=== PATIENT | female | born 1955 | race Caucasian/White ===

== ENCOUNTER 2020-01-29 05:04 | Inpatient (IN) | payer MEDICARE, OTHER ==
[2020-01-29] MEDS ORDERED: SODIUM CHLORIDE 0.9% 500 ML 500 ML IV STA (05:07)
[2020-01-29] MEDS ORDERED: SODIUM CHLORIDE 0.9% 1,000 ML IV STA (05:07)
--- NOTE | 2020-01-29 05:10 | ED ---
Recheck HPI - General Stated Complaint: N-Stemi Time Seen by Provider: 01/29/20 05:06 Source: EMS, RN notes reviewed, old records reviewed, Caregiver Mode of arrival: EMS Limitations: no limitations - History of Present Illness Initial Comments: This is a 64-year-old female who is accepted in transfer from [facility] in the [facility] for evaluation here in the ER secondary to abnormal labs worsening overall clinical and mental state, significant medical history of cardiomyopathy, bl indness, failure to thrive. Patient is from an extended care facility was sent the hospital for possible evaluation regarding jaundice. Patient was found to have significant cardiomyopathy hypertension although denying chest pain severely elevated troponin, left-sided pleural effusion, shock liver as well as multiple other laboratory abnormalities. Patient here in the emergency department remains without complaint, no chest pain occasionally short of breath MD Complaint: abnormal lab (elevTroponin,Weak,LiverFail) -: unknown Initial Visit For: other (weakness, maybe jaundice (wasnt found)) Returns Today for: Called Because of Abnormal Lab/Test (elevater Troponin), persistent/worsening pain related to initial visit, other (weakness) Symptoms Since Prior Visit: no new symptoms Context: called for abnormal lab result (shock liver, chf, elevTrop) Treatments Prior to Arrival: other (unknown) - Related Data Home Medications Medication Instructions Recorded Confirmed Acetaminophen Tab [Tylenol] 650 mg PO Q6H PRN MDD 3000MG 01/29/20 01/29/20 Amiodarone [Cordarone] 200 mg PO DAILY 01/29/20 01/29/20 Ascorbic Acid [Vitamin C] 500 mg PO DAILY 01/29/20 01/29/20 Aspirin 81 mg PO DAILY 01/29/20 01/29/20 Bisoprolol [Zebeta] 5 mg PO BID@0800,1600 01/29/20 01/29/20 Calcium Carb-Vit D 500Mg-200Un 1 tab PO DAILY 01/29/20 01/29/20 [Oscal 500+D] Epoetin Jeremias [Procrit] 10,000 unit SQ WE 01/29/20 01/29/20 Ezetimibe [Zetia] 10 mg PO DAILY 01/29/20 01/29/20 Ferrous Sulfate [Feosol] 325 mg PO DAILY 01/29/20 01/29/20 Insuln Asp Prt/Insulin Aspart 13 unit SQ HS@1900 PRN 01/29/20 01/29/20 [NovoLOG MIX 70-30 VIAL] Insuln Asp Prt/Insulin Aspart 20 unit SQ DAILY@0730 PRN 01/29/20 01/29/20 [NovoLOG MIX 70-30 VIAL] Insuln Asp Prt/Insulin Aspart 30 unit SQ DAILY@1800 01/29/20 01/29/20 [NovoLOG MIX 70-30 VIAL] Multivitamins, Thera [Multivitamin 1 tab PO DAILY 01/29/20 01/29/20 (formulary)] Omeprazole [PriLOSEC] 20 mg PO DAILY 01/29/20 01/29/20 Torsemide [Demadex] 50 mg PO DAILY 01/29/20 01/29/20 Ubidecarenone [Co Q-10] 200 mg PO DAILY 01/29/20 01/29/20 Venlafaxine HCl [Effexor XR] 37.5 mg PO DAILY 01/29/20 01/29/20 Allergies Allergy/AdvReac Type Severity Reaction Status Date / Time HAVEN Inhibitors Allergy Unknown Verified 01/29/20 07:09 metformin Allergy Unknown Verified 01/29/20 07:09 simvastatin [From Zocor] Allergy Unknown Verified 01/29/20 07:09 [id number] Reductase Allergy Unknown Verified 01/29/20 07:09 Inhibitor Review of Systems ROS Statement: Those systems with pertinent positive or pertinent negative responses have been documented in the HPI. ROS Other: All systems not noted in ROS Statement are negative. General Exam - General Exam Comments Initial Comments: diffuse anasarce Limitations: altered mental status General appearance: alert, in no apparent distress Head exam: Present: atraumatic, normocephalic, normal inspection Eye exam: Present: normal appearance, other (legally blind). Absent: scleral icterus, conjunctival injection, periorbital swelling ENT exam: Present: normal exam, mucous membranes dry Neck exam: Present: normal inspection. Absent: tenderness, meningismus, lymphadenopathy Respiratory exam: Present: decreased breath sounds (no BS left side). Absent: normal lung sounds bilaterally, respiratory distress, wheezes, rales, rhonchi, stridor Cardiovascular Exam: Present: normal rhythm, tachycardia, normal heart sounds. Absent: systolic murmur, diastolic murmur, rubs, gallop, clicks GI/Abdominal exam: Present: soft, normal bowel sounds. Absent: distended, tenderness, guarding, rebound, rigid Extremities exam: Present: normal inspection, full ROM, normal capillary refill. Absent: tenderness, pedal edema, joint swelling, calf tenderness Back exam: Present: normal inspection Neurological exam: Present: alert, oriented X3, CN II-XII intact Psychiatric exam: Present: normal affect, normal mood Skin exam: Present: warm, dry, intact, normal color. Absent: rash Course Vital Signs 01/29/20 01/29/20 01/29/20 05:07 06:21 06:50 Temperature 97.6 F 98.4 F Pulse Rate 110 H 66 67 Pulse Rate [ Pulse Oximetery ] Respiratory 20 18 15 Rate Blood Pressure 128/64 118/45 136/71 Blood Pressure [Right Arm Supine] O2 Sat by Pulse 96 93 L Oximetry 01/29/20 01/29/20 01/29/20 08:28 10:00 11:51 Temperature Pulse Rate 66 66 68 Pulse Rate [ Pulse Oximetery ] Respiratory 18 18 18 Rate Blood Pressure 143/52 162/67 151/90 Blood Pressure [Right Arm Supine] O2 Sat by Pulse 93 L 94 L 92 L Oximetry 01/29/20 01/29/20 01/29/20 12:12 13:01 14:02 Temperature 98.0 F Pulse Rate 67 63 62 Pulse Rate [ Pulse Oximetery ] Respiratory 24 20 20 Rate Blood Pressure 149/68 157/100 159/67 Blood Pressure [Right Arm Supine] O2 Sat by Pulse 92 L 99 100 Oximetry 01/29/20 01/29/20 01/29/20 14:30 15:54 16:57 Temperature 97.9 F Pulse Rate 64 64 63 Pulse Rate [ Pulse Oximetery ] Respiratory 20 18 18 Rate Blood Pressure 168/74 146/71 155/68 Blood Pressure [Right Arm Supine] O2 Sat by Pulse 98 96 97 Oximetry 01/29/20 01/29/20 01/29/20 18:36 18:46 20:09 Temperature 98.1 F 97.6 F Pulse Rate Pulse Rate [ 67 65 61 Pulse Oximetery ] Respiratory 20 20 18 Rate Blood Pressure Blood Pressure 191/80 172/76 191/76 [Right Arm Supine] O2 Sat by Pulse 100 100 100 Oximetry - Reevaluation(s) Reevaluation #1: 01/29/20 06:35 medical record is reviewed spoke with transferring physician transfer paperwork is reviewed Reevaluation #2: 01/29/20 06:35 patient is without complaint here in the ED, is sleeping, weak, no CP, is SOB - Consultations Consultation #1: spoke with Dr Mccabe for cardiology will page morning upward bound director Dr Nichole humphrey re ICU spoke w John Cruz does accept admission Medical Decision Making - Medical Decision Making I 64 female to the ER for evaluation patient in regards for evaluation regarding abnormal lab tests and was accepted in transfer secondary to CHF cardiomyopathy likely recent SD with now worsening troponin, troponin is gone from 8-36 2, patient will be admitted ICU secondary to multiple significant laboratory abnormalities - Lab Data Result diagrams: 01/29/20 05:31 01/29/20 05:31 Lab Results 01/29/20 01/29/20 01/29/20 Range/Units 05:31 05:31 05:31 WBC 7.8 (3.8-10.6) k/uL RBC 3.43 L (3.80-5.40) m/uL Hgb 10.3 L (11.4-16.0) gm/dL Hct 35.2 (34.0-46.0) % MCV 102.6 H (80.0-100.0) fL MCH 30.1 (25.0-35.0) pg MCHC 29.3 L (31.0-37.0) g/dL RDW 18.9 H (11.5-15.5) % Plt Count 393 (150-450) k/uL MPV 8.2 Neutrophils % 81 % Lymphocytes % 12 % Monocytes % 5 % Eosinophils % 0 % Basophils % 0 % Neutrophils # 6.3 (1.3-7.7) k/uL Lymphocytes # 1.0 (1.0-4.8) k/uL Monocytes # 0.4 (0-1.0) k/uL Eosinophils # 0.0 (0-0.7) k/uL Basophils # 0.0 (0-0.2) k/uL Hypochromasia Marked Anisocytosis Slight Macrocytosis Moderate PT 32.7 H (9.0-12.0) sec INR 3.3 H (<1.2) APTT >200.0 H* (22.0-30.0) sec Sodium (137-145) mmol/L Potassium (3.5-5.1) mmol/L Chloride (98-107) mmol/L Carbon Dioxide (22-30) mmol/L Anion Gap mmol/L BUN (7-17) mg/dL Creatinine (0.52-1.04) mg/dL Est GFR (CKD-EPI)AfAm (>60 ml/min/1.73 sqM) Est GFR (CKD-EPI)NonAf (>60 ml/min/1.73 sqM) Glucose (74-99) mg/dL Plasma Lactic Acid Tariq (0.7-2.0) mmol/L Calcium (8.4-10.2) mg/dL Phosphorus (2.5-4.5) mg/dL Magnesium (1.6-2.3) mg/dL Ferritin (10.0-291.0) ng/mL Total Bilirubin (0.2-1.3) mg/dL AST (14-36) U/L ALT (4-34) U/L Alkaline Phosphatase (38-126) U/L Ammonia (<30) umol/L Lactate Dehydrogenase (313-618) U/L Creatine Kinase (30-135) U/L Troponin I (0.000-0.034) ng/mL C-Reactive Protein (<10.0) mg/L NT-Pro-B Natriuret Pep pg/mL Total Protein (6.3-8.2) g/dL Albumin (3.5-5.0) g/dL Lipase (23-300) U/L TSH (0.465-4.680) mIU/L Salicylates mg/dL Urine Opiates Screen Not Detected (NotDetected) Ur Oxycodone Screen Not Detected (NotDetected) Urine Methadone Screen Not Detected (NotDetected) Ur Propoxyphene Screen Not Detected (NotDetected) Acetaminophen ug/mL Ur Barbiturates Screen Not Detected (NotDetected) U Tricyclic Antidepress Not Detected (NotDetected) Ur Phencyclidine Scrn Not Detected (NotDetected) Ur Amphetamines Screen Not Detected (NotDetected) U Methamphetamines Scrn Not Detected (NotDetected) U Benzodiazepines Scrn Not Detected (NotDetected) Urine Cocaine Screen Not Detected (NotDetected) U Marijuana (THC) Screen Not Detected (NotDetected) Serum Alcohol mg/dL 01/29/20 01/29/20 01/29/20 Range/Units 05:31 05:31 05:31 WBC (3.8-10.6) k/uL RBC (3.80-5.40) m/uL Hgb (11.4-16.0) gm/dL Hct (34.0-46.0) % MCV (80.0-100.0) fL MCH (25.0-35.0) pg MCHC (31.0-37.0) g/dL RDW (11.5-15.5) % Plt Count (150-450) k/uL MPV Neutrophils % % Lymphocytes % % Monocytes % % Eosinophils % % Basophils % % Neutrophils # (1.3-7.7) k/uL Lymphocytes # (1.0-4.8) k/uL Monocytes # (0-1.0) k/uL Eosinophils # (0-0.7) k/uL Basophils # (0-0.2) k/uL Hypochromasia Anisocytosis Macrocytosis PT (9.0-12.0) sec INR (<1.2) APTT (22.0-30.0) sec Sodium 138 (137-145) mmol/L Potassium 3.7 (3.5-5.1) mmol/L Chloride 102 (98-107) mmol/L Carbon Dioxide 28 (22-30) mmol/L Anion Gap 8 mmol/L BUN 93 H (7-17) mg/dL Creatinine 2.27 H (0.52-1.04) mg/dL Est GFR (CKD-EPI)AfAm 25 (>60 ml/min/1.73 sqM) Est GFR (CKD-EPI)NonAf 22 (>60 ml/min/1.73 sqM) Glucose 239 H (74-99) mg/dL Plasma Lactic Acid Tariq 1.7 (0.7-2.0) mmol/L Calcium 9.0 (8.4-10.2) mg/dL Phosphorus 7.1 H (2.5-4.5) mg/dL Magnesium 2.1 (1.6-2.3) mg/dL Ferritin 1713.9 H (10.0-291.0) ng/mL Total Bilirubin 0.7 (0.2-1.3) mg/dL AST 1010 H (14-36) U/L ALT 879 H (4-34) U/L Alkaline Phosphatase 301 H (38-126) U/L Ammonia <9 (<30) umol/L Lactate Dehydrogenase 2381 H (313-618) U/L Creatine Kinase 174 H (30-135) U/L Troponin I 32.000 H* (0.000-0.034) ng/mL C-Reactive Protein 13.3 H (<10.0) mg/L NT-Pro-B Natriuret Pep pg/mL Total Protein 6.0 L (6.3-8.2) g/dL Albumin 2.9 L (3.5-5.0) g/dL Lipase 236 (23-300) U/L TSH 3.470 (0.465-4.680) mIU/L Salicylates <1.0 mg/dL Urine Opiates Screen (NotDetected) Ur Oxycodone Screen (NotDetected) Urine Methadone Screen (NotDetected) Ur Propoxyphene Screen (NotDetected) Acetaminophen <10.0 ug/mL Ur Barbiturates Screen (NotDetected) U Tricyclic Antidepress (NotDetected) Ur Phencyclidine Scrn (NotDetected) Ur Amphetamines Screen (NotDetected) U Methamphetamines Scrn (NotDetected) U Benzodiazepines Scrn (NotDetected) Urine Cocaine Screen (NotDetected) U Marijuana (THC) Screen (NotDetected) Serum Alcohol <10 mg/dL 01/29/20 01/29/20 Range/Units 05:31 05:31 WBC (3.8-10.6) k/uL RBC (3.80-5.40) m/uL Hgb (11.4-16.0) gm/dL Hct (34.0-46.0) % MCV (80.0-100.0) fL MCH (25.0-35.0) pg MCHC (31.0-37.0) g/dL RDW (11.5-15.5) % Plt Count (150-450) k/uL MPV Neutrophils % % Lymphocytes % % Monocytes % % Eosinophils % % Basophils % % Neutrophils # (1.3-7.7) k/uL Lymphocytes # (1.0-4.8) k/uL Monocytes # (0-1.0) k/uL Eosinophils # (0-0.7) k/uL Basophils # (0-0.2) k/uL Hypochromasia Anisocytosis Macrocytosis PT (9.0-12.0) sec INR (<1.2) APTT (22.0-30.0) sec Sodium (137-145) mmol/L Potassium (3.5-5.1) mmol/L Chloride (98-107) mmol/L Carbon Dioxide (22-30) mmol/L Anion Gap mmol/L BUN (7-17) mg/dL Creatinine (0.52-1.04) mg/dL Est GFR (CKD-EPI)AfAm (>60 ml/min/1.73 sqM) Est GFR (CKD-EPI)NonAf (>60 ml/min/1.73 sqM) Glucose (74-99) mg/dL Plasma Lactic Acid Tariq (0.7-2.0) mmol/L Calcium (8.4-10.2) mg/dL Phosphorus (2.5-4.5) mg/dL Magnesium (1.6-2.3) mg/dL Ferritin (10.0-291.0) ng/mL Total Bilirubin (0.2-1.3) mg/dL AST (14-36) U/L ALT (4-34) U/L Alkaline Phosphatase (38-126) U/L Ammonia (<30) umol/L Lactate Dehydrogenase (313-618) U/L Creatine Kinase (30-135) U/L Troponin I (0.000-0.034) ng/mL C-Reactive Protein (<10.0) mg/L NT-Pro-B Natriuret Pep 35321 pg/mL Total Protein (6.3-8.2) g/dL Albumin (3.5-5.0) g/dL Lipase (23-300) U/L TSH (0.465-4.680) mIU/L Salicylates mg/dL Urine Opiates Screen (NotDetected) Ur Oxycodone Screen (NotDetected) Urine Methadone Screen (NotDetected) Ur Propoxyphene Screen (NotDetected) Acetaminophen ug/mL Ur Barbiturates Screen (NotDetected) U Tricyclic Antidepress (NotDetected) Ur Phencyclidine Scrn (NotDetected) Ur Amphetamines Screen (NotDetected) U Methamphetamines Scrn (NotDetected) U Benzodiazepines Scrn (NotDetected) Urine Cocaine Screen (NotDetected) U Marijuana (THC) Screen (NotDetected) Serum Alcohol <10 mg/dL - EKG Data -: EKG Interpreted by Me (EKG is sinus rhythm 70 ME 200 QRS 112 QTC 434) - Radiology Data Radiology results: report reviewed (CXR shows significant L pleural effusion ), image reviewed Critical Care Time Critical Care Time: Yes Total Critical Care Time: 31 Disposition Clinical Impression: CHF (congestive heart failure), Pleural effusion, left, NSTEMI (non-ST elevated myocardial infarction), Weakness, CKD (chronic kidney disease), Shock liver, Elevated troponin Disposition: ADMITTED IP TO THIS [facility] Condition: Critical Is patient prescribed a controlled substance at d/c from ED?: No
[2020-01-29] MEDS ORDERED: methylPREDNISolone SOD SUCCI 125 MG/2 ML VIAL IV STA (06:05)
[2020-01-29] MEDS ORDERED: MORPHINE SULFATE 4 MG/ML SYRINGE IV PRN (06:05)
[2020-01-29] MEDS ORDERED: IPRATROPIUM-ALBUTEROL 3 ML NEB INHALATION STA (06:05)
[2020-01-29] MEDS ORDERED: NITROGLYCERIN SL TABS 0.4 MG TAB SUBLINGUAL PRN (06:05)
[2020-01-29 06:13] LABS: Lactic Acid, Venous 1.7 mmol/L (0.7-2.0)
[2020-01-29 06:19] LABS: Anisocytosis Slight; Basophils % (A) 0 %; Eosinophils % (A) 0 %; HCT 35.2 % (34.0-46.0); HGB 10.3 gm/dL (11.4-16.0); Hypochromasia Marked; Lymphocytes % (A) 12 %; MCH 30.1 pg (25.0-35.0); MCHC 29.3 g/dL (31.0-37.0); MCV 102.6 fL (80.0-100.0); Macrocytosis Moderate; Mean Platelet Volume 8.2; Monocytes # (A) 0.4 k/uL (0-1.0); Monocytes % (A) 5 %; Neutrophils # (A) 6.3 k/uL (1.3-7.7); Neutrophils % (A) 81 %; Platelet Count 393 k/uL (150-450); RBC 3.43 m/uL (3.80-5.40); RDW 18.9 % (11.5-15.5); WBC 7.8 k/uL (3.8-10.6)
[2020-01-29 06:37] LABS: INR 3.3 (<1.2); Prothrombin Time 32.7 sec (9.0-12.0)
[2020-01-29 06:48] LABS: Acetaminophen <10.0 ug/mL; African American GFR (CKD) 25 (>60 ml/min/1.73 sqM); Albumin 2.9 g/dL (3.5-5.0); Alcohol <10 mg/dL; Alkaline Phosphatase 301 U/L (38-126); Anion Gap 8 mmol/L; Blood Urea Nitrogen 93 mg/dL (7-17); C Reactive Protein 13.3 mg/L (<10.0); Carbon Dioxide 28 mmol/L (22-30); Chloride 102 mmol/L (98-107); Creatine Kinase 174 U/L (30-135); Glucose 239 mg/dL (74-99); Lipase 236 U/L (23-300); Magnesium 2.1 mg/dL (1.6-2.3); Non-African American GFR(CKD) 22 (>60 ml/min/1.73 sqM); Phosphorus 7.1 mg/dL (2.5-4.5); Potassium 3.7 mmol/L (3.5-5.1); Salicylate <1.0 mg/dL; Sodium 138 mmol/L (137-145); Total Bilirubin 0.7 mg/dL (0.2-1.3)
[2020-01-29] MEDS ORDERED: NALOXONE 0.4 MG/ML 1 ML VIAL IV PRN (06:53)
[2020-01-29 06:54] LABS: ALT 879 U/L (4-34); AST 1010 U/L (14-36); LDH 2381 U/L (313-618)
[2020-01-29] MEDS ORDERED: HEPARIN SODIUM,PORCINE 5,000 UNIT/ML 1 ML VIAL IV PRN (06:54)
[2020-01-29 06:55] LABS: Amphetamine Screen,Urine Not Detected (NotDetected); Barbiturate Screen,Urine Not Detected (NotDetected); Benzodiazepines Screen,Urine Not Detected (NotDetected); Cocaine Screen,Urine Not Detected (NotDetected); Methadone Screen, Urine Not Detected (NotDetected); Opiate Screen,Urine Not Detected (NotDetected); Oxycodone Screen, Urine Not Detected (NotDetected); Phencyclidine Screen,Urine Not Detected (NotDetected); Tricyclic Antidepressant,Urine Not Detected (NotDetected); Urn Cannabinoid Scrn Not Detected (NotDetected)
[2020-01-29 06:56] LABS: Partial Thromboplastin Time >200.0 sec (22.0-30.0)
[2020-01-29] MEDS ORDERED: IPRATROPIUM-ALBUTEROL 3 ML NEB INHALATION SCH (08:00)
[2020-01-29 09:04] LABS: VBG PH 7.42 (7.31-7.41)
[2020-01-29] MEDS ORDERED: FUROSEMIDE 10 MG/ML 10 ML VIAL IV SCH (10:15)
--- NOTE | 2020-01-29 11:00 | ECHOF ---
Referral Reason:elevTrop MEASUREMENTS -------- HEIGHT: 162.6 cm WEIGHT: 103.4 kg BP: 136/71 RVIDd: 2.6 cm (< 3.3) IVSd: 1.1 cm (0.6 - 1.1) LVIDd: 3.7 cm (3.9 - 5.3) LVPWd: 1.2 cm (0.6 - 1.1) IVSs: 1.5 cm LVIDs: 2.7 cm LVPWs: 1.3 cm Ao Diam: 3.2 cm (2.0 - 3.7) AV Cusp: 1.0 cm (1.5 - 2.6) LA Diam: 3.7 cm (2.7 - 3.8) MV EXCURSION: 14.447 mm (> 18.000) MV EF SLOPE: 41 mm/s (70 - 150) EPSS: 0.7 cm MV E Pato: 0.65 m/s MV DecT: 238 ms MV A Pato: 0.54 m/s MV E/A Ratio: 1.20 AV maxP.17 mmHg AV meanP.89 mmHg RAP: 5.00 mmHg RVSP: 12.67 mmHg FINDINGS -------- This was a technically difficult study with suboptimal views. Pt. not compliant. The left ventricular size is normal. Left ventricular wall thickness is normal. There is severe g lobal hypokinesis of LV . Overall left ventricular systolic function is severely impaired with, an EF between 20 - 25 %. The RV was not well visualized but appears promident The left atrium was not well visualized. The right atrial size is normal. xx ml of Lumason was utilized for enhancement of images. AOV is possible Bicuspid. There is severe calcification with decreased leaflet excursion of the aor tic valve. Vmax is 2.06 m/s however dimensionless index of 0.28 consistent with moderate to severe a oritc stenosis. Degree of aortic stenosis likely underestimated due to low EF. Would recommend BAYRON, dobutamine stress echo or CT calcium scoring to further assess the degree of aortic stenosis if clin ically indicated. The mitral valve is normal. The mitral valve leaflets are mildly thickened. Mild mitral regurgita tion is present. The tricuspid valve appears structurally normal. Mild tricuspid regurgitation present. Right vent ricular systolic pressure is normal at < 35 mmHg. There is no pulmonic regurgitation present. The aortic root size is normal. IVC Not well visulized. There is a small, generalized pericardial effusion present. Large Pleural Effusion. CONCLUSIONS -------- 1. The left ventricular size is normal. 2. Left ventricular wall thickness is normal. 3. There is severe global hypokinesis of LV . 4. Overall left ventricular systolic function is severely impaired with, an EF between 20 - 25 %. 5. The RV was not well visualized but appears prominent. 6. RV Promident 7. There is severe calcification with decreased leaflet excursion of the aortic valve. Vmax is 2.06 m/s however dimensionless index of 0.28 consistent with moderate to severe aoritc stenosis. Degree o f aortic stenosis likely underestimated due to low EF. Would recommend BAYRON, dobutamine stress echo o r CT calcium scoring to further assess the degree of aortic stenosis if clinically indicated. 8. The mitral valve leaflets are mildly thickened. 9. Mild mitral regurgitation is present. 10. Mild tricuspid regurgitation present. 11. There is a small, generalized pericardial effusion present. 12. Large Pleural Effusion. HORSE DOCTOR: Claudia Schmidt RDCS
--- NOTE | 2020-01-29 11:29 | US ---
EXAMINATION TYPE: US abdomen complete DATE OF EXAM: 01/29/2020 COMPARISON: NONE CLINICAL HISTORY: transaminitis. elevated liver enzymes, cholecystectomy EXAM MEASUREMENTS: Liver Length: 13.1 cm Gallbladder Wall: Surgically absent CBD: 0.5 cm Right Kidney: 10.9 x 5.0 x 4.2 cm Extreme technical limitations due to patient's body habitus, morbidly obese and large amount of ove rlying bowel content Pancreas: Obscured by bowel gas Liver: only visualized intercostally, no obvious mass Gallbladder: Surgically absent Evidence for sonographic Allen's sign: no CBD: appears wnl Spleen/left kidney: unable to visualize, patient lying on left side and unable to move from that pos ition and with large body habitus, unable to visualize spleen or left kidney Right Kidney: no evidence of hydronephrosis Upper IVC: wnl Abd Aorta: Obscured by overlying bowel gas The liver is homogenous. The intrahepatic portion of the IVC and proximal abdominal aorta are within normal limits. There is no evidence of cholelithiasis. Common bile duct is unremarkable. The sple en is seen. Right kidney is symmetric and free of hydronephrosis. No renal lesions are seen, and cor tical medullary differentiation is maintained. IMPRESSION: There are limitations the exam. Postop changes.
--- NOTE | 2020-01-29 11:41 | P.HPIM ---
History of Present Illness H&P Date: 01/29/20 Chief Complaint: SOB The patient is a 64-year-old female with a history of chronic kidney disease, diabetes type 2 was hospitalized in [facility] on December 17 and after a three-week hospitalization patient was transferred to extended care facility. The patient was managed conservatively husbands states on initial presentation she had a rapid heart rate. He states that at time of discharge patient was also diagnosed with liver failure. The patient was in rehab and her spouse stated that he was notified that she was looking yellow so she was taken to outside facility. In the hospital patient was diagnosed with a non-ST elevation NM, elevated troponin, transaminitis, renal failure she was transferred for further care. The patient was seen in the emergency room, she denied chest pain , her main complaint was SOB. The patient was hospitalized for further work-upp and management. Review of Systems complete review of systems was done and negative other than as stated above Past Medical History Past Medical History: Atrial Fibrillation, GERD/Reflux, Hypertension, Renal Disease Additional Past Medical History / Comment(s): CHF History of Any Multi-Drug Resistant Organisms: None Reported Past Surgical History: No Surgical Hx Reported Past Psychological History: No Psychological Hx Reported Smoking Status: Never smoker Past Alcohol Use History: None Reported Past Drug Use History: None Reported Medications and Allergies Home Medications Medication Instructions Recorded Confirmed Type Acetaminophen Tab [Tylenol] 650 mg PO Q6H PRN MDD 3000MG 01/29/20 01/29/20 History Amiodarone [Cordarone] 200 mg PO DAILY 01/29/20 01/29/20 History Ascorbic Acid [Vitamin C] 500 mg PO DAILY 01/29/20 01/29/20 History Aspirin 81 mg PO DAILY 01/29/20 01/29/20 History Bisoprolol [Zebeta] 5 mg PO BID@0800,1600 01/29/20 01/29/20 History Calcium Carb-Vit D 500Mg-200Un 1 tab PO DAILY 01/29/20 01/29/20 History [Oscal 500+D] Epoetin Jeremias [Procrit] 10,000 unit SQ WE 01/29/20 01/29/20 History Ezetimibe [Zetia] 10 mg PO DAILY 01/29/20 01/29/20 History Ferrous Sulfate [Feosol] 325 mg PO DAILY 01/29/20 01/29/20 History Insuln Asp Prt/Insulin Aspart 13 unit SQ HS@1900 PRN 01/29/20 01/29/20 History [NovoLOG MIX 70-30 VIAL] Insuln Asp Prt/Insulin Aspart 20 unit SQ DAILY@0730 PRN 01/29/20 01/29/20 History [NovoLOG MIX 70-30 VIAL] Insuln Asp Prt/Insulin Aspart 30 unit SQ DAILY@1800 01/29/20 01/29/20 History [NovoLOG MIX 70-30 VIAL] Multivitamins, Thera [Multivitamin 1 tab PO DAILY 01/29/20 01/29/20 History (formulary)] Omeprazole [PriLOSEC] 20 mg PO DAILY 01/29/20 01/29/20 History Torsemide [Demadex] 50 mg PO DAILY 01/29/20 01/29/20 History Ubidecarenone [Co Q-10] 200 mg PO DAILY 01/29/20 01/29/20 History Venlafaxine HCl [Effexor XR] 37.5 mg PO DAILY 01/29/20 01/29/20 History Allergies Allergy/AdvReac Type Severity Reaction Status Date / Time HAVEN Inhibitors Allergy Unknown Verified 01/29/20 07:09 metformin Allergy Unknown Verified 01/29/20 07:09 simvastatin [From Zocor] Allergy Unknown Verified 01/29/20 07:09 Bftdnml-Jed-Vti Reductase Allergy Unknown Verified 01/29/20 07:09 Inhibitor Physical Exam Vitals: Vital Signs Temp Pulse Resp BP Pulse Ox 01/29/20 08:28 66 18 143/52 93 L 01/29/20 06:50 98.4 F 67 15 136/71 93 L 01/29/20 06:21 66 18 118/45 96 01/29/20 05:07 97.6 F 110 H 20 128/64 Intake and Output 01/28/20 01/29/20 01/29/20 22:59 06:59 14:59 Other: Weight 103.419 kg - Constitutional General appearance: no acute distress - EENT Eyes: PERRLA - Respiratory Respiratory: bilateral: diminished - Cardiovascular Rhythm: regular Abnormal Heart Sounds: systolic murmur ankle Peripheral Edema: bilateral: 2+ - Gastrointestinal General gastrointestinal: normal bowel sounds, soft - Integumentary Integumentary: normal - Neurologic Neurologic: CNII-XII intact - Musculoskeletal Musculoskeletal: strength equal bilaterally - Psychiatric Alert and oriented x 2 Psychiatric: appropriate affect Results CBC & Chem 7: 01/29/20 05:31 01/29/20 05:31 Labs: Abnormal Lab Results - Last 24 Hours (Table) 01/29/20 01/29/20 01/29/20 Range/Units 05:31 05:31 05:31 RBC 3.43 L (3.80-5.40) m/uL Hgb 10.3 L (11.4-16.0) gm/dL MCV 102.6 H (80.0-100.0) fL MCHC 29.3 L (31.0-37.0) g/dL RDW 18.9 H (11.5-15.5) % PT 32.7 H (9.0-12.0) sec INR 3.3 H (<1.2) APTT >200.0 H* (22.0-30.0) sec VBG pH (7.31-7.41) VBG pCO2 (37-51) mmHg VBG HCO3 (24-28) mmol/L BUN 93 H (7-17) mg/dL Creatinine 2.27 H (0.52-1.04) mg/dL Glucose 239 H (74-99) mg/dL Phosphorus 7.1 H (2.5-4.5) mg/dL AST 1010 H (14-36) U/L ALT 879 H (4-34) U/L Alkaline Phosphatase 301 H (38-126) U/L Lactate Dehydrogenase 2381 H (313-618) U/L Creatine Kinase 174 H (30-135) U/L Troponin I (0.000-0.034) ng/mL C-Reactive Protein 13.3 H (<10.0) mg/L Total Protein 6.0 L (6.3-8.2) g/dL Albumin 2.9 L (3.5-5.0) g/dL 01/29/20 01/29/20 01/29/20 Range/Units 05:31 08:50 08:50 RBC (3.80-5.40) m/uL Hgb (11.4-16.0) gm/dL MCV (80.0-100.0) fL MCHC (31.0-37.0) g/dL RDW (11.5-15.5) % PT (9.0-12.0) sec INR (<1.2) APTT (22.0-30.0) sec VBG pH 7.42 H (7.31-7.41) VBG pCO2 33 L (37-51) mmHg VBG HCO3 21 L (24-28) mmol/L BUN (7-17) mg/dL Creatinine (0.52-1.04) mg/dL Glucose (74-99) mg/dL Phosphorus (2.5-4.5) mg/dL AST (14-36) U/L ALT (4-34) U/L Alkaline Phosphatase (38-126) U/L Lactate Dehydrogenase (313-618) U/L Creatine Kinase (30-135) U/L Troponin I 32.000 H* 24.200 H* (0.000-0.034) ng/mL C-Reactive Protein (<10.0) mg/L Total Protein (6.3-8.2) g/dL Albumin (3.5-5.0) g/dL Assessment and Plan (1) NSTEMI (non-ST elevated myocardial infarction) Narrative/Plan: Discussed with Dr. Dickerson of cardiology,, plan for conservative management, IV Heparin with close monitoring Current Visit: Yes Status: Acute Code(s): I21.4 - NON-ST ELEVATION (NSTEMI) MYOCARDIAL INFARCTION SNOMED Code(s): 21754245 (2) CHF (congestive heart failure) Narrative/Plan: Acute on chronic systolic heart failure, strict I's and O's, daily weights, recent thoracentesis Current Visit: Yes Status: Acute Code(s): I50.9 - HEART FAILURE, UNSPECIFIED SNOMED Code(s): 57585429 (3) Pleural effusion, left Narrative/Plan: The patient spouse stated patient had a recent thoracentesis on Saturday we'll continue to monitor Current Visit: Yes Status: Acute Code(s): J90 - PLEURAL EFFUSION, NOT ELSEWHERE CLASSIFIED SNOMED Code(s): 67490349 (4) Diabetes Narrative/Plan: Continue to monitor, sliding scale coverage Current Visit: Yes Status: Acute Code(s): E11.9 - TYPE 2 DIABETES MELLITUS WITHOUT COMPLICATIONS SNOMED Code(s): 92737518 (5) CKD (chronic kidney disease) Narrative/Plan: Chronic kidney disease will monitor on really dose meds as needed Current Visit: Yes Status: Acute Code(s): N18.9 - CHRONIC KIDNEY DISEASE, UNSPECIFIED SNOMED Code(s): 774918928 Plan: Discussed CODE STATUS with patient's spouse, he understands the overall patient's prognosis is poor given her multi-organ failure, she does not have a POA
[2020-01-29] MEDS: METOPROLOL TARTRATE 25 MG TAB PO SCH ×2 (11:46→20:25)
[2020-01-29 11:55] LABS: Ferritin 1713.9 ng/mL (10.0-291.0)
[2020-01-29] MEDS ORDERED: methylPREDNISolone SOD SUCCI 125 MG/2 ML VIAL IV SCH (12:00)
[2020-01-29] MEDS: HEPARIN SOD,PORK IN 0.45% NACL 25,000 UNIT in 0.45% NACL 1 250ML.BAG IV SCH (14:26)
[2020-01-29] MEDS: NITROGLYCERIN OINT 1 INCH/GM PACKET TOPICAL SCH ×3 (14:56→23:06)
--- NOTE | 2020-01-29 16:06 | CONS ---
CONSULTATION This is a 64-year-old lady with type 2 diabetes and chronic kidney disease who has been living in a [facility] facility for the last couple of months. She has had multiple hospitalizations since November of this year. Apparently she presented with weakness and also had a myocardial infarction in late November and was hospitalized in [facility] and subsequently after a 3-week hospital stay, she was sent to an extended-care facility. I spoke to the patient's and obtained most of the details. The patient was diagnosed with liver failure, was in rehab for some recovery, and then developed some jaundice. She was taken to a hospital from her extended-care facility, was found to have elevated troponin and liver enzymes and was transferred here. At the time of my evaluation, patient is somewhat lethargic, does not give me much history, but insists that she does not have any chest pain or shortness of breath; she just feels weak and tired. Her shortness of breath has also improved since she came here. PAST MEDICAL HISTORY: 1. The patient has a history of atrial fibrillation documented in the chart, not verified by the patient's or by the patient. 2. She has history of type 2 diabetes. 3. Chronic kidney disease. 4. Hypertension. 5. Obesity. 6. Recent liver abnormalities; details are unclear. Please refer to the detailed History and Physical. MEDICATIONS: At home include amiodarone 200 mg daily, vitamin supplements, bisoprolol, aspirin 81 mg daily, Procrit injections, NovoLog insulin, omeprazole, Demodex, and she also takes Effexor. ALLERGIES: She is ALLERGIC TO METFORMIN, SIMVASTATIN AND HAVEN INHIBITORS. PHYSICAL EXAMINATION: On examination, blood pressure is 140/70. Pulse rate is 68 per minute, regular. HEENT: Unremarkable. Fundus was not examined by me. NECK: Supple. There is JVD of 1 cm. No carotid bruit. Heart exam reveals S1, S2 with ejection systolic murmur audible at the base of the heart. Second heart sound is preserved. Lungs reveal bilateral diminished air entry. Abdomen is distended, nontender. Lower extremities reveal bilateral mild edema, diminished pulses. CENTRAL NERVOUS SYSTEM: Grossly no focal deficits, but I did not do a detailed exam. EKG revealed sinus mechanism, poor R-wave progression over precordial leads, nonspecific ST-T changes, IVCD type picture. LABORATORY DATA: Laboratory data revealed that initial troponin was elevated at 32 and has come down to 24. Thyroid functions are normal. Creatinine is 2.27 and white count is normal. BNP is elevated at 85,000. Patient is COVID-negative. IMPRESSION: 1. Subacute [id number] myocardial infarction with congestive heart failure clinically. 2. Obesity. 3. Liver function abnormalities; apparently had some liver issues but details are unclear. Patient was on amiodarone. 4. Type 2 diabetes with chronic kidney disease. 5. History of myocardial infarction in late November, treated conservatively. RECOMMENDATIONS: This patient has multiple comorbid conditions and I would not recommend any aggressive intervention for her. I explained this to the patient. I also spoke to her at length. I am recommending that we heparinize her, but we have to be very careful with the heparin because her PTT may go high in view of liver function abnormalities. Echo revealed global decrease in contractility, estimated ejection fraction of about 25% or less. There is also evidence of some pulmonary hypertension clinically and also possibly some mild aortic stenosis based on clinical examination, but I think this would be mild. I will also obtain an ultrasound of the abdomen if possible in view of her liver function abnormalities. Prognosis remains very poor. I am not recommending any aggressive intervention, and I explained this to the patient. I suspect her myocardial infarction was at least 24 hours ago, based on the clinical picture. Prognosis remains poor. MMMAYDAL / IJN: [id number] /
[2020-01-29] MEDS: FUROSEMIDE 100 MG in SODIUM CHLORIDE 0.9% 90 ML IV SCH ×2 (16:55→23:28)
[2020-01-29 17:45] LABS: Glucose,Whole Blood 236 mg/dL (75-99)
[2020-01-29] MEDS ORDERED: INSULN ASP PRT/INSULIN ASPART 100 UNIT/ML 10 ML VIAL SQ SCH (18:00)
[2020-01-29] MEDS ORDERED: INSULN ASP PRT/INSULIN ASPART 100 UNIT/ML 10 ML VIAL SQ PRN (19:00)
--- NOTE | 2020-01-29 19:45 | P.CNPUL ---
History of Present Illness Consult date: 01/29/20 Reason for consult: pleural effusion History of present illness: This is a 64-year-old female patient and I've asked to see this patient because of a pleural effusion that was on the left side that was identified on the chest x-ray. This was a large left-sided pleural effusion. I came and saw the patient in the emergency department. He was supposed to go to the intensive care unit. I did a discussion with her was at the bedside. This patient has a very complicated medical history. The patient is legally blind and she has underlying diabetes mellitus. She has history of severe cardiomyopathy, CHF, valvular heart disease , previous coronary artery disease with myocardial infarctions and chronic atrial fibrillation. She has also chronic liver disease probably related to her CHF. The patient Was admitted to [facility] on multiple occasions regarding her medical problems. Most of her physicians are either in [facility] or [facility] in [facility]. She was sent to a halfway facility and she was referred to us for worsening shortness of breath. At a time of admission, the patient was found to be p rofoundly weak and debilitated. She does have diffuse anasarca with extensive edema in lower extremities bilaterally. Her troponin was positive. She denied having any chest pain. Nevertheless, her troponin max was found to be 32 and his progress and the downtrending is down to 17 for now. Meanwhile, the patient's proBNP level was 19,800. She had an acute kidney injury with a creatinine of 2.27 with a mean of 93. I think she does have an underlying chronic kidney disease. Her baseline creatinine is not known to me at this point in time. The patient had a bedside echocardiogram during this current hospital stay and the echo showed an ejection fraction of 20-25% and the patient had severe global hypokinesis of the LV. RV was not a critically visualized. The patient has a a possible bicuspid valve. There was severe calcification within the valves. There was also evidence of moderate to severe aortic stenosis. The degree of the aortic stenosis could not be estimated as the pat ient had a poor ejection fraction. Rest of the valves were adequate for now. There was a large left-sided pleural effusion that was also confirmed by a chest x-ray that was done at time of admission. Her cardiac rhythm was normal sinus. The patient had Q waves throughout the anterolateral leads indicating a previous KS. Ultrasound of the abdomen was essentially nonspecific. Upon further ques tioning, the patient states that she has received a recent thoracentesis of the left lung that was done in [facility] and the procedure itself did not give her much relief. Unfortunately, none of this information is available to me at a time of my evaluation. The patient herself is a poor historian. Some of the information is provided by the who is not detailed in his descriptions in terms of the patient's medical problems. For now, the patient is having some shortness of breath even at rest. She has orthopnea. She is profoundly fatigued and weak and lethargic and debilitated. LFTs were also abnormal with a AST of 1010 and ALT of 879. The patient's CRP was 13, LDH was 2081, ammonia level was less than 9. A routine coronavirus/Covid 19 nasal swab came back negative. Her serum albumin is at 2.9. Noted the patient's baseline performance and functional status is extremely poor. The patient is currently nonambulatory. She is 24 hour care and halfway facility. Review of Systems Constitutional: Reports daytime sleepiness, Reports fatigue, Reports lethargy, Reports poor appetite, Reports weakness, Reports weight gain Eyes: bilateral decreased vision, bilateral loss of peripheral vision, bilateral loss of vision Ears: deny: decreased hearing, ear discharge, earache, tinnitus Ears, nose, mouth and throat: Denies headache, Denies sore throat Breasts: absent: as per HPI, change in shape, gynecomastia, masses, nipple d ischarge, pain, skin changes, swelling Cardiovascular: Reports decreased exercise tolerance, Reports dyspnea on exertion, Reports edema, Reports leg edema, Reports paroxysmal nocturnal dyspnea, Reports shortness of breath Respiratory: Reports dyspnea Gastrointestinal: Reports as per HPI Genitourinary: Reports as per HPI Menstruation: Reports as per HPI Musculoskeletal: Reports as per HPI Musculoskeletal: bilateral: ankle swelling, absent: ankle pain, ankle stiffness Integumentary: Reports as per HPI Neurological: Reports as per HPI, Reports balance difficulties, Reports gait dysfunction, Reports weakness Psychiatric: Reports as per HPI Endocrine: Reports as per HPI Hematologic/Lymphatic: Reports as per HPI Allergic/Immunologic: Reports as per HPI Past Medical History Past Medical History: Atrial Fibrillation, GERD/Reflux, Hypertension, Renal Disease Additional Past Medical History / Comment(s): Coronary artery disease, previous KS, his history of atrial fibrillation, severe aortic stenosis, bicuspid aortic valve, congestion heart failure with impaired ejection fraction of 20-25%, chronic liver disease, chronic kidney disease, chronic anasarca and lower extremity edema, chronic left-sided pleural effusion History of Any Multi-Drug Resistant Organisms: None Reported Past Surgical History: No Surgical Hx Reported Past Psychological History: No Psychological Hx Reported Smoking Status: Never smoker Past Alcohol Use History: None Reported Past Drug Use History: None Reported Medications and Allergies Home Medications Medication Instructions Recorded Confirmed Type Acetaminophen Tab [Tylenol] 650 mg PO Q6H PRN MDD 3000MG 01/29/20 01/29/20 History Amiodarone [Cordarone] 200 mg PO DAILY 01/29/20 01/29/20 History Ascorbic Acid [Vitamin C] 500 mg PO DAILY 01/29/20 01/29/20 History Aspirin 81 mg PO DAILY 01/29/20 01/29/20 History Bisoprolol [Zebeta] 5 mg PO BID@0800,1600 01/29/20 01/29/20 History Calcium Carb-Vit D 500Mg-200Un 1 tab PO DAILY 01/29/20 01/29/20 History [Oscal 500+D] Epoetin Jeremias [Procrit] 10,000 unit SQ WE 01/29/20 01/29/20 History Ezetimibe [Zetia] 10 mg PO DAILY 01/29/20 01/29/20 History Ferrous Sulfate [Feosol] 325 mg PO DAILY 01/29/20 01/29/20 History Insuln Asp Prt/Insulin Aspart 13 unit SQ HS@1900 PRN 01/29/20 01/29/20 History [NovoLOG MIX 70-30 VIAL] Insuln Asp Prt/Insulin Aspart 20 unit SQ DAILY@0730 PRN 01/29/20 01/29/20 His tory [NovoLOG MIX 70-30 VIAL] Insuln Asp Prt/Insulin Aspart 30 unit SQ DAILY@1800 01/29/20 01/29/20 History [NovoLOG MIX 70-30 VIAL] Multivitamins, Thera [Multivitamin 1 tab PO DAILY 01/29/20 01/29/20 History (formulary)] Omeprazole [PriLOSEC] 20 mg PO DAILY 01/29/20 01/29/20 History Torsemide [Demadex] 50 mg PO DAILY 01/29/20 01/29/20 History Ubidecarenone [Co Q-10] 200 mg PO DAILY 01/29/20 01/29/20 History Venlafaxine HCl [Effexor XR] 37.5 mg PO DAILY 01/29/20 01/29/20 History Allergies Allergy/AdvReac Type Severity Reaction Status Date / Time HAVEN Inhibitors Allergy Unknown Verified 01/29/20 07:09 metformin Allergy Unknown Verified 01/29/20 07:09 simvastatin [From Zocor] Allergy Unknown Verified 01/29/20 07:09 [id number]-Hko-Yfj Reductase Allergy Unknown Verified 01/29/20 07:09 Inhibitor Physical Exam Vitals: Vital Signs Temp Pulse Pulse Resp BP BP Pulse Ox 01/29/20 18:46 65 20 172/76 100 01/29/20 18:36 98.1 F 67 20 191/80 100 01/29/20 16:57 63 18 155/68 97 01/29/20 15:54 64 18 146/71 96 01/29/20 14:30 97.9 F 64 20 168/74 98 01/29/20 14:02 62 20 159/67 100 01/29/20 13:01 63 20 157/100 99 01/29/20 12:12 98.0 F 67 24 149/68 92 L 01/29/20 11:51 68 18 151/90 92 L 01/29/20 10:00 66 18 162/67 94 L 01/29/20 08:28 66 18 143/52 93 L 01/29/20 06:50 98.4 F 67 15 136/71 93 L 01/29/20 06:21 66 18 118/45 96 01/29/20 05:07 97.6 F 110 H 20 128/64 Intake and Output 01/29/20 01/29/20 01/29/20 06:59 14:59 22:59 Other: Voiding Method Indwelling Catheter Weight 103.419 kg The patient is legally blind. She is able to communicate patient is very much lethargic and somnolent. She is arousable. She can state few sentences. She is nonambulatory. She is extremely weak. Head exam was generally normal. There was no scleral icterus or corneal arcus. Mucous membranes were moist. Neck was supple and with jugular venous distension, no thyromegaly, or carotid bruits. Carotids were easily palpable bilaterally. There was no adenopathy. lung sounds are absent on the left compared to right. There is consistent with a pleural effusion on the left. There is also dullness to percussion. Heart sounds are irregular and there is a systolic ejection murmur grade 3/6 heard throughout the precordium. Abdomen is obese soft nontender. No ascites. No direct tenderness 1 tensile guarding. There is anterior abdominal wall edema Extremities revealed extensive edema bilaterally with pitting +2. No cyanosis. No clubbing. Neurologically, the patient is somnolent and sleepy at arousable. There is global weakness in all 4 extremities. His motor weakness as the patient is un able to even raise her head off the bed. Reflexes symmetrical bilaterally. Tubes are equal and reactive to light. No facial asymmetry. She is arousable. She can communicate. She is alert and oriented 2-3. Results - Laboratory Findings CBC and BMP: 01/29/20 05:31 01/29/20 05:31 PT/INR, D-dimer PT 32.7 sec (9.0-12.0) H 01/29/20 05:31 INR 3.3 (<1.2) H 01/29/20 05:31 Abnormal lab findings: Abnormal Labs 01/29/20 01/29/20 01/29/20 05:31 05:31 05:31 RBC 3.43 L Hgb 10.3 L MCV 102.6 H MCHC 29.3 L RDW 18.9 H PT 32.7 H INR 3.3 H APTT >200.0 H* VBG pH VBG pCO2 VBG HCO3 BUN 93 H Creatinine 2.27 H Glucose 239 H POC Glucose (mg/dL) Phosphorus 7.1 H Ferritin 1713.9 H AST 1010 H ALT 879 H Alkaline Phosphatase 301 H Lactate Dehydrogenase 2381 H Creatine Kinase 174 H Troponin I C-Reactive Protein 13.3 H Total Protein 6.0 L Albumin 2.9 L 01/29/20 01/29/20 01/29/20 05:31 08:50 08:50 RBC Hgb MCV MCHC RDW PT INR APTT VBG pH 7.42 H VBG pCO2 33 L VBG HCO3 21 L BUN Creatinine Glucose POC Glucose (mg/dL) Phosphorus Ferritin AST ALT Alkaline Phosphatase Lactate Dehydrogenase Creatine Kinase Troponin I 32.000 H* 24.200 H* C-Reactive Protein Total Protein Albumin 01/29/20 01/29/20 01/29/20 11:00 12:05 17:42 RBC Hgb MCV MCHC RDW PT INR APTT VBG pH VBG pCO2 VBG HCO3 BUN Creatinine Glucose POC Glucose (mg/dL) 236 H Phosphorus Ferritin AST ALT Alkaline Phosphatase Lactate Dehydrogenase Creatine Kinase Troponin I 17.700 H* 17.000 H* C-Reactive Protein Total Protein Albumin - Diagnostic Findings Chest x-ray: image reviewed Assessment and Plan Plan: 1 large left-sided pleural effusion, consistent with underlying CHF. The patient states that she has had previous thoracentesis and there has been reaccumulation of left-sided pleural effusion 2 chronic dyspnea secondary to CHF and a large left-sided pleural effusion 3 acute non-ST segment elevation myocardial infarction with elevated troponins which are downtrending 4 CHF with systolic heart failure due to an ejection fraction of 20-25% 5 severe aortic stenosis with a possibility of a bicuspid aortic valve. The exact and the severity of the valve stenosis cannot be established at this point in time based on low ejection fraction and poor windows an echocardiogram 6 history of atrial fibrillation, current rhythm is sinus 7 coronary artery disease with Q waves involving the anterior and the lateral leads consistent with previous KS 8 chronic kidney disease with possibility of an acute kidney injury on top of chronic kidney disease 9 chronic liver disease, probably related to CHF and congestive hepatopathy. LFTs are quite elevated. Correlation profile needs to be repeated. Ammonia level was nonelevated. 10 diabetes mellitus 11 legal blindness secondary to diabetes mellitus 12 coagulopathy, likely secondary to chronic liver disease plan Unfortunately, the patient's condition is extremely debilitated. Would like to get records from the other hospital in terms of further details of her previous hospital admissions and hospital treatment. For now, the patient and her were not consistent thoracentesis. Apparently the patient had a recent thoracentesis this was done and make her bad ax and as such that has been rapidly examination of the left-sided pleural effusion. I'm recommending diuresis. I'm putting the patient related. A timely grams an hour. Cardiology has made recommendations for anticoagulation. This should be done cautiously knowing that the patient may be coagulopathic, chronic liver disease. I will leave it up to cardiology. The patient is extremely debilitated. I think her baseline performance and functional status has been extremely poor and she may not be a candidate for any further cardiac interventions. We'll hold off on thoracentesis at this point in time special with an underlying coagulopathy. Continue medical management for now. Optimize her CHF. Continue diuresis. No need to come to the intensive care unit. I subsequent status of DO NOT RESUSCITATE and DO NOT INTUBATE with the and the patient and this discussion took place in the emergency department. Repeat labs in the morning. Repeat chest x-ray in the morning. Keep oxygen flow by nasal cannula at 4 L. We'll continue to follow. Very poor prognosis
[2020-01-29 20:24] LABS: Glucose,Whole Blood 292 mg/dL (75-99)
[2020-01-29] MEDS ORDERED: hydrALAZINE HCL 50 MG TAB PO STA (21:12)
[2020-01-30] MEDS: NITROGLYCERIN OINT 1 INCH/GM PACKET TOPICAL SCH ×3 (06:27→17:25)
[2020-01-30] MEDS: HEPARIN SOD,PORK IN 0.45% NACL 25,000 UNIT in 0.45% NACL 1 250ML.BAG IV SCH ×2 (06:28→17:23)
[2020-01-30 06:33] LABS: Glucose,Whole Blood 278 mg/dL (75-99)
[2020-01-30] MEDS ORDERED: INSULN ASP PRT/INSULIN ASPART 100 UNIT/ML 10 ML VIAL SQ PRN (07:30)
[2020-01-30] MEDS ORDERED: VANCOMYCIN IV PER PHARMACY 1 EACH MISC MISCELLANE PRN (08:41)
[2020-01-30] MEDS: CALCIUM CARB-VIT D 500MG-200UN 1 EACH TAB PO SCH (08:49)
[2020-01-30] MEDS: FERROUS SULFATE 325 MG TAB PO SCH (08:49)
[2020-01-30] MEDS: ASCORBIC ACID 500 MG TAB PO SCH (08:49)
[2020-01-30] MEDS: ASPIRIN 81 MG PO SCH (08:49)
[2020-01-30] MEDS: PANTOPRAZOLE 40 MG TABLET PO SCH (08:50)
[2020-01-30] MEDS: VENLAFAXINE HCL ER 37.5 MG CAP PO SCH (08:50)
[2020-01-30] MEDS: METOPROLOL TARTRATE 25 MG TAB PO SCH ×2 (08:50→21:20)
[2020-01-30] MEDS ORDERED: ASPIRIN 81 MG PO SCH (09:00)
[2020-01-30] MEDS ORDERED: VANCOMYCIN 1,750 MG in SODIUM CHLORIDE 0.9% 500 ML 500 ML IVPB ONE (09:00)
[2020-01-30] MEDS ORDERED: ASPIRIN 325 MG TAB PO SCH (09:00)
[2020-01-30 10:17] LABS: Anisocytosis Slight; Basophils % (A) 0 %; Eosinophils % (A) 0 %; HCT 32.2 % (34.0-46.0); HGB 9.4 gm/dL (11.4-16.0); Hypochromasia Marked; Lymphocytes # (A) 0.5 k/uL (1.0-4.8); Lymphocytes % (A) 16 %; MCH 30.3 pg (25.0-35.0); MCHC 29.2 g/dL (31.0-37.0); MCV 103.6 fL (80.0-100.0); Macrocytosis Marked; Monocytes # (A) 0.2 k/uL (0-1.0); Monocytes % (A) 6 %; Neutrophils # (A) 2.6 k/uL (1.3-7.7); Neutrophils % (A) 76 %; Platelet Count 401 k/uL (150-450); RBC 3.11 m/uL (3.80-5.40); RDW 19.1 % (11.5-15.5); WBC 3.4 k/uL (3.8-10.6)
--- NOTE | 2020-01-30 10:19 | P.PN ---
Subjective Progress Note Date: 01/30/20 This is a 64-year-old female patient and I've asked to see this patient because of a pleural effusion that was on the left side that was identified on the chest x-ray. This was a large left-sided pleural effusion. I came and saw the patient in the emergency department. He was supposed to go to the intensive care unit. I did a discussion with her was at the bedside. This patient has a very complicated medical history. The patient is legally blind and she has underlying diabetes mellitus. She has history of severe cardiomyopathy, CHF, valvular heart disease , previous coronary artery disease with myocardial infarctions and chronic atrial fibrillation. She has also chronic liver disease probably related to her CHF. The patient Was admitted to [facility] on multiple occasions regarding her medical problems. Most of her physicians are either in [facility] or [facility] in [facility]. She was sent to a half-way facility and she was referred to us for worsening shortness of breath. At a time of admission, the patient was found to be profoundly weak and debilitated. She does have diffuse anasarca with extensive edema in lower extremities bilaterally. Her troponin was positive. She denied having any chest pain. Nevertheless, her troponin max was found to be 32 and his progress and the downtrending is down to 17 for now. Meanwhile, the patient's proBNP level was 19,800. She had an acute kidney injury with a creatinine of 2.27 with a mean of 93. I think she does have an underlying chronic kidney disease. Her baseline creatinine is not known to me at this point in time. The patient had a bedside echocardiogram during this current hospital stay and the echo showed an ejection fraction of 20-25% and the patient had severe global hypokinesis of the LV. RV was not a critically visualized. The patient has a a possible bicuspid valve. There was severe calcification within the valves. There was also evidence of moderate to severe aortic taryn nosis. The degree of the aortic stenosis could not be estimated as the patient had a poor ejection fraction. Rest of the valves were adequate for now. There was a large left-sided pleural effusion that was also confirmed by a chest x-ray that was done at time of admission. Her cardiac rhythm was normal sinus. The patient had Q waves throughout the anterolateral leads indicating a previous IN. Ultrasound of the abdomen was essentially nonspecific. Upon further questioning, the patient states that she has received a recent thoracentesis of the left lung that was done in [facility] and the procedure itself did not give her much relief. Unfortunately, none of this information is available to me at a time of my evaluation. The patient herself is a poor historian. Some of the information is provided by the who is not detailed in his descriptions in terms of the patient's medical problems. For now, the patient is having some shortness of breath even at rest. She has orthopnea. She is profoundly fatigued and weak and lethargic and debilitated. LFTs were also abnormal with a AST of 1010 and ALT of 879. The patient's CRP was 13, LDH was 2081, ammonia level was less than 9. A routine coronavirus/Covid 19 nasal swab came back negative. Her serum albumin is at 2.9. Noted the patient's baseline performance and functional status is extremely poor. The patient is currently nonambulatory. She is 24 hour care and half-way facility. 01/30/2020, the patient's condition essentially unchanged compared to yesterday. Extremely lethargic and somnolent. She is currently on a Lasix drip at 10 mg an hour. No significant improvement in the volume status. She is also on IV heparin per cardiology. No worsening in her shortness of breath. The patient is currently on oxygen by nasal cannula at 4 L. No use of accessory muscle breathing. No signs of any significant respiratory distress. Follow-up chest x-ray is to follow today. Objective - Vital Signs Vital signs: Vital Signs Temp 99.0 F 01/30/20 08:45 Pulse 77 01/30/20 08:45 Resp 18 01/30/20 08:45 BP 108/53 01/30/20 08:45 Pulse Ox 96 01/30/20 08:45 Intake & Output 01/29/20 01/30/20 01/30/20 18:59 06:59 18:59 Intake Total 203.863 Output Total 400 300 Balance -196.137 -300 Weight 119.5 kg Intake: Intake, IV Titration 203.863 Amount Furosemide 100 mg In 65.5 Sodium Chloride 0.9% 90 ml @ 10 MG/HR 10 mls/hr IV .Q10H [facility] Rx#: [id number] Heparin Sod,Pork in 0.45% 138.363 NaCl 25,000 unit In 0.45 % NaCl 1 250ml.bag @ 9.7 UNITS/KG/HR 10.032 mls/hr IV .Q24H [facility] Rx#: [id number] Oral 0 Output: Urine 400 300 Other: Voiding Method Indwelling Catheter Indwelling Catheter Indwelling Catheter # Bowel Movements 0 - Exam The patient is legally blind. She is able to communicate patient is very much lethargic and somnolent. She is arousable. She can state few sentences. She is nonambulatory. She is extremely weak. Head exam was generally normal. There was no scleral icterus or corneal arcus. Mucous membranes were moist. Neck was supple and with jugular venous distension, no thyromegaly, or carotid bruits. Carotids were easily palpable bilaterally. There was no adenopathy. lung sounds are absent on the left compared to right. There is consistent with a pleural effusion on the left. There is also dullness to percussion. Heart sounds are irregular and there is a systolic ejection murmur grade 3/6 heard throughout the precordium. Abdomen is obese soft nontender. No ascites. No direct tenderness 1 tensile guarding. There is anterior abdominal wall edema Extremities revealed extensive edema bilaterally with pitting +2. No cyanosis. No clubbing. Neurologically, the patient is somnolent and sleepy at arousable. There is global weakness in all 4 extremities. His motor weakness as the patient is u nable to even raise her head off the bed. Reflexes symmetrical bilaterally. Tubes are equal and reactive to light. No facial asymmetry. She is arousable. She can communicate. She is alert and oriented 2-3. - Labs CBC & Chem 7: 01/29/20 05:31 01/29/20 05:31 Labs: Abnormal Lab Results - Last 24 Hours (Table) 01/29/20 01/29/20 01/29/20 Range/Units 05:31 11:00 12:05 APTT (22.0-30.0) sec POC Glucose (mg/dL) (75-99) mg/dL Ferritin 1713.9 H (10.0-291.0) ng/mL Troponin I 17.700 H* 17.000 H* (0.000-0.034) ng/mL 01/29/20 01/29/20 01/29/20 Range/Units 17:42 19:02 20:21 APTT 83.0 H (22.0-30.0) sec POC Glucose (mg/dL) 236 H 292 H (75-99) mg/dL Ferritin (10.0-291.0) ng/mL Troponin I (0.000-0.034) ng/mL 01/30/20 01/30/20 Range/Units 01:56 06:09 APTT 57.5 H (22.0-30.0) sec POC Glucose (mg/dL) 278 H (75-99) mg/dL Ferritin (10.0-291.0) ng/mL Troponin I (0.000-0.034) ng/mL Microbiology - Last 24 Hours (Table) 01/29/20 05:31 Blood Culture Gram Stain - Preliminary Blood 01/29/20 05:31 Blood Culture - Final Blood Assessment and Plan Plan: 1 large left-sided pleural effusion, consistent with underlying CHF. The patient states that she has had previous thoracentesis and there has been reaccumulation of left-sided pleural effusion 2 chronic dyspnea secondary to CHF and a large left-sided pleural effusion 3 acute non-ST segment elevation myocardial infarction with elevated troponins which are downtrending 4 CHF with systolic heart failure due to an ejection fraction of 20-25% 5 severe aortic stenosis with a possibility of a bicuspid aortic valve. The exact and the severity of the valve stenosis cannot be established at this point in time based on low ejection fraction and poor windows an echocardiogram 6 history of atrial fibrillation, current rhythm is sinus 7 coronary artery disease with Q waves involving the anterior and the lateral leads consistent with previous [place] 8 chronic kidney disease with possibility of an acute kidney injury on top of chronic kidney disease 9 chronic liver disease, probably related to CHF and congestive hepatopathy. LFTs are quite elevated. Correlation profile needs to be repeated. Ammonia level was nonelevated. 10 diabetes mellitus 11 legal blindness secondary to diabetes mellitus 12 coagulopathy, likely secondary to chronic liver disease plan The patient was seen in follow-up Clinically, the patient has no major change since yesterday. Continue Lasix drip Repeat chest x-ray today Unfortunately, the patient's condition is extremely debilitated. Would like to get records from the other hospital in terms of further details of her previous hospital admissions and hospital treatment. For now, the patient and her were not consistent thoracentesis. Apparently the patient had a recent thoracentesis this was done and make her bad ax and as such that has been rapidly examination of the left-sided pleural effusion. I'm recommending diuresis. I'm putting the patient related. A timely grams an hour. Cardiology has made recommendations for anticoagulation. This should be done cautiously knowing that the patient may be coagulopathic, chronic liver disease. I will leave it up to cardiology. The patient is extremely debilitated. I think her baseline performance and functional status has been extremely poor and she may not be a candidate for any further cardiac interventions. We'll hold off on thoracentesis at this point in time special with an underlying coagulopathy. Continue medical management for now. Optimize her CHF. Continue diuresis. No need to come to the intensive care unit. I subsequent status of DO NOT RESUSCITATE and DO NOT INTUBATE with the and the patient and this discussion took place in the emergency department. We'll repeat a chest x-ray today. We'll continue to follow.
--- NOTE | 2020-01-30 11:07 | XR ---
EXAMINATION TYPE: XR chest 1V portable DATE OF EXAM: 01/30/2020 COMPARISON: 01/28/2020 INDICATION: Pleural effusion TECHNIQUE: Single frontal view of the chest is obtained. FINDINGS: The heart size is indistinct. The pulmonary vasculature is normal. There is complete opacification of the left lung. Large pleural effusion could be considered. The p atient is rotated to the left. IMPRESSION: 1. Opacification of the left lung. Findings can be compatible with a large pleural effusion.
[2020-01-30] MEDS: FUROSEMIDE 100 MG in SODIUM CHLORIDE 0.9% 90 ML IV SCH ×2 (11:18→18:36)
[2020-01-30 11:35] LABS: Albumin 2.6 g/dL (3.5-5.0); Calcium 8.8 mg/dL (8.4-10.2); Potassium 3.8 mmol/L (3.5-5.1); Total Bilirubin 0.6 mg/dL (0.2-1.3); Total Protein 5.1 g/dL (6.3-8.2)
[2020-01-30 11:40] LABS: Glucose,Whole Blood 297 mg/dL (75-99)
[2020-01-30] MEDS: INSULIN ASPART (NovoLOG) 100 UNIT/ML VIAL SQ SCH ×3 (12:07→21:20)
--- NOTE | 2020-01-30 12:56 | P.CONS ---
History of Present Illness - Reason for Consult Consult date: 01/29/20 Elevated liver enzymes Requesting physician: Bianka Cruz - Chief Complaint Shortness of breath - History of Present Illness 64-year-old female with multiple medical comorbidities including chronic kidney disease, diabetes mellitus, congestive heart failure, valvular heart disease, atrial fibrillation, coronary artery disease who was transferred from outside hospital for evaluation of a non-ST elevation VT. The patient is seen in the emergency department with her bedside. He is reporting multiple recent hospitalizations due to fluid overload requiring diuretics. He denies any history of liver disease, chronic alcohol use, unknown family history as the pat ient was adopted. No history of viral hepatitis in the past. Patient was found to have markedly elevated liver enzymes with total bilirubin 0.7, alkaline phosphatase 301, AST 1010, ALT 879 with troponins 32, WBC 7.8, hemoglobin 10.3 and platelet count of 393,000. No signs or symptoms of GI bleeding reported. Ultrasound of the abdomen significant for a homogeneous liver with a prior cholecystectomy and a normal CBD. Review of Systems REVIEW OF SYSTEMS: CONSTITUTIONAL: Denies any fevers, chills, weight change but she does report fatigue. CARDIOVASCULAR: Denies any chest pain, palpitations high or low blood pressures RESPIRATORY: Denies any hemoptysis or cough with the patient does report shortness of breath. GENITOURINARY: No dysuria or hematuria. MUSCULOSKELETAL: No weakness reported. SKIN: Denies any new rashes or lesions, jaundice or pallor. PSYCHIATRIC: Denies any depression or anxiety. NEUROLOGY: Denies headache, denies any new focal deficits. EARS/NOSE/THROAT: No recent hearing change, congestion, nasal discharge or sore throat. EYES: No pain in eyes, discharge or change in vision. GASTROINTESTINAL: As per HPI. Past Medical History Past Medical History: Atrial Fibrillation, GERD/Reflux, Hypertension, Renal Disease Additional Past Medical History / Comment(s): CHF History of Any Multi-Drug Resistant Organisms: None Reported Past Surgical History: No Surgical Hx Reported Past Psychological History: No Psychological Hx Reported Smoking Status: Never smoker Past Alcohol Use History: None Reported Past Drug Use History: None Reported Additional History: Family history: Reviewed with the patient and noncontributory to current medical presentation Medications and Allergies Home Medications Medication Instructions Recorded Confirmed Type Acetaminophen Tab [Tylenol] 650 mg PO Q6H PRN MDD 3000MG 01/29/20 01/29/20 History Amiodarone [Cordarone] 200 mg PO DAILY 01/29/20 01/29/20 History Ascorbic Acid [Vitamin C] 500 mg PO DAILY 01/29/20 01/29/20 History Aspirin 81 mg PO DAILY 01/29/20 01/29/20 History Bisoprolol [Zebeta] 5 mg PO BID@0800,1600 01/29/20 01/29/20 History Calcium Carb-Vit D 500Mg-200Un 1 tab PO DAILY 01/29/20 01/29/20 History [Oscal 500+D] Epoetin Jeremias [Procrit] 10,000 unit SQ WE 01/29/20 01/29/20 History Ezetimibe [Zetia] 10 mg PO DAILY 01/29/20 01/29/20 History Ferrous Sulfate [Feosol] 325 mg PO DAILY 01/29/20 01/29/20 History Insuln Asp Prt/Insulin Aspart 13 unit SQ HS@1900 PRN 01/29/20 01/29/20 History [NovoLOG MIX 70-30 VIAL] Insuln Asp Prt/Insulin Aspart 20 unit SQ DAILY@0730 PRN 01/29/20 01/29/20 History [NovoLOG MIX 70-30 VIAL] Insuln Asp Prt/Insulin Aspart 30 unit SQ DAILY@1800 01/29/20 01/29/20 History [NovoLOG MIX 70-30 VIAL] Multivitamins, Thera [Multivitamin 1 tab PO DAILY 01/29/20 01/29/20 History (formulary)] Omeprazole [PriLOSEC] 20 mg PO DAILY 01/29/20 01/29/20 History Torsemide [Demadex] 50 mg PO DAILY 01/29/20 01/29/20 History Ubidecarenone [Co Q-10] 200 mg PO DAILY 01/29/20 01/29/20 History Venlafaxine HCl [Effexor XR] 37.5 mg PO DAILY 01/29/20 01/29/20 History Allergies Allergy/AdvReac Type Severity Reaction Status Date / Time HAVEN Inhibitors Allergy Unknown Verified 01/29/20 07:09 metformin Allergy Unknown Verified 01/29/20 07:09 simvastatin [From Zocor] Allergy Unknown Verified 01/29/20 07:09 Gnokutr-Ycx-Utk Reductase Allergy Unknown Verified 01/29/20 07:09 Inhibitor Physical Exam Vitals: Vital Signs Temp Pulse Resp BP Pulse Ox 01/29/20 14:30 97.9 F 64 20 168/74 98 01/29/20 14:02 62 20 159/67 100 01/29/20 13:01 63 20 157/100 99 01/29/20 12:12 98.0 F 67 24 149/68 92 L 01/29/20 11:51 68 18 151/90 92 L 01/29/20 10:00 66 18 162/67 94 L 01/29/20 08:28 66 18 143/52 93 L 01/29/20 06:50 98.4 F 67 15 136/71 93 L 01/29/20 06:21 66 18 118/45 96 01/29/20 05:07 97.6 F 110 H 20 128/64 Intake and Output 01/29/20 01/29/20 01/29/20 06:59 14:59 22:59 Other: Weight 103.419 kg On physical examination, patient appears comfortable in no apparent distress. HEAD: Normocephalic, atraumatic. EYES: No scleral icterus. No conjunctival injection. MOUTH: No lesions, tongue midline. NECK: Trachea midline, no gross abnormalities. CHEST: Decreased air entry in all lung segura. HEART: S1-S2 appreciated. ABDOMEN: Soft, obese and nontender to palpation. Bowel sounds are positive. No organomegaly. No guarding or rigidity. EXTREMITIES: Bilateral pedal edema. SKIN: No rashes, no jaundice. NEUROLOGIC: Alert and oriented to person and place. No focal deficits. Results CBC & Chem 7: 01/30/20 10:05 01/30/20 10:05 Labs: Abnormal Lab Results - Last 24 Hours (Table) 01/29/20 01/29/20 01/29/20 Range/Units 05:31 05:31 05:31 RBC 3.43 L (3.80-5.40) m/uL Hgb 10.3 L (11.4-16.0) gm/dL MCV 102.6 H (80.0-100.0) fL MCHC 29.3 L (31.0-37.0) g/dL RDW 18.9 H (11.5-15.5) % PT 32.7 H (9.0-12.0) sec INR 3.3 H (<1.2) APTT >200.0 H* (22.0-30.0) sec VBG pH (7.31-7.41) VBG pCO2 (37-51) mmHg VBG HCO3 (24-28) mmol/L BUN 93 H (7-17) mg/dL Creatinine 2.27 H (0.52-1.04) mg/dL Glucose 239 H (74-99) mg/dL Phosphorus 7.1 H (2.5-4.5) mg/dL Ferritin 1713.9 H (10.0-291.0) ng/mL AST 1010 H (14-36) U/L ALT 879 H (4-34) U/L Alkaline Phosphatase 301 H (38-126) U/L Lactate Dehydrogenase 2381 H (313-618) U/L Creatine Kinase 174 H (30-135) U/L Troponin I (0.000-0.034) ng/mL C-Reactive Protein 13.3 H (<10.0) mg/L Total Protein 6.0 L (6.3-8.2) g/dL Albumin 2.9 L (3.5-5.0) g/dL 01/29/20 01/29/20 01/29/20 Range/Units 05:31 08:50 08:50 RBC (3.80-5.40) m/uL Hgb (11.4-16.0) gm/dL MCV (80.0-100.0) fL MCHC (31.0-37.0) g/dL RDW (11.5-15.5) % PT (9.0-12.0) sec INR (<1.2) APTT (22.0-30.0) sec VBG pH 7.42 H (7.31-7.41) VBG pCO2 33 L (37-51) mmHg VBG HCO3 21 L (24-28) mmol/L BUN (7-17) mg/dL Creatinine (0.52-1.04) mg/dL Glucose (74-99) mg/dL Phosphorus (2.5-4.5) mg/dL Ferritin (10.0-291.0) ng/mL AST (14-36) U/L ALT (4-34) U/L Alkaline Phosphatase (38-126) U/L Lactate Dehydrogenase (313-618) U/L Creatine Kinase (30-135) U/L Troponin I 32.000 H* 24.200 H* (0.000-0.034) ng/mL C-Reactive Protein (<10.0) mg/L Total Protein (6.3-8.2) g/dL Albumin (3.5-5.0) g/dL 01/29/20 01/29/20 Range/Units 11:00 12:05 RBC (3.80-5.40) m/uL Hgb (11.4-16.0) gm/dL MCV (80.0-100.0) fL MCHC (31.0-37.0) g/dL RDW (11.5-15.5) % PT (9.0-12.0) sec INR (<1.2) APTT (22.0-30.0) sec VBG pH (7.31-7.41) VBG pCO2 (37-51) mmHg VBG HCO3 (24-28) mmol/L BUN (7-17) mg/dL Creatinine (0.52-1.04) mg/dL Glucose (74-99) mg/dL Phosphorus (2.5-4.5) mg/dL Ferritin (10.0-291.0) ng/mL AST (14-36) U/L ALT (4-34) U/L Alkaline Phosphatase (38-126) U/L Lactate Dehydrogenase (313-618) U/L Creatine Kinase (30-135) U/L Troponin I 17.700 H* 17.000 H* (0.000-0.034) ng/mL C-Reactive Protein (<10.0) mg/L Total Protein (6.3-8.2) g/dL Albumin (3.5-5.0) g/dL US - abdomen: report reviewed (Ultrasound of the abdomen with findings of prior cholecystectomy, homogeneous liver and normal CBD) Assessment and Plan (1) Elevated liver enzymes Narrative/Plan: 64-year-old female with multiple medical comorbidities currently being seen for a non-ST elevation VT and pleural effusion. GI was consulted for elevation in liver enzymes. History taken from the patient and her bedside and denied any history of chronic liver disease, cirrhosis, heavy alcohol use, prior viral hepatitis with unknown family history is a patient was adopted. Unknown etiology of elevated liver enzymes, suspicion is that they are likely elevated due to hypoperfusion, cannot rule out underlying fatty liver disease which is exacerbating the situation or medication effect. Current Visit: Yes Status: Acute Code(s): R74.8 - ABNORMAL LEVELS OF OTHER SERUM ENZYMES SNOMED Code(s): 875838044 (2) NSTEMI (non-ST elevated myocardial infarction) Current Visit: Yes Status: Acute Code(s): I21.4 - NON-ST ELEVATION (NSTEMI) MYOCARDIAL INFARCTION SNOMED Code(s): 27309775 Plan: Supportive care Okay for diet as tolerated Continue other medical management Corporate Travel Agent service and cardiology consulted to see the patient Continue to monitor LFTs, if they do not improve full liver serology will be ordered, however suspicion is that they will trend down with optimization of other medications and cardiac function Ultrasound of the abdomen reviewed Thank you for allowing us to participate in the care of the patient we will continue to follow
--- NOTE | 2020-01-30 13:18 | P.PN ---
Subjective This is a pleasant 64-year-old female past medical history significant for diabetes mellitus, chronic kidney disease, recent myocardial infarction, hypertension and systolic heart failure. She is seen and examined sitting up in bed in no acute distress. She is currently maintained on heparin infusion and Lasix drip. Echocardiogram reveals severely impaired LV systolic function with global hypokinesia of the LV with ejection fraction 20-25%, moderate to severe aortic stenosis, mild mitral regurgitation, mild tricuspid regurgitation and a small generalized pericardial effusion. Laboratory data reviewed, WBC 3.4, hemoglobin 9.4, platelets 141, sodium 3.8, creatinine 2.42, AST 191, ALT 558, alkaline phosphatase 234, LDL 51 and HDL 27. Blood pressure 140/63 heart rate 76 afebrile maintaining oxygen saturation on nasal cannula. GENERAL: Well-appearing, well-nourished and in no acute distress. NECK: Supple without JVD or thyromegaly. LUNGS: Breath sounds clear to auscultation bilaterally. Respiration equal and unlabored. No wheezes, rales or rhonchi. Diminished bilaterally. HEART: Regular rate and rhythm with systolic ejection murmur at the base, no rubs or gallops. S1 and S2 heard. EXTREMITIES: Normal range of motion, no edema. No clubbing or cyanosis. Peripheral pulses intact. ASSESSMENT Subacute non-ST elevated myocardial infarction Acute on chronic systolic heart failure Diabetes mellitus Transaminitis Hypertension Chronic kidney disease Myocardial infarction in November treated conservatively per the PLAN Continue current medical regimen. Overall prognosis remains guarded. Nurse Practitioner note has been reviewed, I agree with a documented findings and plan of care. Patient was seen and examined. Objective - Vital Signs Vital signs: Vital Signs Temp 99.0 F 01/30/20 12:00 Pulse 76 01/30/20 12:00 Resp 18 01/30/20 12:00 BP 140/63 01/30/20 12:00 Pulse Ox 98 01/30/20 12:00 Intake & Output 01/29/20 01/30/20 01/30/20 18:59 06:59 18:59 Intake Total 203.863 100 Output Total 400 300 Balance -196.137 -200 Weight 119.5 kg Intake: Intake, IV Titration 203.863 100 Amount Furosemide 100 mg In 65.5 100 Sodium Chloride 0.9% 90 ml @ 10 MG/HR 10 mls/hr IV .Q10H [facility] Rx#: [id number] Heparin Sod,Pork in 0.45% 138.363 NaCl 25,000 unit In 0.45 % NaCl 1 250ml.bag @ 9.7 UNITS/KG/HR 10.032 mls/hr IV .Q24H [facility] Rx#: [id number] Oral 0 Output: Urine 400 300 Other: Voiding Method Indwelling Catheter Indwelling Catheter Indwelling Catheter # Bowel Movements 0 - Labs CBC & Chem 7: 01/30/20 10:05 01/30/20 10:05 Labs: Abnormal Lab Results - Last 24 Hours (Table) 01/29/20 01/29/20 01/29/20 Range/Units 11:00 12:05 17:42 WBC (3.8-10.6) k/uL RBC (3.80-5.40) m/uL Hgb (11.4-16.0) gm/dL Hct (34.0-46.0) % MCV (80.0-100.0) fL MCHC (31.0-37.0) g/dL RDW (11.5-15.5) % Macrocytosis APTT (22.0-30.0) sec BUN (7-17) mg/dL Creatinine (0.52-1.04) mg/dL Glucose (74-99) mg/dL POC Glucose (mg/dL) 236 H (75-99) mg/dL AST (14-36) U/L ALT (4-34) U/L Alkaline Phosphatase (38-126) U/L Troponin I 17.700 H* 17.000 H* (0.000-0.034) ng/mL Total Protein (6.3-8.2) g/dL Albumin (3.5-5.0) g/dL HDL Cholesterol (40-60) mg/dL 01/29/20 01/29/20 01/30/20 Range/Units 19:02 20:21 01:56 WBC (3.8-10.6) k/uL RBC (3.80-5.40) m/uL Hgb (11.4-16.0) gm/dL Hct (34.0-46.0) % MCV (80.0-100.0) fL MCHC (31.0-37.0) g/dL RDW (11.5-15.5) % Macrocytosis APTT 83.0 H 57.5 H (22.0-30.0) sec BUN (7-17) mg/dL Creatinine (0.52-1.04) mg/dL Glucose (74-99) mg/dL POC Glucose (mg/dL) 292 H (75-99) mg/dL AST (14-36) U/L ALT (4-34) U/L Alkaline Phosphatase (38-126) U/L Troponin I (0.000-0.034) ng/mL Total Protein (6.3-8.2) g/dL Albumin (3.5-5.0) g/dL HDL Cholesterol (40-60) mg/dL 01/30/20 01/30/20 01/30/20 Range/Units 06:09 10:05 10:05 WBC 3.4 L (3.8-10.6) k/uL RBC 3.11 L (3.80-5.40) m/uL Hgb 9.4 L (11.4-16.0) gm/dL Hct 32.2 L (34.0-46.0) % MCV 103.6 H (80.0-100.0) fL MCHC 29.2 L (31.0-37.0) g/dL RDW 19.1 H (11.5-15.5) % Macrocytosis Marked A APTT (22.0-30.0) sec BUN 103 H* (7-17) mg/dL Creatinine 2.42 H (0.52-1.04) mg/dL Glucose 288 H (74-99) mg/dL POC Glucose (mg/dL) 278 H (75-99) mg/dL AST 191 H (14-36) U/L ALT 558 H (4-34) U/L Alkaline Phosphatase 234 H (38-126) U/L Troponin I (0.000-0.034) ng/mL Total Protein 5.1 L (6.3-8.2) g/dL Albumin 2.6 L (3.5-5.0) g/dL HDL Cholesterol 27 L (40-60) mg/dL 01/30/20 Range/Units 11:38 WBC (3.8-10.6) k/uL RBC (3.80-5.40) m/uL Hgb (11.4-16.0) gm/dL Hct (34.0-46.0) % MCV (80.0-100.0) fL MCHC (31.0-37.0) g/dL RDW (11.5-15.5) % Macrocytosis APTT (22.0-30.0) sec BUN (7-17) mg/dL Creatinine (0.52-1.04) mg/dL Glucose (74-99) mg/dL POC Glucose (mg/dL) 297 H (75-99) mg/dL AST (14-36) U/L ALT (4-34) U/L Alkaline Phosphatase (38-126) U/L Troponin I (0.000-0.034) ng/mL Total Protein (6.3-8.2) g/dL Albumin (3.5-5.0) g/dL HDL Cholesterol (40-60) mg/dL Microbiology - Last 24 Hours (Table) 01/29/20 05:31 Blood Culture Gram Stain - Preliminary Blood Blood Culture - Preliminary Coagulase Negative Staph 01/29/20 05:31 Blood Culture - Final Blood
[2020-01-30 16:43] LABS: Glucose,Whole Blood 226 mg/dL (75-99)
--- NOTE | 2020-01-30 19:10 | P.PN ---
Subjective Progress Note Date: 01/30/20 Principal diagnosis: Elevated liver enzymes, NSTEMI Patient is seen lying in bed no abdominal pain, nausea or vomiting. Liver enzymes much improved today. No signs or symptoms of GI bleeding. Objective - Vital Signs Vital signs: Vital Signs Temp 99.0 F 01/30/20 12:00 Pulse 76 01/30/20 12:00 Resp 18 01/30/20 12:00 BP 140/63 01/30/20 12:00 Pulse Ox 98 01/30/20 12:00 Intake & Output 01/29/20 01/30/20 01/30/20 18:59 06:59 18:59 Intake Total 203.863 100 Output Total 400 850 Balance -196.137 -750 Weight 119.5 kg Intake: Intake, IV Titration 203.863 100 Amount Furosemide 100 mg In 65.5 100 Sodium Chloride 0.9% 90 ml @ 10 MG/HR 10 mls/hr IV .Q10H [facility] Rx#: [id number] Heparin Sod,Pork in 0.45% 138.363 NaCl 25,000 unit In 0.45 % NaCl 1 250ml.bag @ 9.7 UNITS/KG/HR 10.032 mls/hr IV .Q24H [facility] Rx#: [id number] Oral 0 Output: Urine 400 850 Other: Voiding Method Indwelling Catheter Indwelling Catheter Indwelling Catheter # Bowel Movements 0 - Exam On physical examination, patient appears comfortable in no apparent distress. HEAD: Normocephalic, atraumatic. EYES: No scleral icterus. No conjunctival injection. MOUTH: No lesions, tongue midline. NECK: Trachea midline, no gross abnormalities. ABDOMEN: Soft, obese and nontender to palpation. Bowel sounds are positive. No organomegaly. No guarding or rigidity. EXTREMITIES: No pedal edema. SKIN: No rashes, no jaundice. NEUROLOGIC: Alert and oriented to person. No focal deficits. - Labs CBC & Chem 7: 01/30/20 10:05 01/30/20 10:05 Labs: Abnormal Lab Results - Last 24 Hours (Table) 01/29/20 01/29/20 01/29/20 Range/Units 17:42 19:02 20:21 WBC (3.8-10.6) k/uL RBC (3.80-5.40) m/uL Hgb (11.4-16.0) gm/dL Hct (34.0-46.0) % MCV (80.0-100.0) fL MCHC (31.0-37.0) g/dL RDW (11.5-15.5) % Lymphocytes # (1.0-4.8) k/uL Macrocytosis APTT 83.0 H (22.0-30.0) sec BUN (7-17) mg/dL Creatinine (0.52-1.04) mg/dL Glucose (74-99) mg/dL POC Glucose (mg/dL) 236 H 292 H (75-99) mg/dL AST (14-36) U/L ALT (4-34) U/L Alkaline Phosphatase (38-126) U/L Total Protein (6.3-8.2) g/dL Albumin (3.5-5.0) g/dL HDL Cholesterol (40-60) mg/dL 01/30/20 01/30/20 01/30/20 Range/Units 01:56 06:09 10:05 WBC (3.8-10.6) k/uL RBC (3.80-5.40) m/uL Hgb (11.4-16.0) gm/dL Hct (34.0-46.0) % MCV (80.0-100.0) fL MCHC (31.0-37.0) g/dL RDW (11.5-15.5) % Lymphocytes # (1.0-4.8) k/uL Macrocytosis APTT 57.5 H (22.0-30.0) sec BUN 103 H* (7-17) mg/dL Creatinine 2.42 H (0.52-1.04) mg/dL Glucose 288 H (74-99) mg/dL POC Glucose (mg/dL) 278 H (75-99) mg/dL AST 191 H (14-36) U/L ALT 558 H (4-34) U/L Alkaline Phosphatase 234 H (38-126) U/L Total Protein 5.1 L (6.3-8.2) g/dL Albumin 2.6 L (3.5-5.0) g/dL HDL Cholesterol 27 L (40-60) mg/dL 01/30/20 01/30/20 Range/Units 10:05 11:38 WBC 3.4 L (3.8-10.6) k/uL RBC 3.11 L (3.80-5.40) m/uL Hgb 9.4 L (11.4-16.0) gm/dL Hct 32.2 L (34.0-46.0) % MCV 103.6 H (80.0-100.0) fL MCHC 29.2 L (31.0-37.0) g/dL RDW 19.1 H (11.5-15.5) % Lymphocytes # 0.5 L (1.0-4.8) k/uL Macrocytosis Marked A APTT (22.0-30.0) sec BUN (7-17) mg/dL Creatinine (0.52-1.04) mg/dL Glucose (74-99) mg/dL POC Glucose (mg/dL) 297 H (75-99) mg/dL AST (14-36) U/L ALT (4-34) U/L Alkaline Phosphatase (38-126) U/L Total Protein (6.3-8.2) g/dL Albumin (3.5-5.0) g/dL HDL Cholesterol (40-60) mg/dL Microbiology - Last 24 Hours (Table) 01/29/20 05:31 Blood Culture Gram Stain - Preliminary Blood Blood Culture - Preliminary Coagulase Negative Staph 01/29/20 05:31 Blood Culture - Final Blood Assessment and Plan (1) Elevated liver enzymes Narrative/Plan: 64-year-old female with multiple medical comorbidities currently being seen for a non-ST elevation ID and pleural effusion. GI was consulted for elevation in liver enzymes. History taken from the patient and her bedside and denied any history of chronic liver disease, cirrhosis, heavy alcohol use, prior viral hepatitis with unknown family history is a patient was adopted. Unknown etiology of elevated liver enzymes, suspicion is that they are likely elevated due to hypoperfusion, cannot rule out underlying fatty liver disease which is exacerbating the situation or medication effect. Liver enzymes much improved today. Current Visit: Yes Status: Acute Code(s): R74.8 - ABNORMAL LEVELS OF OTHER SERUM ENZYMES SNOMED Code(s): 388070242 (2) NSTEMI (non-ST elevated myocardial infarction) Current Visit: Yes Status: Acute Code(s): I21.4 - NON-ST ELEVATION (NSTEMI) MYOCARDIAL INFARCTION SNOMED Code(s): 30592597 Plan: Supportive care Okay for diet as tolerated Continue other medical management Stripper Machine Operator service and cardiology consulted to see the patient Continue to monitor LFTs, which have improved since today, will hold off on liver serology at this time Ultrasound of the abdomen reviewed Thank you for allowing us to participate in the care of the patient, the GI service will stand by, please call us back with any questions or concerns
--- NOTE | 2020-01-30 19:45 | P.PN ---
Subjective Progress Note Date: 01/30/20 (delayed charting seen at 1020) Principal diagnosis: yellowing of skin Patient is a 64-year-old female with a history of chronic kidney disease, diabetes mellitus type 2, liver disease, and congestive heart failure who presented from an outside facility after being transferred from her extended care facility. There she was noted to have a rapid heart rate, elevated troponin, transaminitis, and renal failure. Of note the patient was recently hospitalized in [facility] for approximately 3 weeks. On arrival here she was diagnosed with non-STEMI and case was discussed with Dr. Dickerson with plans for conservative management and IV heparin. She was also noted to have acute on chr onic systolic congestive heart failure and was started on a Lasix drip. She was found have a large left pleural effusion and pulmonary was consulted. Patient and spouse declined repeat thoracentesis that she recently had one without much improvement. She underwent an echocardiogram which showed an ejection fraction of 20-25% with severe calcification and decreased excursion of the aortic valve systolic moderate to severe aortic stenosis. She underwent an abdominal ultrasound which was unable to visualize the sling of the left kidney, right kidney is no evidence of hydronephrosis, liver with no obvious masses. She was also noted to have acute hepatitis felt likely to be secondary to liver stasis from congestive heart failure. Patient seen and examined at bedside. She reports feeling tired and short of breath. She denies any overt chest pain. Denies any nausea, vomiting, or diarr hea. General: Ill appearing, mild distress, appears older than stated age, obese Derm: warm, dry Head: atraumatic, normocephalic, symmetric Eyes: EOMI, no lid lag, anicteric sclera Mouth: no lip lesion, mucus membranes moist Cardiovascular: S1S2 reg, no murmur, positive posterior tibial pulse bilateral, Lungs: Absent breath sounds on the left, no accessory muscle use, 3 word conversational dyspnea Abdominal: soft, nontender to palpation, no guarding, no appreciable organomegaly Ext: no gross muscle atrophy, 3+ lower extremity edema, no contractures Neuro: CN II-XI grossly intact, no focal neuro deficits Psych: Alert, oriented, appropriate affect Acute systolic congestive heart failure with ejection fraction 20-25% and severe aortic stenosis. Large left pleural effusion -Cardiology and pulmonary recommendations appreciated -Continue with Lasix drip, hold oral torseide -Strict I's and O's, daily weight - conitnue BB, allergic to ACEI Gram-positive bacteremia -Continue with vancomycin -Could possibly be related to a contaminant versus true infection with her recent prolonged hospitalization -Await repeat blood cultures FORREST vs CKD with unknown baseline -Attempt to obtain outside records -Continue with Lasix drip -Strict I's and O's -Follow urine output -Consult nephrology Anemia -Unknown baseline, but on procrit which infers that anemia is chronic -CBC -No overt signs or symptoms of bleeding DM 2 - hold 70/30 as not eating - SSI - Follow BS - Poor prognosis will not check A1C Non-ST segment elevated myocardial infarction - ASA, heparin gtt will onitor closely with baseline INR 3.3 - no plans for intervention at this time. Atrial fibrillation - Amiodarone - on ASA only at baseline Transaminitis suspect secondary to hypoperfusion from congestive heart failure, coagulopathy - GI recs appreciated - hold statin - improving - follow liver enzymes - follow INR Hypertension, controlled - continue metoprolol, follow BP Obesity with BMI 45.2 - Diuresis for true weight - outpatient structured weight loss attempt to obtain records from [place]. DVT prophylaxis: heparin gtt Discussed with: patient, nursing Anticipated discharge: undetermined Anticipated discharge place: undetermined A total of 45 minutes was spent on the care of this complex patient more than 50% of the time was spent in counseling and care coordination. Objective - Vital Signs Vital signs: Vital Signs Temp 98.5 F 01/30/20 16:00 Pulse 69 01/30/20 16:00 Resp 18 01/30/20 16:00 BP 135/60 01/30/20 16:00 Pulse Ox 98 01/30/20 16:00 Intake & Output 01/30/20 01/30/20 01/31/20 06:59 18:59 06:59 Intake Total 203.863 259.929 Output Total 400 850 Balance -196.137 -590.071 Weight 119.5 kg Intake: Intake, IV Titration 203.863 259.929 Amount Furosemide 100 mg In 65.5 173 Sodium Chloride 0.9% 90 ml @ 10 MG/HR 10 mls/hr IV .Q10H [facility] Rx#: [id number] Heparin Sod,Pork in 0.45% 138.363 86.929 NaCl 25,000 unit In 0.45 % NaCl 1 250ml.bag @ 9.7 UNITS/KG/HR 10.032 mls/hr IV .Q24H [facility] Rx#: [id number] Oral 0 Output: Urine 400 850 Other: Voiding Method Indwelling Catheter Indwelling Catheter # Bowel Movements 0 - Labs CBC & Chem 7: 01/30/20 10:05 01/30/20 10:05 Labs: Abnormal Lab Results - Last 24 Hours (Table) 01/29/20 01/29/20 01/30/20 Range/Units 19:02 20:21 01:56 WBC (3.8-10.6) k/uL RBC (3.80-5.40) m/uL Hgb (11.4-16.0) gm/dL Hct (34.0-46.0) % MCV (80.0-100.0) fL MCHC (31.0-37.0) g/dL RDW (11.5-15.5) % Lymphocytes # (1.0-4.8) k/uL Macrocytosis APTT 83.0 H 57.5 H (22.0-30.0) sec BUN (7-17) mg/dL Creatinine (0.52-1.04) mg/dL Glucose (74-99) mg/dL POC Glucose (mg/dL) 292 H (75-99) mg/dL AST (14-36) U/L ALT (4-34) U/L Alkaline Phosphatase (38-126) U/L Total Protein (6.3-8.2) g/dL Albumin (3.5-5.0) g/dL HDL Cholesterol (40-60) mg/dL 01/30/20 01/30/20 01/30/20 Range/Units 06:09 10:05 10:05 WBC 3.4 L (3.8-10.6) k/uL RBC 3.11 L (3.80-5.40) m/uL Hgb 9.4 L (11.4-16.0) gm/dL Hct 32.2 L (34.0-46.0) % MCV 103.6 H (80.0-100.0) fL MCHC 29.2 L (31.0-37.0) g/dL RDW 19.1 H (11.5-15.5) % Lymphocytes # 0.5 L (1.0-4.8) k/uL Macrocytosis Marked A APTT (22.0-30.0) sec BUN 103 H* (7-17) mg/dL Creatinine 2.42 H (0.52-1.04) mg/dL Glucose 288 H (74-99) mg/dL POC Glucose (mg/dL) 278 H (75-99) mg/dL AST 191 H (14-36) U/L ALT 558 H (4-34) U/L Alkaline Phosphatase 234 H (38-126) U/L Total Protein 5.1 L (6.3-8.2) g/dL Albumin 2.6 L (3.5-5.0) g/dL HDL Cholesterol 27 L (40-60) mg/dL 01/30/20 01/30/20 Range/Units 11:38 16:42 WBC (3.8-10.6) k/uL RBC (3.80-5.40) m/uL Hgb (11.4-16.0) gm/dL Hct (34.0-46.0) % MCV (80.0-100.0) fL MCHC (31.0-37.0) g/dL RDW (11.5-15.5) % Lymphocytes # (1.0-4.8) k/uL Macrocytosis APTT (22.0-30.0) sec BUN (7-17) mg/dL Creatinine (0.52-1.04) mg/dL Glucose (74-99) mg/dL POC Glucose (mg/dL) 297 H 226 H (75-99) mg/dL AST (14-36) U/L ALT (4-34) U/L Alkaline Phosphatase (38-126) U/L Total Protein (6.3-8.2) g/dL Albumin (3.5-5.0) g/dL HDL Cholesterol (40-60) mg/dL Microbiology - Last 24 Hours (Table) 01/29/20 05:31 Blood Culture Gram Stain - Preliminary Blood Blood Culture - Preliminary Coagulase Negative Staph 01/29/20 05:31 Blood Culture - Final Blood
[2020-01-30 20:42] LABS: Hepatitis A Antibody IgM Non-Reactive (Non-Reactive); Hepatitis B Core IgM Non-Reactive (Non-Reactive); Hepatitis B Surface Antigen Non-Reactive (Non-Reactive); Hepatitis C IgG Antibody Non-Reactive (Non-Reactive)
[2020-01-30 21:16] LABS: Glucose,Whole Blood 193 mg/dL (75-99)
[2020-01-31] MEDS: NITROGLYCERIN OINT 1 INCH/GM PACKET TOPICAL SCH ×5 (00:08→23:06)
[2020-01-31] MEDS: FUROSEMIDE 100 MG in SODIUM CHLORIDE 0.9% 90 ML IV SCH ×2 (03:24→13:47)
[2020-01-31] MEDS: INSULIN ASPART (NovoLOG) 100 UNIT/ML VIAL SQ SCH ×4 (06:39→21:14)
[2020-01-31] MEDS: HEPARIN SOD,PORK IN 0.45% NACL 25,000 UNIT in 0.45% NACL 1 250ML.BAG IV SCH (06:46)
[2020-01-31 06:53] LABS: Glucose,Whole Blood 216 mg/dL (75-99)
[2020-01-31 08:24] LABS: Anisocytosis Slight; Basophils % (A) 0 %; Eosinophils % (A) 0 %; HCT 32.6 % (34.0-46.0); HGB 9.7 gm/dL (11.4-16.0); Hypochromasia Marked; Lymphocytes # (A) 0.6 k/uL (1.0-4.8); Lymphocytes % (A) 9 %; MCH 30.4 pg (25.0-35.0); MCHC 29.7 g/dL (31.0-37.0); MCV 102.3 fL (80.0-100.0); Macrocytosis Moderate; Mean Platelet Volume 7.7; Monocytes # (A) 0.4 k/uL (0-1.0); Monocytes % (A) 7 %; Neutrophils # (A) 5.4 k/uL (1.3-7.7); Neutrophils % (A) 83 %; Platelet Count 406 k/uL (150-450); RBC 3.19 m/uL (3.80-5.40); RDW 18.5 % (11.5-15.5); WBC 6.6 k/uL (3.8-10.6)
[2020-01-31 08:31] LABS: Albumin 2.5 g/dL (3.5-5.0); Calcium 8.8 mg/dL (8.4-10.2); Magnesium 2.1 mg/dL (1.6-2.3); Phosphorus 6.9 mg/dL (2.5-4.5); Potassium 3.7 mmol/L (3.5-5.1); Total Bilirubin 0.5 mg/dL (0.2-1.3); Total Protein 5.1 g/dL (6.3-8.2)
[2020-01-31] MEDS ORDERED: VANCOMYCIN 1,750 MG in SODIUM CHLORIDE 0.9% 500 ML 500 ML IVPB ONE (09:00)
[2020-01-31] MEDS: ASPIRIN 81 MG PO SCH (10:10)
[2020-01-31] MEDS: VENLAFAXINE HCL ER 37.5 MG CAP PO SCH (10:10)
[2020-01-31] MEDS: METOPROLOL TARTRATE 25 MG TAB PO SCH ×2 (10:10→21:14)
[2020-01-31] MEDS: PANTOPRAZOLE 40 MG TABLET PO SCH (10:10)
[2020-01-31] MEDS: CALCIUM CARB-VIT D 500MG-200UN 1 EACH TAB PO SCH (10:10)
[2020-01-31] MEDS: ASCORBIC ACID 500 MG TAB PO SCH (10:11)
[2020-01-31] MEDS: FERROUS SULFATE 325 MG TAB PO SCH (10:11)
--- NOTE | 2020-01-31 10:12 | P.PN ---
Subjective Progress Note Date: 01/31/20 This is a 64-year-old female patient and I've asked to see this patient because of a pleural effusion that was on the left side that was identified on the chest x-ray. This was a large left-sided pleural effusion. I came and saw the patient in the emergency department. He was supposed to go to the intensive care unit. I did a discussion with her was at the bedside. This patient has a very complicated medical history. The patient is legally blind and she has underlying diabetes mellitus. She has history of severe cardiomyopathy, CHF, valvular heart disease , previous coronary artery disease with myocardial infarctions and chronic atrial fibrillation. She has also chronic liver disease probably related to her CHF. The patient Was admitted to [facility] on multiple occasions regarding her medical problems. Most of her physicians are either in [facility] or [facility] in [facility]. She was sent to a half-way facility and she was referred to us for worsening shortness of breath. At a time of admission, the patient was found to be profoundly weak and debilitated. She does have diffuse anasarca with extensive edema in lower extremities bilaterally. Her troponin was positive. She denied having any chest pain. Nevertheless, her troponin max was found to be 32 and his progress and the downtrending is down to 17 for now. Meanwhile, the patient's proBNP level was 19,800. She had an acute kidney injury with a creatinine of 2.27 with a mean of 93. I think she does have an underlying chronic kidney disease. Her baseline creatinine is not known to me at this point in time. The patient had a bedside echocardiogram during this current hospital stay and the echo showed an ejection fraction of 20-25% and the patient had severe global hypokinesis of the LV. RV was not a critically visualized. The patient has a a possible bicuspid valve. There was severe calcification within the valves. There was also evidence of moderate to severe aortic taryn nosis. The degree of the aortic stenosis could not be estimated as the patient had a poor ejection fraction. Rest of the valves were adequate for now. There was a large left-sided pleural effusion that was also confirmed by a chest x-ray that was done at time of admission. Her cardiac rhythm was normal sinus. The patient had Q waves throughout the anterolateral leads indicating a previous RI. Ultrasound of the abdomen was essentially nonspecific. Upon further questioning, the patient states that she has received a recent thoracentesis of the left lung that was done in [facility] and the procedure itself did not give her much relief. Unfortunately, none of this information is available to me at a time of my evaluation. The patient herself is a poor historian. Some of the information is provided by the who is not detailed in his descriptions in terms of the patient's medical problems. For now, the patient is having some shortness of breath even at rest. She has orthopnea. She is profoundly fatigued and weak and lethargic and debilitated. LFTs were also abnormal with a AST of 1010 and ALT of 879. The patient's CRP was 13, LDH was 2081, ammonia level was less than 9. A routine coronavirus/Covid 19 nasal swab came back negative. Her serum albumin is at 2.9. Noted the patient's baseline performance and functional status is extremely poor. The patient is currently nonambulatory. She is 24 hour care and half-way facility. 01/30/2020, the patient's condition essentially unchanged compared to yesterday. Extremely lethargic and somnolent. She is currently on a Lasix drip at 10 mg an hour. No significant improvement in the volume status. She is also on IV heparin per cardiology. No worsening in her shortness of breath. The patient is currently on oxygen by nasal cannula at 4 L. No use of accessory muscle breathing. No signs of any significant respiratory distress. Follow-up chest x-ray is to follow today. 01/31/2020, the patient remains on Lasix drip at 10 mg an hour. He patient is in critical condition. Lethargic and somnolent. She is unresponsive. She has a Faust catheter in place. Urine output is also of over 100 mL an hour. Her net fluid balance has been negative and the patient is producing adequate amount of urine output. Exact measurements are not reliable. Meanwhile, the blood work shows remains stable with a creatinine of 2.42 and the BUN of 111. Rest of the electrodes are within normal limits. She is getting slightly alkalotic with a serum bicarb of 27. Her liver function tests continue to improve. She is on 4 L of oxygen by nasal cannula. Chest x-ray still showing complete opacification of the left lung with a left-sided pleural effusion. She is on IV heparin. Coagulation profile from today shows a PTT of 73.5. Objective - Vital Signs Vital signs: Vital Signs Temp 98.6 F 01/31/20 03:51 Pulse 68 01/31/20 03:51 Resp 18 01/31/20 03:51 BP 141/62 01/31/20 03:51 Pulse Ox 100 01/31/20 03:51 Intake & Output 01/30/20 01/31/20 01/31/20 18:59 06:59 18:59 Intake Total 259.929 194.571 Output Total 850 450 700 Balance -590.071 -255.429 -700 Weight 114.5 kg Intake: Intake, IV Titration 259.929 194.571 Amount Furosemide 100 mg In 173 88 Sodium Chloride 0.9% 90 ml @ 10 MG/HR 10 mls/hr IV .Q10H [facility] Rx#: [id number] Heparin Sod,Pork in 0.45% 86.929 106.571 NaCl 25,000 unit In 0.45 % NaCl 1 250ml.bag @ 9.7 UNITS/KG/HR 10.032 mls/hr IV .Q24H [facility] Rx#: [id number] Output: Urine 850 450 700 Other: Voiding Method Indwelling Catheter Indwelling Catheter # Bowel Movements 0 - Exam The patient is legally blind. She is able to communicate patient is very much lethargic and somnolent. She is arousable. She can state few sentences. She is nonambulatory. She is extremely weak. Head exam was generally normal. There was no scleral icterus or corneal arcus. Mucous membranes were moist. Neck was supple and with jugular venous distension, no thyromegaly, or carotid bruits. Carotids were easily palpable bilaterally. There was no adenopathy. lung sounds are absent on the left compared to right. There is consistent with a pleural effusion on the left. There is also dullness to percussion. Heart sounds are irregular and there is a systolic ejection murmur grade 3/6 heard throughout the precordium. Abdomen is obese soft nontender. No ascites. No direct tenderness 1 tensile guarding. There is anterior abdominal wall edema Extremities revealed extensive edema bilaterally with pitting +2. No cyanosis. No clubbing. Neurologically, the patient is somnolent and sleepy at arousable. There is global weakness in all 4 extremities. His motor weakness as the patient is unable to even raise her head off the bed. Reflexes symmetrical bilaterally. Tubes are equal and reactive to light. No facial asymmetry. She is arousable. She can communicate. She is alert and oriented 2-3. - Labs CBC & Chem 7: 01/31/20 07:44 01/31/20 07:44 Labs: Abnormal Lab Results - Last 24 Hours (Table) 01/30/20 01/30/20 01/30/20 Range/Units 10:05 10:05 11:38 WBC 3.4 L (3.8-10.6) k/uL RBC 3.11 L (3.80-5.40) m/uL Hgb 9.4 L (11.4-16.0) gm/dL Hct 32.2 L (34.0-46.0) % MCV 103.6 H (80.0-100.0) fL MCHC 29.2 L (31.0-37.0) g/dL RDW 19.1 H (11.5-15.5) % Lymphocytes # 0.5 L (1.0-4.8) k/uL Macrocytosis Marked A APTT (22.0-30.0) sec BUN 103 H* (7-17) mg/dL Creatinine 2.42 H (0.52-1.04) mg/dL Glucose 288 H (74-99) mg/dL POC Glucose (mg/dL) 297 H (75-99) mg/dL Phosphorus (2.5-4.5) mg/dL AST 191 H (14-36) U/L ALT 558 H (4-34) U/L Alkaline Phosphatase 234 H (38-126) U/L Total Protein 5.1 L (6.3-8.2) g/dL Albumin 2.6 L (3.5-5.0) g/dL HDL Cholesterol 27 L (40-60) mg/dL 01/30/20 01/30/20 01/30/20 Range/Units 16:42 20:53 23:49 WBC (3.8-10.6) k/uL RBC (3.80-5.40) m/uL Hgb (11.4-16.0) gm/dL Hct (34.0-46.0) % MCV (80.0-100.0) fL MCHC (31.0-37.0) g/dL RDW (11.5-15.5) % Lymphocytes # (1.0-4.8) k/uL Macrocytosis APTT 43.8 H (22.0-30.0) sec BUN (7-17) mg/dL Creatinine (0.52-1.04) mg/dL Glucose (74-99) mg/dL POC Glucose (mg/dL) 226 H 193 H (75-99) mg/dL Phosphorus (2.5-4.5) mg/dL AST (14-36) U/L ALT (4-34) U/L Alkaline Phosphatase (38-126) U/L Total Protein (6.3-8.2) g/dL Albumin (3.5-5.0) g/dL HDL Cholesterol (40-60) mg/dL 01/31/20 01/31/20 01/31/20 Range/Units 06:29 07:44 07:44 WBC (3.8-10.6) k/uL RBC 3.19 L (3.80-5.40) m/uL Hgb 9.7 L (11.4-16.0) gm/dL Hct 32.6 L (34.0-46.0) % MCV 102.3 H (80.0-100.0) fL MCHC 29.7 L (31.0-37.0) g/dL RDW 18.5 H (11.5-15.5) % Lymphocytes # 0.6 L (1.0-4.8) k/uL Macrocytosis APTT (22.0-30.0) sec BUN 111 H* (7-17) mg/dL Creatinine 2.42 H (0.52-1.04) mg/dL Glucose 204 H (74-99) mg/dL POC Glucose (mg/dL) 216 H (75-99) mg/dL Phosphorus 6.9 H (2.5-4.5) mg/dL AST 154 H (14-36) U/L ALT 491 H (4-34) U/L Alkaline Phosphatase 199 H (38-126) U/L Total Protein 5.1 L (6.3-8.2) g/dL Albumin 2.5 L (3.5-5.0) g/dL HDL Cholesterol (40-60) mg/dL 01/31/20 Range/Units 07:44 WBC (3.8-10.6) k/uL RBC (3.80-5.40) m/uL Hgb (11.4-16.0) gm/dL Hct (34.0-46.0) % MCV (80.0-100.0) fL MCHC (31.0-37.0) g/dL RDW (11.5-15.5) % Lymphocytes # (1.0-4.8) k/uL Macrocytosis APTT 73.5 H (22.0-30.0) sec BUN (7-17) mg/dL Creatinine (0.52-1.04) mg/dL Glucose (74-99) mg/dL POC Glucose (mg/dL) (75-99) mg/dL Phosphorus (2.5-4.5) mg/dL AST (14-36) U/L ALT (4-34) U/L Alkaline Phosphatase (38-126) U/L Total Protein (6.3-8.2) g/dL Albumin (3.5-5.0) g/dL HDL Cholesterol (40-60) mg/dL Microbiology - Last 24 Hours (Table) 01/29/20 05:31 Blood Culture Gram Stain - Preliminary Blood Blood Culture - Preliminary Coagulase Negative Staph Assessment and Plan Plan: 1 large left-sided pleural effusion, consistent with underlying CHF. The patient states that she has had previous thoracentesis and there has been reaccumulation of left-sided pleural effusion. He opted not to do a thoracentesis. We opted to go with diuresis. The patient is producing good amount of urine output while being on Lasix 10 mg an hour. Monitor the fluid balance. 2 chronic dyspnea secondary to CHF and a large left-sided pleural effusion, she is stable for now. Repeat chest x-rays to follow tomorrow. 3 acute non-ST segment elevation myocardial infarction with elevated troponins which are downtrending, currently on IV heparin 4 CHF with systolic heart failure due to an ejection fraction of 20-25% 5 severe aortic stenosis with a possibility of a bicuspid aortic valve. The exact and the severity of the valve stenosis cannot be established at this point in time based on low ejection fraction and poor windows an echocardiogram 6 history of atrial fibrillation, current rhythm is sinus 7 coronary artery disease with Q waves involving the anterior and the lateral leads consistent with previous RI 8 chronic kidney disease with possibility of an acute kidney injury on top of chronic kidney disease, renal function is stable 9 chronic liver disease, probably related to CHF and congestive hepatopathy. LF Ts are quite elevated. Correlation profile needs to be repeated. Ammonia level was nonelevated. The patient's LFTs are also improving. 10 diabetes mellitus 11 legal blindness secondary to diabetes mellitus 12 coagulopathy, likely secondary to chronic liver disease , currently on IV heparin and the patient would need a repeat coagulation profile. 13 coagulase-negative staph in the blood, likely contaminant plan The patient was seen in follow-up Clinically, the patient slightly improved compared to yesterday Continue Lasix drip 10 mg an hour and monitor the renal function and fluid b alance Repeat chest x-ray tomorrow PT/PTT and INR and consider stopping the IV heparin.. Discuss this with cardiology Unfortunately, the patient's condition is extremely debilitated. Would like to get records from the other hospital in terms of further details of her previous hospital admissions and hospital treatment. For now, the patient and her were not consistent thoracentesis. Apparently the patient had a recent thoracentesis this was done and make her bad ax and as such that has been rapidly examination of the left-sided pleural effusion. I'm recommending diuresis. I'm putting the patient related. A timely grams an hour. Cardiology has made recommendations for anticoagulation. This should be done cautiously knowing that the patient may be coagulopathic, chronic liver disease. I will leave it up to cardiology. The patient is extremely debilitated. I think her b aseline performance and functional status has been extremely poor and she may not be a candidate for any further cardiac interventions. We'll hold off on thoracentesis at this point in time special with an underlying coagulopathy. Continue medical management for now. Optimize her CHF. Continue diuresis. No need to come to the intensive care unit. I subsequent status of DO NOT RESUSCITATE and DO NOT INTUBATE with the and the patient and this discussion took place in the emergency department.
[2020-01-31 11:09] LABS: INR 3.2 (<1.2); Prothrombin Time 31.2 sec (9.0-12.0)
[2020-01-31 11:59] LABS: Glucose,Whole Blood 212 mg/dL (75-99)
--- NOTE | 2020-01-31 12:19 | P.PN ---
Subjective This is a pleasant 64-year-old female past medical history significant for diabetes mellitus, chronic kidney disease, recent myocardial infarction, hypertension and systolic heart failure. She is seen and examined sitting up in bed in no acute distress. She is conversing more today. She denies chest pain, shortness of breath, dizziness or palpitations. Blood pressure 141/62 heart rate 68 afebrile and maintaining oxygen saturation on nasal cannula. Laboratory data reviewed, WBC 6.6, hemoglobin 9.7, platelets 406, INR 3.2, sodium 141, potassium 3.7, creatinine 2.42, AST 154, ALT 491, alkaline phosphate 199 and magnesium 2.1. 24-hour urine output 1300 ml. GENERAL: Well-appearing, well-nourished and in no acute distress. NECK: Supple without JVD or thyromegaly. LUNGS: Breath sounds clear to auscultation bilaterally. Respiration equal and unlabored. No wheezes, rales or rhonchi. Diminished bilaterally. HEART: Regular rate and rhythm with systolic ejection murmur at the base, no rubs or gallops. S1 and S2 heard. EXTREMITIES: Normal range of motion, no edema. No clubbing or cyanosis. Peripheral pulses intact. ASSESSMENT Subacute non-ST elevated myocardial infarction Acute on chronic systolic heart failure Diabetes mellitus Transaminitis Gram positive bacteremia Hypertension Chronic kidney disease Myocardial infarction in November treated conservatively per the PLAN Discontinue heparin infusion. Liver enzymes are improving. Continue beta blockers. Unclear on a-fib history, the denies this as prior history and the patient herself is unclear. Telemetry reveals persistent sinus mechanism. Nurse Practitioner note has been reviewed, I agree with a documented findings and plan of care. Patient was seen and examined. Objective - Vital Signs Vital signs: Vital Signs Temp 98.6 F 01/31/20 03:51 Pulse 68 01/31/20 03:51 Resp 18 01/31/20 03:51 BP 141/62 01/31/20 03:51 Pulse Ox 100 01/31/20 03:51 Intake & Output 01/30/20 01/31/20 01/31/20 18:59 06:59 18:59 Intake Total 259.929 194.571 240 Output Total 850 450 700 Balance -590.071 -255.429 -460 Weight 114.5 kg Intake: Intake, IV Titration 259.929 194.571 Amount Furosemide 100 mg In 173 88 Sodium Chloride 0.9% 90 ml @ 10 MG/HR 10 mls/hr IV .Q10H [facility] Rx#: [id number] Heparin Sod,Pork in 0.45% 86.929 106.571 NaCl 25,000 unit In 0.45 % NaCl 1 250ml.bag @ 9.7 UNITS/KG/HR 10.032 mls/hr IV .Q24H [facility] Rx#: [id number] Oral 240 Output: Urine 850 450 700 Other: Voiding Method Indwelling Catheter Indwelling Catheter # Bowel Movements 0 - Labs CBC & Chem 7: 01/31/20 07:44 01/31/20 07:44 Labs: Abnormal Lab Results - Last 24 Hours (Table) 01/30/20 01/30/20 01/30/20 Range/Units 10:05 16:42 20:53 RBC (3.80-5.40) m/uL Hgb (11.4-16.0) gm/dL Hct (34.0-46.0) % MCV (80.0-100.0) fL MCHC (31.0-37.0) g/dL RDW (11.5-15.5) % Lymphocytes # 0.5 L (1.0-4.8) k/uL PT (9.0-12.0) sec INR (<1.2) APTT (22.0-30.0) sec BUN (7-17) mg/dL Creatinine (0.52-1.04) mg/dL Glucose (74-99) mg/dL POC Glucose (mg/dL) 226 H 193 H (75-99) mg/dL Phosphorus (2.5-4.5) mg/dL AST (14-36) U/L ALT (4-34) U/L Alkaline Phosphatase (38-126) U/L Total Protein (6.3-8.2) g/dL Albumin (3.5-5.0) g/dL 01/30/20 01/31/20 01/31/20 Range/Units 23:49 06:29 07:44 RBC 3.19 L (3.80-5.40) m/uL Hgb 9.7 L (11.4-16.0) gm/dL Hct 32.6 L (34.0-46.0) % MCV 102.3 H (80.0-100.0) fL MCHC 29.7 L (31.0-37.0) g/dL RDW 18.5 H (11.5-15.5) % Lymphocytes # 0.6 L (1.0-4.8) k/uL PT (9.0-12.0) sec INR (<1.2) APTT 43.8 H (22.0-30.0) sec BUN (7-17) mg/dL Creatinine (0.52-1.04) mg/dL Glucose (74-99) mg/dL POC Glucose (mg/dL) 216 H (75-99) mg/dL Phosphorus (2.5-4.5) mg/dL AST (14-36) U/L ALT (4-34) U/L Alkaline Phosphatase (38-126) U/L Total Protein (6.3-8.2) g/dL Albumin (3.5-5.0) g/dL 01/31/20 01/31/20 01/31/20 Range/Units 07:44 07:44 07:44 RBC (3.80-5.40) m/uL Hgb (11.4-16.0) gm/dL Hct (34.0-46.0) % MCV (80.0-100.0) fL MCHC (31.0-37.0) g/dL RDW (11.5-15.5) % Lymphocytes # (1.0-4.8) k/uL PT 31.2 H (9.0-12.0) sec INR 3.2 H (<1.2) APTT 73.5 H (22.0-30.0) sec BUN 111 H* (7-17) mg/dL Creatinine 2.42 H (0.52-1.04) mg/dL Glucose 204 H (74-99) mg/dL POC Glucose (mg/dL) (75-99) mg/dL Phosphorus 6.9 H (2.5-4.5) mg/dL AST 154 H (14-36) U/L ALT 491 H (4-34) U/L Alkaline Phosphatase 199 H (38-126) U/L Total Protein 5.1 L (6.3-8.2) g/dL Albumin 2.5 L (3.5-5.0) g/dL 01/31/20 Range/Units 11:57 RBC (3.80-5.40) m/uL Hgb (11.4-16.0) gm/dL Hct (34.0-46.0) % MCV (80.0-100.0) fL MCHC (31.0-37.0) g/dL RDW (11.5-15.5) % Lymphocytes # (1.0-4.8) k/uL PT (9.0-12.0) sec INR (<1.2) APTT (22.0-30.0) sec BUN (7-17) mg/dL Creatinine (0.52-1.04) mg/dL Glucose (74-99) mg/dL POC Glucose (mg/dL) 212 H (75-99) mg/dL Phosphorus (2.5-4.5) mg/dL AST (14-36) U/L ALT (4-34) U/L Alkaline Phosphatase (38-126) U/L Total Protein (6.3-8.2) g/dL Albumin (3.5-5.0) g/dL Microbiology - Last 24 Hours (Table) 01/30/20 10:05 Blood Culture - Preliminary Blood No Growth after 24 hours 01/30/20 10:05 Blood Culture - Preliminary Blood No Growth after 24 hours 01/29/20 05:31 Blood Culture Gram Stain - Preliminary Blood Blood Culture - Preliminary Coagulase Negative Staph
--- NOTE | 2020-01-31 13:11 | P.NPCON ---
History of Present Illness - Reason for Consult Consult date: 01/31/20 acute renal failure - Chief Complaint Shortness of breath - History of Present Illness 64-year-old female history of chronic kidney disease unknown baseline creatinine in our hospital system, recently discharged from [facility]. Nephrology was consulted for acute kidney injury. Currently on Lasix drip. Urine output was marginal yesterday, since morning she made 700 ML's of urine. BUN/c reatinine creeping since admission. She was 119 kg yesterday and today is 114 kg. Unclear about the weight on admission. No recent contrast studies. EF of 20%. No hypotensive episodes. Review of Systems Constitutional: Reports as per HPI Past Medical History Past Medical History: Atrial Fibrillation, GERD/Reflux, Hypertension, Renal Disease Additional Past Medical History / Comment(s): CHF History of Any Multi-Drug Resistant Organisms: None Reported Past Surgical History: No Surgical Hx Reported Past Psychological History: No Psychological Hx Reported Smoking Status: Never smoker Past Alcohol Use History: None Reported Past Drug Use History: None Reported Medications and Allergies Home Medications Medication Instructions Recorded Confirmed Type Acetaminophen Tab [Tylenol] 650 mg PO Q6H PRN MDD 3000MG 01/29/20 01/29/20 History Amiodarone [Cordarone] 200 mg PO DAILY 01/29/20 01/29/20 History Ascorbic Acid [Vitamin C] 500 mg PO DAILY 01/29/20 01/29/20 History Aspirin 81 mg PO DAILY 01/29/20 01/29/20 History Bisoprolol [Zebeta] 5 mg PO BID@0800,1600 01/29/20 01/29/20 History Calcium Carb-Vit D 500Mg-200Un 1 tab PO DAILY 01/29/20 01/29/20 History [Oscal 500+D] Epoetin Jeremias [Procrit] 10,000 unit SQ WE 01/29/20 01/29/20 History Ezetimibe [Zetia] 10 mg PO DAILY 01/29/20 01/29/20 History Ferrous Sulfate [Feosol] 325 mg PO DAILY 01/29/20 01/29/20 History Insuln Asp Prt/Insulin Aspart 13 unit SQ HS@1900 PRN 01/29/20 01/29/20 History [NovoLOG MIX 70-30 VIAL] Insuln Asp Prt/Insulin Aspart 20 unit SQ DAILY@0730 PRN 01/29/20 01/29/20 History [NovoLOG MIX 70-30 VIAL] Insuln Asp Prt/Insulin Aspart 30 unit SQ DAILY@1800 01/29/20 01/29/20 History [NovoLOG MIX 70-30 VIAL] Multivitamins, Thera [Multivitamin 1 tab PO DAILY 01/29/20 01/29/20 History (formulary)] Omeprazole [PriLOSEC] 20 mg PO DAILY 01/29/20 01/29/20 History Torsemide [Demadex] 50 mg PO DAILY 01/29/20 01/29/20 History Ubidecarenone [Co Q-10] 200 mg PO DAILY 01/29/20 01/29/20 History Venlafaxine HCl [Effexor XR] 37.5 mg PO DAILY 01/29/20 01/29/20 History Allergies Allergy/AdvReac Type Severity Reaction Status Date / Time HAVEN Inhibitors Allergy Unknown Verified 01/29/20 07:09 metformin Allergy Unknown Verified 01/29/20 07:09 simvastatin [From Zocor] Allergy Unknown Verified 01/29/20 07:09 Vimtbao-Phb-Ocg Reductase Allergy Unknown Verified 01/29/20 07:09 Inhibitor Physical Exam Vitals: Vital Signs Temp Pulse Resp BP Pulse Ox 01/31/20 07:50 69 16 162/65 99 01/31/20 03:51 98.6 F 68 18 141/62 100 01/31/20 02:00 65 16 01/31/20 00:00 65 16 135/64 100 01/30/20 20:00 97.1 F L 68 18 146/63 98 01/30/20 16:00 98.5 F 69 18 135/60 98 Intake and Output 01/30/20 01/31/20 01/31/20 22:59 06:59 14:59 Intake Total 159.929 194.571 240 Output Total 250 200 700 Balance -90.071 -5.429 -460 Intake: Intake, IV Titration 159.929 194.571 Amount Furosemide 100 mg In 73 88 Sodium Chloride 0.9% 90 ml @ 10 MG/HR 10 mls/hr IV .Q10H [facility] Rx#: [id number] Heparin Sod,Pork in 0.45% 86.929 106.571 NaCl 25,000 unit In 0.45 % NaCl 1 250ml.bag @ 9.7 UNITS/KG/HR 10.032 mls/hr IV .Q24H [facility] Rx#: [id number] Oral 240 Output: Urine 250 200 700 Other: Voiding Method Indwelling Catheter Indwelling Catheter Indwelling Catheter # Bowel Movements 0 Weight 114.5 kg No acute distress S1-S2 heard Decreased breath sounds Anasarca Faust catheter Results - Lab Results Most recent lab results Calcium 8.8 mg/dL (8.4-10.2) 01/31/20 07:44 Phosphorus 6.9 mg/dL (2.5-4.5) H 01/31/20 07:44 Magnesium 2.1 mg/dL (1.6-2.3) 01/31/20 07:44 01/31/20 07:44 01/31/20 07:44 Assessment and Plan Assessment: #1 acute kidney injury secondary to cardiorenal syndrome. Baseline creatinine unknown. #2 anasarca. #3 CHF with systolic dysfunction EF of 20%. #4 transaminitis secondary to congestive hepatopathy #5 metabolic alkalosis secondary to diuresis #6 left pleural effusion Plan: #1 currently on Lasix drip at 10 mg an hour. Continue at the same rate add Zaroxolyn 2.5 mg twice a day. #2 strict ins and outs. #3 check FeNa/FeUrea and urine analysis. Also check renal ultrasound for size. #4 goal net negative off 2-2.5 L per day 2 avoid FORREST #5 avoid nephrotoxic agents and hypotensive episodes.
[2020-01-31] MEDS: metOLazone 2.5 MG TAB PO SCH ×2 (13:31→21:14)
[2020-01-31 13:56] LABS: Creatinine,Urine Random 36.7 mg/dL
[2020-01-31 14:02] LABS: Hemoglobin A1C 5.8 % (4.0-6.0)
[2020-01-31 14:12] LABS: Amorphous Sediment,Urine Occasional /hpf; Appearance,Urine Cloudy (Clear); Bacteria,Urine Rare /hpf; Bilirubin,Urine Negative (Negative); Blood,Urine Small (Negative); Color,Urine Light Yellow; Glucose,Urine (UA) Negative (Negative); Hyaline Casts,Urine 13 /lpf (0-2); Ketones,Urine Negative (Negative); Leukocyte Esterase,Urine Moderate (Negative); Mucus,Urine Rare /hpf; Nitrite,Urine Negative (Negative); Protein,Urine Negative (Negative); RBC,Urine 5 /hpf (0-5); Squamous Epithelial Cell,Urine 1 /hpf (0-4); Urobilinogen,Urine <2.0 mg/dL (<2.0); WBC,Urine 5 /hpf (0-5)
--- NOTE | 2020-01-31 14:43 | US ---
EXAMINATION TYPE: US renals and bladder DATE OF EXAM: 01/31/2020 COMPARISON: NONE CLINICAL HISTORY: forrest. FORREST exam limited patient unable to roll left kidney not visualized. EXAM MEASUREMENTS: Right Kidney: 10.6 x 5.5 x 3.9 cm Left Kidney: Not visualized patient unable to roll. Right Kidney: No hydronephrosis or masses seen Left Kidney: Not visualized patient unable to roll. Bladder: Faust catheter in place. Bilateral Jets seen: No IMPRESSION: No evidence of right hydronephrosis. Left kidney not visualized, due to limited patient mobility.
[2020-01-31 16:28] LABS: Glucose,Whole Blood 208 mg/dL (75-99)
--- NOTE | 2020-01-31 19:36 | P.PN ---
Subjective Progress Note Date: 01/31/20 (delayed charting seen at 0950) Principal diagnosis: yellowing of skin Patient is a 64-year-old female with a history of chronic kidney disease, diabetes mellitus type 2, liver disease, and congestive heart failure who presented from an outside facility after being transferred from her extended care facility. There she was noted to have a rapid heart rate, elevated troponin, transaminitis, and renal failure. Of note the patient was recently hospitalized in [facility] for approximately 3 weeks. On arrival here she was diagnosed with non-STEMI and case was discussed with Dr. Dickerson with plans for conservative management and IV heparin. She was also noted to have acute on chr onic systolic congestive heart failure and was started on a Lasix drip. She was found have a large left pleural effusion and pulmonary was consulted. Patient and spouse declined repeat thoracentesis that she recently had one without much improvement. She underwent an echocardiogram which showed an ejection fraction of 20-25% with severe calcification and decreased excursion of the aortic valve systolic moderate to severe aortic stenosis. She underwent an abdominal ultrasound which was unable to visualize the sling of the left kidney, right kidney is no evidence of hydronephrosis, liver with no obvious masses. She was also noted to have acute hepatitis felt likely to be secondary to liver stasis from congestive heart failure. She was diuresising well on lasix gtt. Nephrology was consulted and started zaroxolyn. Records obtained from [facility]. She was admitted on 12/17 and discharged on 01/05. It appears that she had a CHF exacerbation, PNA, and sepsis with renal failure. She had A fib with RVR which required cardioversion X 2. She was discharged with Amio and coumadin. Her baseline Cr 2. She had an echo done there which showed EF of 40-45% and mild- mod at that time. Prior to November she was ambulating with assistance for vision but her strength and endurance were normal. Per the this has been like a horrible nightmare to watch over the last 6 weeks. Per was 197 pounds at the end of november, on admission was 261 pounds. Patient seen and examined at bedside. She is feeling slightly better today, breathing is a little better no nausea, no vomiting. General: Ill appearing, mild distress, appears older than stated age, obese Derm: warm, dry Head: atraumatic, normocephalic, symmetric Eyes: EOMI, no lid lag, anicteric sclera Mouth: no lip lesion, mucus membranes moist Cardiovascular: S1S2 reg, no murmur, positive posterior tibial pulse bilateral, Lungs: Absent breath sounds on the left, + accessory muscle use, no conversational dyspnea Abdominal: soft, nontender to palpation, no guarding, no appreciable organomegaly Ext: no gross muscle atrophy, 3+ lower extremity edema, no contractures Neuro: CN II-XI grossly intact, no focal neuro deficits Psych: Alert, oriented, appropriate affect Acute systolic congestive heart failure with ejection fraction 20-25% and severe aortic stenosis. Large left pleural effusion -Cardiology and pulmonary recommendations appreciated -Continue with Lasix drip, zaroxlyn started -Strict I's and O's, daily weight - conitnue BB, allergic to ACEI Gram-positive bacteremia, likely contaminant - await for blood cultures to be negative for 48 hours and then stop ABX -off vanco on rocephin -Could possibly be related to a contaminant versus true infection with her recent prolonged hospitalization -Await repeat blood cultures FORREST on CKD with baseline cr 2 -Continue with Lasix drip -Strict I's and O's -Follow urine output -nephro recs appreciated, Zaroxlyn added Anemia -Unknown baseline, but on procrit which infers that anemia is chronic -CBC -No overt signs or symptoms of bleeding DM 2 - hold 70/30 as not eating - SSI - Follow BS - Poor prognosis will not check A1C Non-ST segment elevated myocardial infarction - ASA, heparin gtt discontinued - no plans for intervention at this time. P. Atrial fibrillation - on Amiodarone at discharge from [place] - Hx of A fib with RVR last month requiring cardioversion X 2 - on ASA only at baseline - had been discharged on coumadin from [place] Transaminitis suspect secondary to hypoperfusion from congestive heart failure, coagulopathy - GI recs appreciated - hold statin - improving - follow liver enzymes - follow INR Hypertension, controlled - continue metoprolol, follow BP Obesity with BMI 45.2 - Diuresis for true weight - outpatient structured weight loss updated at length over the phone. DVT prophylaxis: heparin gtt Discussed with: patient, nursing, Anticipated discharge: 5-[address]: [facility] A total of 45 minutes was spent on the care of this complex patient more than 50 % of the time was spent in counseling and care coordination. Objective - Vital Signs Vital signs: Vital Signs Temp 98.0 F 01/31/20 11:55 Pulse 62 01/31/20 15:55 Resp 18 01/31/20 15:55 BP 161/67 01/31/20 15:55 Pulse Ox 98 01/31/20 15:55 Intake & Output 01/31/20 01/31/20 02/01/20 06:59 18:59 06:59 Intake Total 194.571 478 Output Total 450 1440 Balance -255.429 -962 Weight 114.5 kg Intake: Intake, IV Titration 194.571 100 Amount Furosemide 100 mg In 88 100 Sodium Chloride 0.9% 90 ml @ 10 MG/HR 10 mls/hr IV .Q10H [facility] Rx#: [id number] Heparin Sod,Pork in 0.45% 106.571 NaCl 25,000 unit In 0.45 % NaCl 1 250ml.bag @ 9.7 UNITS/KG/HR 10.032 mls/hr IV .Q24H [facility] Rx#: [id number] Oral 378 Output: Urine 450 1440 Other: Voiding Method Indwelling Catheter Indwelling Catheter # Bowel Movements 0 1 - Labs CBC & Chem 7: 01/31/20 07:44 01/31/20 07:44 Labs: Abnormal Lab Results - Last 24 Hours (Table) 01/30/20 01/30/20 01/31/20 Range/Units 20:53 23:49 06:29 RBC (3.80-5.40) m/uL Hgb (11.4-16.0) gm/dL Hct (34.0-46.0) % MCV (80.0-100.0) fL MCHC (31.0-37.0) g/dL RDW (11.5-15.5) % Lymphocytes # (1.0-4.8) k/uL PT (9.0-12.0) sec INR (<1.2) APTT 43.8 H (22.0-30.0) sec BUN (7-17) mg/dL Creatinine (0.52-1.04) mg/dL Glucose (74-99) mg/dL POC Glucose (mg/dL) 193 H 216 H (75-99) mg/dL Phosphorus (2.5-4.5) mg/dL AST (14-36) U/L ALT (4-34) U/L Alkaline Phosphatase (38-126) U/L Total Protein (6.3-8.2) g/dL Albumin (3.5-5.0) g/dL Urine Appearance (Clear) Urine Blood (Negative) Ur Leukocyte Esterase (Negative) Amorphous Sediment (None) /hpf Urine Bacteria (None) /hpf Hyaline Casts (0-2) /lpf Urine Mucus (None) /hpf U Random Total Protein (<12) mg/dL 01/31/20 01/31/20 01/31/20 Range/Units 07:44 07:44 07:44 RBC 3.19 L (3.80-5.40) m/uL Hgb 9.7 L (11.4-16.0) gm/dL Hct 32.6 L (34.0-46.0) % MCV 102.3 H (80.0-100.0) fL MCHC 29.7 L (31.0-37.0) g/dL RDW 18.5 H (11.5-15.5) % Lymphocytes # 0.6 L (1.0-4.8) k/uL PT (9.0-12.0) sec INR (<1.2) APTT 73.5 H (22.0-30.0) sec BUN 111 H* (7-17) mg/dL Creatinine 2.42 H (0.52-1.04) mg/dL Glucose 204 H (74-99) mg/dL POC Glucose (mg/dL) (75-99) mg/dL Phosphorus 6.9 H (2.5-4.5) mg/dL AST 154 H (14-36) U/L ALT 491 H (4-34) U/L Alkaline Phosphatase 199 H (38-126) U/L Total Protein 5.1 L (6.3-8.2) g/dL Albumin 2.5 L (3.5-5.0) g/dL Urine Appearance (Clear) Urine Blood (Negative) Ur Leukocyte Esterase (Negative) Amorphous Sediment (None) /hpf Urine Bacteria (None) /hpf Hyaline Casts (0-2) /lpf Urine Mucus (None) /hpf U Random Total Protein (<12) mg/dL 01/31/20 01/31/20 01/31/20 Range/Units 07:44 11:57 13:48 RBC (3.80-5.40) m/uL Hgb (11.4-16.0) gm/dL Hct (34.0-46.0) % MCV (80.0-100.0) fL MCHC (31.0-37.0) g/dL RDW (11.5-15.5) % Lymphocytes # (1.0-4.8) k/uL PT 31.2 H (9.0-12.0) sec INR 3.2 H (<1.2) APTT (22.0-30.0) sec BUN (7-17) mg/dL Creatinine (0.52-1.04) mg/dL Glucose (74-99) mg/dL POC Glucose (mg/dL) 212 H (75-99) mg/dL Phosphorus (2.5-4.5) mg/dL AST (14-36) U/L ALT (4-34) U/L Alkaline Phosphatase (38-126) U/L Total Protein (6.3-8.2) g/dL Albumin (3.5-5.0) g/dL Urine Appearance Cloudy H (Clear) Urine Blood Small H (Negative) Ur Leukocyte Esterase Moderate H (Negative) Amorphous Sediment Occasional H (None) /hpf Urine Bacteria Rare H (None) /hpf Hyaline Casts 13 H (0-2) /lpf Urine Mucus Rare H (None) /hpf U Random Total Protein (<12) mg/dL 01/31/20 01/31/20 Range/Units 13:48 16:25 RBC (3.80-5.40) m/uL Hgb (11.4-16.0) gm/dL Hct (34.0-46.0) % MCV (80.0-100.0) fL MCHC (31.0-37.0) g/dL RDW (11.5-15.5) % Lymphocytes # (1.0-4.8) k/uL PT (9.0-12.0) sec INR (<1.2) APTT (22.0-30.0) sec BUN (7-17) mg/dL Creatinine (0.52-1.04) mg/dL Glucose (74-99) mg/dL POC Glucose (mg/dL) 208 H (75-99) mg/dL Phosphorus (2.5-4.5) mg/dL AST (14-36) U/L ALT (4-34) U/L Alkaline Phosphatase (38-126) U/L Total Protein (6.3-8.2) g/dL Albumin (3.5-5.0) g/dL Urine Appearance (Clear) Urine Blood (Negative) Ur Leukocyte Esterase (Negative) Amorphous Sediment (None) /hpf Urine Bacteria (None) /hpf Hyaline Casts (0-2) /lpf Urine Mucus (None) /hpf U Random Total Protein 18 H (<12) mg/dL Microbiology - Last 24 Hours (Table) 01/30/20 10:05 Blood Culture - Preliminary Blood No Growth after 24 hours 01/30/20 10:05 Blood Culture - Preliminary Blood No Growth after 24 hours
[2020-01-31 21:01] LABS: Glucose,Whole Blood 132 mg/dL (75-99)
[2020-01-31 23:00] LABS: Urine Creatinine 36.3 mg/dL
[2020-02-01] MEDS: FUROSEMIDE 100 MG in SODIUM CHLORIDE 0.9% 90 ML IV SCH ×3 (03:59→21:05)
[2020-02-01 06:07] LABS: Glucose,Whole Blood 169 mg/dL (75-99)
[2020-02-01] MEDS: NITROGLYCERIN OINT 1 INCH/GM PACKET TOPICAL SCH ×4 (06:48→23:06)
[2020-02-01] MEDS: INSULIN ASPART (NovoLOG) 100 UNIT/ML VIAL SQ SCH ×4 (06:48→21:05)
[2020-02-01 07:17] LABS: Anisocytosis Slight; Basophils % (A) 0 %; Eosinophils # (A) 0.1 k/uL (0-0.7); Eosinophils % (A) 2 %; HCT 33.1 % (34.0-46.0); HGB 9.7 gm/dL (11.4-16.0); Hypochromasia Marked; Lymphocytes % (A) 11 %; MCH 29.8 pg (25.0-35.0); MCHC 29.3 g/dL (31.0-37.0); MCV 101.6 fL (80.0-100.0); Macrocytosis Moderate; Monocytes # (A) 0.5 k/uL (0-1.0); Monocytes % (A) 5 %; Neutrophils % (A) 81 %; Platelet Count 426 k/uL (150-450); RBC 3.26 m/uL (3.80-5.40); RDW 18.7 % (11.5-15.5); WBC 8.7 k/uL (3.8-10.6)
[2020-02-01 08:04] LABS: Albumin 2.5 g/dL (3.5-5.0); Magnesium 2.1 mg/dL (1.6-2.3); Potassium 4.3 mmol/L (3.5-5.1); Total Bilirubin 0.5 mg/dL (0.2-1.3)
[2020-02-01 08:09] LABS: Vancomycin,Random 24.5 ug/mL
--- NOTE | 2020-02-01 09:05 | XR ---
EXAMINATION TYPE: XR chest 1V DATE OF EXAM: 02/01/2020 COMPARISON: 01/30/2020 HISTORY: Shortness of breath TECHNIQUE: Single frontal view of the chest is obtained. FINDINGS: Persistent complete opacification left hemithorax. Limited inspiration. Heart is enlarged. No sizable pneumothorax. Subsegmental changes medial aspect right lung base. IMPRESSION: Stable x-ray with complete opacification of the left hemithorax.
[2020-02-01] MEDS: VENLAFAXINE HCL ER 37.5 MG CAP PO SCH (09:42)
[2020-02-01] MEDS: metOLazone 2.5 MG TAB PO SCH ×2 (09:42→21:05)
[2020-02-01] MEDS: PANTOPRAZOLE 40 MG TABLET PO SCH (09:42)
[2020-02-01] MEDS: METOPROLOL TARTRATE 25 MG TAB PO SCH ×2 (09:42→21:05)
[2020-02-01] MEDS: CALCIUM CARB-VIT D 500MG-200UN 1 EACH TAB PO SCH (09:43)
[2020-02-01] MEDS: ASCORBIC ACID 500 MG TAB PO SCH (09:43)
[2020-02-01] MEDS: FERROUS SULFATE 325 MG TAB PO SCH (09:43)
[2020-02-01] MEDS: ASPIRIN 81 MG PO SCH (09:45)
[2020-02-01 11:35] LABS: Glucose,Whole Blood 194 mg/dL (75-99)
--- NOTE | 2020-02-01 11:35 | P.PN ---
Subjective Patient is seen in follow-up for acute kidney injury. Renal function fairly stable. Urine output about 1400 mL overnight. Currently on Lasix drip and metolazone. Feels tired. Vital signs are stable. General: The patient appeared well nourished and normally developed. HEENT: Head exam is unremarkable. Neck is without jugular venous distension. LUNGS: Breath sounds decreased. HEART: Rate and Rhythm are regular. ABDOMEN: Soft, nontender. EXTREMITITES: 2+ edema. Objective - Vital Signs Vital signs: Vital Signs Temp 98.1 F 02/01/20 08:00 Pulse 78 02/01/20 08:00 Resp 20 02/01/20 08:00 BP 172/75 02/01/20 08:00 Pulse Ox 98 02/01/20 08:00 Intake & Output 01/31/20 02/01/20 02/01/20 18:59 06:59 18:59 Intake Total 478 100 250 Output Total 1440 1040 750 Balance -962 -940 -500 Weight 117.5 kg Intake: Intake, IV Titration 100 100 Amount Furosemide 100 mg In 100 100 Sodium Chloride 0.9% 90 ml @ 10 MG/HR 10 mls/hr IV .Q10H [facility] Rx#: [id number] Oral 378 250 Output: Urine 1440 1040 750 Other: Voiding Method Indwelling Catheter Indwelling Catheter Indwelling Catheter # Bowel Movements 1 - Labs CBC & Chem 7: 02/01/20 06:51 02/01/20 06:51 Labs: Abnormal Lab Results - Last 24 Hours (Table) 01/31/20 01/31/20 01/31/20 Range/Units 11:57 13:48 13:48 RBC (3.80-5.40) m/uL Hgb (11.4-16.0) gm/dL Hct (34.0-46.0) % MCV (80.0-100.0) fL MCHC (31.0-37.0) g/dL RDW (11.5-15.5) % Chloride (98-107) mmol/L BUN (7-17) mg/dL Creatinine (0.52-1.04) mg/dL Glucose (74-99) mg/dL POC Glucose (mg/dL) 212 H (75-99) mg/dL AST (14-36) U/L ALT (4-34) U/L Alkaline Phosphatase (38-126) U/L Total Protein (6.3-8.2) g/dL Albumin (3.5-5.0) g/dL Urine Appearance Cloudy H (Clear) Urine Blood Small H (Negative) Ur Leukocyte Esterase Moderate H (Negative) Amorphous Sediment Occasional H (None) /hpf Urine Bacteria Rare H (None) /hpf Hyaline Casts 13 H (0-2) /lpf Urine Mucus Rare H (None) /hpf Ur Random Microalbumin (0.0-1.9) mg/dL U Random Total Protein 18 H (<12) mg/dL Microalb/Creat Ratio (0-30) mg/g Creat 01/31/20 01/31/20 01/31/20 Range/Units 13:48 16:25 20:59 RBC (3.80-5.40) m/uL Hgb (11.4-16.0) gm/dL Hct (34.0-46.0) % MCV (80.0-100.0) fL MCHC (31.0-37.0) g/dL RDW (11.5-15.5) % Chloride (98-107) mmol/L BUN (7-17) mg/dL Creatinine (0.52-1.04) mg/dL Glucose (74-99) mg/dL POC Glucose (mg/dL) 208 H 132 H (75-99) mg/dL AST (14-36) U/L ALT (4-34) U/L Alkaline Phosphatase (38-126) U/L Total Protein (6.3-8.2) g/dL Albumin (3.5-5.0) g/dL Urine Appearance (Clear) Urine Blood (Negative) Ur Leukocyte Esterase (Negative) Amorphous Sediment (None) /hpf Urine Bacteria (None) /hpf Hyaline Casts (0-2) /lpf Urine Mucus (None) /hpf Ur Random Microalbumin 4.4 H (0.0-1.9) mg/dL U Random Total Protein (<12) mg/dL Microalb/Creat Ratio 121 H (0-30) mg/g Creat 02/01/20 02/01/20 02/01/20 Range/Units 06:01 06:51 06:51 RBC 3.26 L (3.80-5.40) m/uL Hgb 9.7 L (11.4-16.0) gm/dL Hct 33.1 L (34.0-46.0) % MCV 101.6 H (80.0-100.0) fL MCHC 29.3 L (31.0-37.0) g/dL RDW 18.7 H (11.5-15.5) % Chloride 108 H (98-107) mmol/L BUN 118 H* (7-17) mg/dL Creatinine 2.50 H (0.52-1.04) mg/dL Glucose 157 H (74-99) mg/dL POC Glucose (mg/dL) 169 H (75-99) mg/dL AST 108 H (14-36) U/L ALT 399 H (4-34) U/L Alkaline Phosphatase 179 H (38-126) U/L Total Protein 5.0 L (6.3-8.2) g/dL Albumin 2.5 L (3.5-5.0) g/dL Urine Appearance (Clear) Urine Blood (Negative) Ur Leukocyte Esterase (Negative) Amorphous Sediment (None) /hpf Urine Bacteria (None) /hpf Hyaline Casts (0-2) /lpf Urine Mucus (None) /hpf Ur Random Microalbumin (0.0-1.9) mg/dL U Random Total Protein (<12) mg/dL Microalb/Creat Ratio (0-30) mg/g Creat Microbiology - Last 24 Hours (Table) 01/29/20 05:31 Blood Culture Gram Stain - Final Blood Blood Culture - Final Staphylococcus epidermidis 01/30/20 10:05 Blood Culture - Preliminary Blood No Growth after 24 hours 01/30/20 10:05 Blood Culture - Preliminary Blood No Growth after 24 hours Assessment and Plan Plan: Assessment: 1. Acute kidney injury secondary to ATN secondary to cardiorenal syndrome. Creatinine 2.5 today. No proteinuria on UA. No hydronephrosis noted on kidney ultrasound. Left kidney not visualized. 2. Acute on chronic systolic CHF with ejection fraction of 20-25%. 3. Volume overload. 4. Diabetes mellitus. Plan: Increase Lasix drip to 15 mL an hour. Maintain metolazone. 1500 mL fluid restriction. Continue to monitor renal function and urine output.
--- NOTE | 2020-02-01 12:00 | P.PN ---
Subjective Progress Note Date: 02/01/20 HISTORY OF PRESENT ILLNESS: Patient examined this morning at the bedside. Patient denies chest pain or pressure. Denies shortness of breath. AST 108. ALT 399. She remains on a lasix drip. Creatinine 2.50. PHYSICAL EXAM: VITAL SIGNS: Reviewed. GENERAL: Well-developed in no acute distress. NECK: Supple. No JVD or thyromegaly LUNGS: Respirations even and unlabored. Lungs essentially clear to auscultation bilaterally. HEART: Regular rate and rhythm. S1 and S2 heard. EXTREMITIES: Normal range of motion. No clubbing or cyanosis. Peripheral pulses intact. 3+ bilateral lower extremity edema ASSESSMENT: Subacute non-ST elevated myocardial infarction Acute on chronic systolic heart failure Diabetes mellitus Transaminitis Hypertension Chronic kidney disease Myocardial infarction in November treated conservatively per the Paroxysmal atrial fibrillation with RVR, requiring cardioversion x 2, per records at [facility] from PLAN: Continue current cardiac medications Continue lasix drip per pulmonary Further recommendations pending patient course Nurse practitioner note has been reviewed by physician. Signing provider agrees with the documented findings, assessment, and plan of care. Objective - Vital Signs Vital signs: Vital Signs Temp 97.9 F 02/01/20 11:42 Pulse 80 02/01/20 11:42 Resp 20 02/01/20 11:42 BP 164/70 02/01/20 11:42 Pulse Ox 99 02/01/20 11:42 Intake & Output 01/31/20 02/01/20 02/01/20 18:59 06:59 18:59 Intake Total 478 100 250 Output Total 1440 1040 750 Balance -962 -940 -500 Weight 117.5 kg Intake: Intake, IV Titration 100 100 Amount Furosemide 100 mg In 100 100 Sodium Chloride 0.9% 90 ml @ 10 MG/HR 10 mls/hr IV .Q10H [facility] Rx#: [id number] Oral 378 250 Output: Urine 1440 1040 750 Other: Voiding Method Indwelling Catheter Indwelling Catheter Indwelling Catheter # Bowel Movements 1 - Labs CBC & Chem 7: 02/01/20 06:51 02/01/20 06:51 Labs: Abnormal Lab Results - Last 24 Hours (Table) 01/31/20 01/31/20 01/31/20 Range/Units 11:57 13:48 13:48 RBC (3.80-5.40) m/uL Hgb (11.4-16.0) gm/dL Hct (34.0-46.0) % MCV (80.0-100.0) fL MCHC (31.0-37.0) g/dL RDW (11.5-15.5) % Chloride (98-107) mmol/L BUN (7-17) mg/dL Creatinine (0.52-1.04) mg/dL Glucose (74-99) mg/dL POC Glucose (mg/dL) 212 H (75-99) mg/dL AST (14-36) U/L ALT (4-34) U/L Alkaline Phosphatase (38-126) U/L Total Protein (6.3-8.2) g/dL Albumin (3.5-5.0) g/dL Urine Appearance Cloudy H (Clear) Urine Blood Small H (Negative) Ur Leukocyte Esterase Moderate H (Negative) Amorphous Sediment Occasional H (None) /hpf Urine Bacteria Rare H (None) /hpf Hyaline Casts 13 H (0-2) /lpf Urine Mucus Rare H (None) /hpf Ur Random Microalbumin (0.0-1.9) mg/dL U Random Total Protein 18 H (<12) mg/dL Microalb/Creat Ratio (0-30) mg/g Creat 01/31/20 01/31/20 01/31/20 Range/Units 13:48 16:25 20:59 RBC (3.80-5.40) m/uL Hgb (11.4-16.0) gm/dL Hct (34.0-46.0) % MCV (80.0-100.0) fL MCHC (31.0-37.0) g/dL RDW (11.5-15.5) % Chloride (98-107) mmol/L BUN (7-17) mg/dL Creatinine (0.52-1.04) mg/dL Glucose (74-99) mg/dL POC Glucose (mg/dL) 208 H 132 H (75-99) mg/dL AST (14-36) U/L ALT (4-34) U/L Alkaline Phosphatase (38-126) U/L Total Protein (6.3-8.2) g/dL Albumin (3.5-5.0) g/dL Urine Appearance (Clear) Urine Blood (Negative) Ur Leukocyte Esterase (Negative) Amorphous Sediment (None) /hpf Urine Bacteria (None) /hpf Hyaline Casts (0-2) /lpf Urine Mucus (None) /hpf Ur Random Microalbumin 4.4 H (0.0-1.9) mg/dL U Random Total Protein (<12) mg/dL Microalb/Creat Ratio 121 H (0-30) mg/g Creat 02/01/20 02/01/20 02/01/20 Range/Units 06:01 06:51 06:51 RBC 3.26 L (3.80-5.40) m/uL Hgb 9.7 L (11.4-16.0) gm/dL Hct 33.1 L (34.0-46.0) % MCV 101.6 H (80.0-100.0) fL MCHC 29.3 L (31.0-37.0) g/dL RDW 18.7 H (11.5-15.5) % Chloride 108 H (98-107) mmol/L BUN 118 H* (7-17) mg/dL Creatinine 2.50 H (0.52-1.04) mg/dL Glucose 157 H (74-99) mg/dL POC Glucose (mg/dL) 169 H (75-99) mg/dL AST 108 H (14-36) U/L ALT 399 H (4-34) U/L Alkaline Phosphatase 179 H (38-126) U/L Total Protein 5.0 L (6.3-8.2) g/dL Albumin 2.5 L (3.5-5.0) g/dL Urine Appearance (Clear) Urine Blood (Negative) Ur Leukocyte Esterase (Negative) Amorphous Sediment (None) /hpf Urine Bacteria (None) /hpf Hyaline Casts (0-2) /lpf Urine Mucus (None) /hpf Ur Random Microalbumin (0.0-1.9) mg/dL U Random Total Protein (<12) mg/dL Microalb/Creat Ratio (0-30) mg/g Creat 02/01/20 Range/Units 11:34 RBC (3.80-5.40) m/uL Hgb (11.4-16.0) gm/dL Hct (34.0-46.0) % MCV (80.0-100.0) fL MCHC (31.0-37.0) g/dL RDW (11.5-15.5) % Chloride (98-107) mmol/L BUN (7-17) mg/dL Creatinine (0.52-1.04) mg/dL Glucose (74-99) mg/dL POC Glucose (mg/dL) 194 H (75-99) mg/dL AST (14-36) U/L ALT (4-34) U/L Alkaline Phosphatase (38-126) U/L Total Protein (6.3-8.2) g/dL Albumin (3.5-5.0) g/dL Urine Appearance (Clear) Urine Blood (Negative) Ur Leukocyte Esterase (Negative) Amorphous Sediment (None) /hpf Urine Bacteria (None) /hpf Hyaline Casts (0-2) /lpf Urine Mucus (None) /hpf Ur Random Microalbumin (0.0-1.9) mg/dL U Random Total Protein (<12) mg/dL Microalb/Creat Ratio (0-30) mg/g Creat Microbiology - Last 24 Hours (Table) 01/29/20 05:31 Blood Culture Gram Stain - Final Blood Blood Culture - Final Staphylococcus epidermidis 01/30/20 10:05 Blood Culture - Preliminary Blood No Growth after 24 hours 01/30/20 10:05 Blood Culture - Preliminary Blood No Growth after 24 hours
--- NOTE | 2020-02-01 14:49 | P.PN ---
Subjective Progress Note Date: 02/01/20 (delayed charting seen at 0930) Principal diagnosis: yellowing of skin Patient is a 64-year-old female with a history of chronic kidney disease, diabetes mellitus type 2, liver disease, and congestive heart failure who presented from an outside facility after being transferred from her extended care facility. There she was noted to have a rapid heart rate, elevated troponin, transaminitis, and renal failure. Of note the patient was recently hospitalized in [facility] for approximately 3 weeks. On arrival here she was diagnosed with non-STEMI and case was discussed with Dr. Dickerson with plans for conservative management and IV heparin. She was also noted to have acute on chr onic systolic congestive heart failure and was started on a Lasix drip. She was found have a large left pleural effusion and pulmonary was consulted. Patient and spouse declined repeat thoracentesis that she recently had one without much improvement. She underwent an echocardiogram which showed an ejection fraction of 20-25% with severe calcification and decreased excursion of the aortic valve systolic moderate to severe aortic stenosis. She underwent an abdominal ultrasound which was unable to visualize the sling of the left kidney, right kidney is no evidence of hydronephrosis, liver with no obvious masses. She was also noted to have acute hepatitis felt likely to be secondary to liver stasis from congestive heart failure. She was diuresising well on lasix gtt. Nephrology was consulted and started zaroxolyn. His lasix gtt was uptitrated. Records obtained from [facility]. She was admitted on 12/17 and discharged on 01/05. It appears that she had a CHF exacerbation, PNA, and sepsis with renal failure. She had A fib with RVR which required cardioversion X 2. She was disch arged with Amio and coumadin. Her baseline Cr 2. She had an echo done there which showed EF of 40-45% and mild- mod at that time. Prior to November she was ambulating with assistance for vision but her strength and endurance were normal. Per the this has been like a horrible nightmare to watch over the last 6 weeks. Per was 197 pounds at the end of november, on admission was 261 pounds. Patient seen and examined at bedside. She is doing okay today, no nausea, no vomiting, no diarrhea. Still short of breath, but improving, no chest pain. General: Ill appearing, no distress, appears older than stated age, obese Derm: warm, dry Head: atraumatic, normocephalic, symmetric Eyes: EOMI, no lid lag, anicteric sclera Mouth: no lip lesion, mucus membranes moist Cardiovascular: S1S2 reg, no murmur, positive posterior tibial pulse bilateral, Lungs: Absent breath sounds on the left, no accessory muscle use, no conversational dyspnea Abdominal: soft, nontender to palpation, no guarding, no appreciable organomegaly Ext: no gross muscle atrophy, 3+ lower extremity edema, no contractures Neuro: CN II-XI grossly intact, no focal neuro deficits Psych: Alert, oriented, appropriate affect Acute on chronic systolic congestive heart failure with ejection fraction 20-25% and severe aortic stenosis. Large left pleural effusion -Cardiology and pulmonary recommendations appreciated - EF in 01/07 was 40-45% and was moderate -Continue with Lasix drip (increased per nephro), zaroxlyn started -Strict I's and O's, daily weight - continue BB, allergic to ACEI FORREST on CKD with baseline cr 2 -Continue with Lasix drip increased on 01/31 -Strict I's and O's -Follow urine output -nephro recs appreciated, Zaroxlyn Anemia -Unknown baseline, but on procrit which infers that anemia is chronic -CBC -No overt signs or symptoms of bleeding DM 2 - hold 70/30 as not eating - SSI - Follow BS - Poor prognosis will not check A1C Non-ST segment elevated myocardial infarction - ASA, heparin gtt discontinued - no plans for intervention at this time. P. Atrial fibrillation - on Amiodarone at discharge from [facility]- currently off - Hx of A fib with RVR last month requiring cardioversion X 2 - on ASA only at baseline - had been discharged on coumadin from [facility] - currently off Transaminitis suspect secondary to hypoperfusion from congestive heart failure, coagulopathy - GI recs appreciated - hold statin - improving - follow liver enzymes - follow INR Hypertension, controlled - continue metoprolol, follow BP Obesity with BMI 45.2 - Diuresis for true weight - outpatient structured weight loss Gram-positive bacteremia,ruled out contaminant as repeat was negative. DVT prophylaxis: heparin gtt Discussed with: patient, nursing, nephrology Anticipated discharge: 4-[address]: SNF A total of 35 minutes was spent on the care of this complex patient more than 50% of the time was spent in counseling and care coordination. Objective - Vital Signs Vital signs: Vital Signs Temp 97.9 F 02/01/20 11:42 Pulse 80 02/01/20 11:42 Resp 20 02/01/20 11:42 BP 164/70 02/01/20 11:42 Pulse Ox 99 02/01/20 11:42 Intake & Output 01/31/20 02/01/20 02/01/20 18:59 06:59 18:59 Intake Total 478 100 658.667 Output Total 1440 1040 1050 Balance -962 -940 -391.333 Weight 117.5 kg Intake: Intake, IV Titration 100 100 48.667 Amount Furosemide 100 mg In 100 100 48.667 Sodium Chloride 0.9% 90 ml @ 15 MG/HR 15 mls/hr IV .Q6H40M [facility] Rx#: [id number] Oral 378 610 Output: Urine 1440 1040 1050 Other: Voiding Method Indwelling Catheter Indwelling Catheter Indwelling Catheter # Bowel Movements 1 1 - Labs CBC & Chem 7: 02/01/20 06:51 02/01/20 06:51 Labs: Abnormal Lab Results - Last 24 Hours (Table) 01/31/20 01/31/20 01/31/20 Range/Units 13:48 16:25 20:59 RBC (3.80-5.40) m/uL Hgb (11.4-16.0) gm/dL Hct (34.0-46.0) % MCV (80.0-100.0) fL MCHC (31.0-37.0) g/dL RDW (11.5-15.5) % Chloride (98-107) mmol/L BUN (7-17) mg/dL Creatinine (0.52-1.04) mg/dL Glucose (74-99) mg/dL POC Glucose (mg/dL) 208 H 132 H (75-99) mg/dL AST (14-36) U/L ALT (4-34) U/L Alkaline Phosphatase (38-126) U/L Total Protein (6.3-8.2) g/dL Albumin (3.5-5.0) g/dL Ur Random Microalbumin 4.4 H (0.0-1.9) mg/dL Microalb/Creat Ratio 121 H (0-30) mg/g Creat 02/01/20 02/01/20 02/01/20 Range/Units 06:01 06:51 06:51 RBC 3.26 L (3.80-5.40) m/uL Hgb 9.7 L (11.4-16.0) gm/dL Hct 33.1 L (34.0-46.0) % MCV 101.6 H (80.0-100.0) fL MCHC 29.3 L (31.0-37.0) g/dL RDW 18.7 H (11.5-15.5) % Chloride 108 H (98-107) mmol/L BUN 118 H* (7-17) mg/dL Creatinine 2.50 H (0.52-1.04) mg/dL Glucose 157 H (74-99) mg/dL POC Glucose (mg/dL) 169 H (75-99) mg/dL AST 108 H (14-36) U/L ALT 399 H (4-34) U/L Alkaline Phosphatase 179 H (38-126) U/L Total Protein 5.0 L (6.3-8.2) g/dL Albumin 2.5 L (3.5-5.0) g/dL Ur Random Microalbumin (0.0-1.9) mg/dL Microalb/Creat Ratio (0-30) mg/g Creat 02/01/20 Range/Units 11:34 RBC (3.80-5.40) m/uL Hgb (11.4-16.0) gm/dL Hct (34.0-46.0) % MCV (80.0-100.0) fL MCHC (31.0-37.0) g/dL RDW (11.5-15.5) % Chloride (98-107) mmol/L BUN (7-17) mg/dL Creatinine (0.52-1.04) mg/dL Glucose (74-99) mg/dL POC Glucose (mg/dL) 194 H (75-99) mg/dL AST (14-36) U/L ALT (4-34) U/L Alkaline Phosphatase (38-126) U/L Total Protein (6.3-8.2) g/dL Albumin (3.5-5.0) g/dL Ur Random Microalbumin (0.0-1.9) mg/dL Microalb/Creat Ratio (0-30) mg/g Creat Microbiology - Last 24 Hours (Table) 01/30/20 10:05 Blood Culture - Preliminary Blood No Growth after 48 hours 01/30/20 10:05 Blood Culture - Preliminary Blood No Growth after 48 hours 01/29/20 05:31 Blood Culture Gram Stain - Final Blood Blood Culture - Final Staphylococcus epidermidis
--- NOTE | 2020-02-01 14:50 | US ---
EXAMINATION TYPE: US chest DATE OF EXAM: 02/01/2020 COMPARISON: Xray CLINICAL HISTORY: Markings for thoracentesis by pulmonary staff. TECHNIQUE: Targeted ultrasound of the posterior lower left hemithorax EXAM MEASUREMENTS: Left Pleural Effusion pocket size: 9.9 cm Left skin surface to fluid distance: 1.8 cm Left side marked for possible thoracentesis outside the dept. Pulmonologists are able to review the images in the patient?s EMR. IMPRESSIONS: Pleural effusion
--- NOTE | 2020-02-01 16:57 | P.PN ---
Subjective Progress Note Date: 02/01/20 Principal diagnosis: Large left-sided pleural effusion, acute CHF exacerbation This is a 64-year-old female patient and I've asked to see this patient because of a pleural effusion that was on the left side that was identified on the chest x-ray. This was a large left-sided pleural effusion. I came and saw the patient in the emergency department. He was supposed to go to the intensive care unit. I did a discussion with her was at the bedside. This patient has a very complicated medical history. The patient is legally blind and she has underlying diabetes mellitus. She has history of severe cardiomyopathy, CHF, valvular heart disease , previous coronary artery disease with myocardial infarctions and chronic atrial fibrillation. She has also chronic liver disease probably related to her CHF. The patient Was admitted to [facility] on multiple occasions regarding her medical problems. Most of her physicians are either in [facility] or [facility] in [facility]. She was sent to a [facility] facility and she was referred to us for worsening shortness of breath. At a time of admission, the patient was found to be profoundly weak and debilitated. She does have diffuse anasarca with extensive edema in lower extremities bilaterally. Her troponin was positive. She denied having any chest pain. Nevertheless, her troponin max was found to be 32 and his progress and the downtrending is down to 17 for now. Meanwhile, the patient's proBNP level was 19,800. She had an acute kidney injury with a creatinine of 2.27 with a mean of 93. I think she does have an underlying chronic kidney disease. Her baseline creatinine is not known to me at this point in time. The patient had a bedside echocardiogram during this current hospital stay and the echo showed an ejection fraction of 20-25% and the patient had severe global hypokinesis of the LV. RV was not a critically visualized. The patient has a a possible bicuspid valve. There was severe calcification within the valves. There was also evidence of moderate to severe aortic stenosis. The degree of the aortic stenosis could not be estimated as the patient had a poor ejection fraction. Rest of the valves were adequate for now. There was a large left-sided pleural effusion that was also confirmed by a chest x-ray that was done at time of admission. Her cardiac rhythm was normal sinus. The patient had Q waves throughout the anterolateral leads indicating a previous GA. Ultrasound of the abdomen was essentially nonspecific. Upon further questioning, the patient states that she has received a recent thoracentesis of the left lung that was done in [facility] and the procedure itself did not give her much relief. Unfortunately, none of this information is available to me at a time of my evaluation. The patient herself is a poor historian. Some of the information is provided by the who is not detailed in his descriptions in terms of the patient's medical problems. For now, the patient is having some shortness of breath even at rest. She has orthopnea. She is profoundly fatigued and weak and lethargic and debilitated. LFTs were also abnormal with a AST of 1010 and ALT of 879. The patient's CRP was 13, LDH was 2081, ammonia level was less than 9. A routine coronavirus/Covid 19 nasal swab came back negative. Her serum albumin is at 2.9. Noted the patient's baseline performance and functional status is extremely poor. The patient is currently nonambulatory. She is 24 hour care and [facility] facility. 01/30/2020, the patient's condition essentially unchanged compared to yesterday. Extremely lethargic and somnolent. She is currently on a Lasix drip at 10 mg an hour. No significant improvement in the volume status. She is also on IV heparin per cardiology. No worsening in her shortness of breath. The patient i s currently on oxygen by nasal cannula at 4 L. No use of accessory muscle breathing. No signs of any significant respiratory distress. Follow-up chest x-ray is to follow today. 01/31/2020, the patient remains on Lasix drip at 10 mg an hour. He patient is in critical condition. Lethargic and somnolent. She is unresponsive. She has a Faust catheter in place. Urine output is also of over 100 mL an hour. Her net fluid balance has been negative and the patient is producing adequate amount of urine output. Exact measurements are not reliable. Meanwhile, the blood work shows remains stable with a creatinine of 2.42 and the BUN of 111. Rest of the electrodes are within normal limits. She is getting slightly alkalotic with a serum bicarb of 27. Her liver function tests continue to improve. She is on 4 L of oxygen by nasal cannula. Chest x-ray still showing complete opacification of the left lung with a left-sided pleural effusion. She is on IV heparin. Coagulation profile from today shows a PTT of 73.5. On 02/01/2020 patient seen in follow-up on selective care unit, she is resting comfortably in bed, denies any acute distress, currently on 3 L of oxygen per pulse ox is 97-99%, she's been afebrile, no complaint of chest pain, no worsening dyspnea, her follow-up chest x-ray today continues to show complete opacification of the left hemithorax, no sizable pneumothorax, stable in appearance, patient continues on diuretics, she has produced 2.4 L in urine output, and net fluid balance is -1.9 L, she continues to be very generally swollen, but no worsening dyspnea, renal profile is relatively stable with BUN of 118, and creatinine of 2.5, her coronavirus screen was negative. Blood culture from 01/29/2020 staph epidermidis, patient received a dose of vancomycin, which has since been discontinued, patient has had no fever or chills. Patient continues on Lasix infusion at 15 mg per hour in addition to metolazone at 2-1/2 mg twice daily. Objective - Vital Signs Vital signs: Vital Signs Temp 98 F 02/01/20 16:00 Pulse 70 02/01/20 16:00 Resp 20 02/01/20 16:00 BP 152/63 02/01/20 16:00 Pulse Ox 97 02/01/20 16:00 Intake & Output 01/31/20 02/01/20 02/01/20 18:59 06:59 18:59 Intake Total 478 100 773.667 Output Total 1440 1040 1050 Balance -962 -940 -276.333 Weight 117.5 kg Intake: IV 115 Furosemide 100 mg In 115 Sodium Chloride 0.9% 90 ml @ 15 MG/HR 15 mls/hr IV .Q6H40M RUSSEL Rx#: [id number] Intake, IV Titration 100 100 48.667 Amount Furosemide 100 mg In 100 100 48.667 Sodium Chloride 0.9% 90 ml @ 15 MG/HR 15 mls/hr IV .Q6H40M RUSSEL Rx#: [id number] Oral 378 610 Output: Urine 1440 1040 1050 Other: Voiding Method Indwelling Catheter Indwelling Catheter Indwelling Catheter # Bowel Movements 1 1 - Exam GENERAL EXAM: Alert, pleasant, 64-year-old white female, 3 L of oxygen the pulse ox 97%, resting in bed, comfortable in no apparent distress. HEAD: Normocephalic/atraumatic. EYES: Normal reaction of pupils, equal size. Conjunctiva pink, sclera white. NOSE: Clear with pink turbinates. THROAT: No erythema or exudates. NECK: No masses, no JVD, no thyroid enlargement, no adenopathy. CHEST: No chest wall deformity. Symmetrical expansion. LUNGS: Equal air entry with diminished breath sounds over left upper, mid and lower lobes, with the dullness to percussion CVS: Regular rate and rhythm, normal S1 and S2, no gallops, no murmurs, no rubs ABDOMEN: Soft, nontender. No hepatosplenomegaly, normal bowel sounds, no guarding or rigidity. EXTREMITIES: No clubbing, 1+ lower extremity edema, no cyanosis, 2+ pulses and upper and lower extremities. MUSCULOSKELETAL: Muscle strength and tone normal. SPINE: No scoliosis or deformity SKIN: No rashes CENTRAL NERVOUS SYSTEM: Alert and oriented -3. No focal deficits, tone is normal in all 4 extremities. PSYCHIATRIC: Alert and oriented -3. Appropriate affect. Intact judgment and insight. - Labs CBC & Chem 7: 02/01/20 06:51 02/01/20 06:51 Labs: Abnormal Lab Results - Last 24 Hours (Table) 01/31/20 01/31/20 02/01/20 Range/Units 13:48 20:59 06:01 RBC (3.80-5.40) m/uL Hgb (11.4-16.0) gm/dL Hct (34.0-46.0) % MCV (80.0-100.0) fL MCHC (31.0-37.0) g/dL RDW (11.5-15.5) % Chloride (98-107) mmol/L BUN (7-17) mg/dL Creatinine (0.52-1.04) mg/dL Glucose (74-99) mg/dL POC Glucose (mg/dL) 132 H 169 H (75-99) mg/dL AST (14-36) U/L ALT (4-34) U/L Alkaline Phosphatase (38-126) U/L Total Protein (6.3-8.2) g/dL Albumin (3.5-5.0) g/dL Ur Random Microalbumin 4.4 H (0.0-1.9) mg/dL Microalb/Creat Ratio 121 H (0-30) mg/g Creat 02/01/20 02/01/20 02/01/20 Range/Units 06:51 06:51 11:34 RBC 3.26 L (3.80-5.40) m/uL Hgb 9.7 L (11.4-16.0) gm/dL Hct 33.1 L (34.0-46.0) % MCV 101.6 H (80.0-100.0) fL MCHC 29.3 L (31.0-37.0) g/dL RDW 18.7 H (11.5-15.5) % Chloride 108 H (98-107) mmol/L BUN 118 H* (7-17) mg/dL Creatinine 2.50 H (0.52-1.04) mg/dL Glucose 157 H (74-99) mg/dL POC Glucose (mg/dL) 194 H (75-99) mg/dL AST 108 H (14-36) U/L ALT 399 H (4-34) U/L Alkaline Phosphatase 179 H (38-126) U/L Total Protein 5.0 L (6.3-8.2) g/dL Albumin 2.5 L (3.5-5.0) g/dL Ur Random Microalbumin (0.0-1.9) mg/dL Microalb/Creat Ratio (0-30) mg/g Creat Microbiology - Last 24 Hours (Table) 01/30/20 10:05 Blood Culture - Preliminary Blood No Growth after 48 hours 01/30/20 10:05 Blood Culture - Preliminary Blood No Growth after 48 hours 01/29/20 05:31 Blood Culture Gram Stain - Final Blood Blood Culture - Final Staphylococcus epidermidis Assessment and Plan Plan: Assessment: 1 large left-sided pleural effusion, consistent with underlying CHF. The patient states that she has had previous thoracentesis and there has been reacc umulation of left-sided pleural effusion. He opted not to do a thoracentesis. We opted to go with diuresis. The patient is producing good amount of urine output while being on Lasix 15 mg an hour. Monitor the fluid balance. 2 chronic dyspnea secondary to CHF and a large left-sided pleural effusion, she is stable for now. Repeat chest x-rays to follow tomorrow. 3 acute non-ST segment elevation myocardial infarction with elevated troponins which are downtrending, currently on IV heparin 4 CHF with systolic heart failure due to an ejection fraction of 20-25% 5 severe aortic stenosis with a possibility of a bicuspid aortic valve. The exact and the severity of the valve stenosis cannot be established at this point in time based on low ejection fraction and poor windows an echocardiogram 6 history of atrial fibrillation, current rhythm is sinus 7 coronary artery disease with Q waves involving the anterior and the lateral leads consistent with previous GA 8 chronic kidney disease with possibility of an acute kidney injury on top of chronic kidney disease, renal function is stable 9 chronic liver disease, probably related to CHF and congestive hepatopathy. LFTs are quite elevated. Correlation profile needs to be repeated. Ammonia level was nonelevated. The patient's LFTs are also improving. 10 diabetes mellitus 11 legal blindness secondary to diabetes mellitus 12 coagulopathy, likely secondary to chronic liver disease , currently on IV heparin and the patient would need a repeat coagulation profile. 13 coagulase-negative staph in the blood, likely contaminant Plan: Continue the diuretics, patient is in negative fluid balance, however today's chest x-ray still shows stable left lung opacification with left deric thorax, no worsening dyspnea, but ultrasound the chest shows 9.9 cm fluid pocket on the left, obtain consent for left-sided thoracentesis, hold Lovenox, if the patient and her want us to proceed with left-sided thoracentesis. I performed a history & physical examination of the patient and discussed their management with my nurse practitioner, Kimberly Puri. I reviewed the nurse practitioner's note and agree with the documented findings and plan of care. Lung sounds are positive for diminished breath sounds, with dullness to p ercussion over left lung. The findings and the impression was discussed with the patient. I attest to the documentation by the nurse practitioner. Time with Patient: Less than 30
[2020-02-01 16:59] LABS: Glucose,Whole Blood 129 mg/dL (75-99)
[2020-02-01 19:57] LABS: Glucose,Whole Blood 149 mg/dL (75-99)
[2020-02-02] MEDS: FUROSEMIDE 100 MG in SODIUM CHLORIDE 0.9% 90 ML IV SCH ×2 (03:38→11:15)
[2020-02-02 06:05] LABS: Glucose,Whole Blood 145 mg/dL (75-99)
[2020-02-02] MEDS: INSULIN ASPART (NovoLOG) 100 UNIT/ML VIAL SQ SCH (06:31)
[2020-02-02] MEDS: NITROGLYCERIN OINT 1 INCH/GM PACKET TOPICAL SCH (06:31)
[2020-02-02 09:15] LABS: Anisocytosis Slight; HCT 32.6 % (34.0-46.0); HGB 9.6 gm/dL (11.4-16.0); Hypochromasia Marked; MCH 29.9 pg (25.0-35.0); MCHC 29.5 g/dL (31.0-37.0); MCV 101.3 fL (80.0-100.0); Macrocytosis Moderate; Mean Platelet Volume 7.9; Platelet Count 411 k/uL (150-450); RBC 3.21 m/uL (3.80-5.40); RDW 18.1 % (11.5-15.5)
[2020-02-02 09:17] LABS: Calcium 8.9 mg/dL (8.4-10.2); Potassium 3.7 mmol/L (3.5-5.1)
[2020-02-02] MEDS: metOLazone 2.5 MG TAB PO SCH (09:26)
[2020-02-02] MEDS: VENLAFAXINE HCL ER 37.5 MG CAP PO SCH (09:26)
[2020-02-02] MEDS: ASPIRIN 81 MG PO SCH (09:26)
[2020-02-02] MEDS: PANTOPRAZOLE 40 MG TABLET PO SCH (09:26)
[2020-02-02] MEDS: METOPROLOL TARTRATE 25 MG TAB PO SCH (09:26)
[2020-02-02] MEDS: CALCIUM CARB-VIT D 500MG-200UN 1 EACH TAB PO SCH (09:27)
[2020-02-02] MEDS: FERROUS SULFATE 325 MG TAB PO SCH ×2 (09:27→09:31)
[2020-02-02] MEDS: ASCORBIC ACID 500 MG TAB PO SCH ×2 (09:27→09:30)
[2020-02-02 09:44] VITALS: RESP 16; TEMP 97.5
--- NOTE | 2020-02-02 09:48 | P.PN ---
Subjective Patient is seen in follow-up for acute kidney injury. Renal function little worse from diuresis. Nonoliguric. Edema improving. Weight trending down but I'm not sure accurate this is. Currently on 3 L nasal cannula. Vital signs are stable. General: The patient appeared well nourished and normally developed. HEENT: Head exam is unremarkable. Neck is without jugular venous distension. LUNGS: Breath sounds decreased. HEART: Rate and Rhythm are regular. ABDOMEN: Soft, nontender. EXTREMITITES: 2+ edema. Objective - Vital Signs Vital signs: Vital Signs Temp 97.5 F L 02/02/20 08:00 Pulse 80 02/02/20 08:00 Resp 16 02/02/20 08:00 BP 152/65 02/02/20 08:00 Pulse Ox 97 02/02/20 08:00 Intake & Output 02/01/20 02/02/20 02/02/20 18:59 06:59 18:59 Intake Total 825.000 98.25 420 Output Total 1050 2500 400 Balance -225.000 -2401.75 20 Weight 97.5 kg Intake: IV 115 Furosemide 100 mg In 115 Sodium Chloride 0.9% 90 ml @ 15 MG/HR 15 mls/hr IV .Q6H40M RUSSEL Rx#: [id number] Intake, IV Titration 100.000 98.25 Amount Furosemide 100 mg In 100.000 98.25 Sodium Chloride 0.9% 90 ml @ 15 MG/HR 15 mls/hr IV .Q6H40M RUSSEL Rx#: [id number] Oral 610 420 Output: Urine 1050 2500 400 Uretheral (Faust) 900 Other: Voiding Method Indwelling Catheter Indwelling Catheter # Bowel Movements 1 - Labs CBC & Chem 7: 02/02/20 08:44 02/02/20 08:44 Labs: Abnormal Lab Results - Last 24 Hours (Table) 02/01/20 02/01/20 02/01/20 Range/Units 11:34 16:57 19:56 RBC (3.80-5.40) m/uL Hgb (11.4-16.0) gm/dL Hct (34.0-46.0) % MCV (80.0-100.0) fL MCHC (31.0-37.0) g/dL RDW (11.5-15.5) % BUN (7-17) mg/dL Creatinine (0.52-1.04) mg/dL Glucose (74-99) mg/dL POC Glucose (mg/dL) 194 H 129 H 149 H (75-99) mg/dL 02/02/20 02/02/20 02/02/20 Range/Units 06:03 08:44 08:44 RBC 3.21 L (3.80-5.40) m/uL Hgb 9.6 L (11.4-16.0) gm/dL Hct 32.6 L (34.0-46.0) % MCV 101.3 H (80.0-100.0) fL MCHC 29.5 L (31.0-37.0) g/dL RDW 18.1 H (11.5-15.5) % BUN 111 H* (7-17) mg/dL Creatinine 2.78 H (0.52-1.04) mg/dL Glucose 138 H (74-99) mg/dL POC Glucose (mg/dL) 145 H (75-99) mg/dL Microbiology - Last 24 Hours (Table) 01/30/20 10:05 Blood Culture - Preliminary Blood No Growth after 48 hours 01/30/20 10:05 Blood Culture - Preliminary Blood No Growth after 48 hours Assessment and Plan Plan: Assessment: 1. Acute kidney injury secondary to ATN secondary to cardiorenal syndrome. Creatinine 2.78 today. No proteinuria on UA. No hydronephrosis noted on kidney ultrasound. Left kidney not visualized. 2. Acute on chronic systolic CHF with ejection fraction of 20-25%. 3. Volume overload. Improving with diuresis. 4. Diabetes mellitus. Plan: Maintain Lasix drip. Maintain metolazone. 1500 mL fluid restriction. Low-salt diet. Continue to monitor renal function and urine output.
--- NOTE | 2020-02-02 11:38 | XR ---
EXAMINATION TYPE: XR chest 1V portable DATE OF EXAM: 02/02/2020 COMPARISON: 02/01/2020 HISTORY: Post left thoracentesis TECHNIQUE: Single frontal view of the chest is obtained. FINDINGS: Patient is rotated which limits exam there is a marked improvement in aeration of the left lung persistent consolidation pleural fluid. Reduced inspiration. Right lung is stable in appearance . Atherosclerotic change aorta. No sizable pneumothorax. IMPRESSION: 1. No sizable pneumothorax. 2. Marked improved aeration within the left hemithorax.
[2020-02-02 11:56] LABS: Glucose,Whole Blood 184 mg/dL (75-99)
--- NOTE | 2020-02-02 12:13 | P.PN ---
Subjective Progress Note Date: 02/02/20 Principal diagnosis: Large left-sided pleural effusion, acute CHF exacerbation This is a 64-year-old female patient and I've asked to see this patient because of a pleural effusion that was on the left side that was identified on the chest x-ray. This was a large left-sided pleural effusion. I came and saw the patient in the emergency department. He was supposed to go to the intensive care unit. I did a discussion with her was at the bedside. This patient has a very complicated medical history. The patient is legally blind and she has underlying diabetes mellitus. She has history of severe cardiomyopathy, CHF, valvular heart disease , previous coronary artery disease with myocardial infarctions and chronic atrial fibrillation. She has also chronic liver disease probably related to her CHF. The patient Was admitted to [facility] on multiple occasions regarding her medical problems. Most of her physicians are either in [facility] or [facility]. She was sent to a [facility] facility and she was referred to us for worsening shortness of breath. At a time of admission, the patient was found to be profoundly weak and debilitated. She does have diffuse anasarca with extensive edema in lower extremities bilaterally. Her troponin was positive. She denied having any chest pain. Nevertheless, her troponin max was found to be 32 and his progress and the downtrending is down to 17 for now. Meanwhile, the patient's proBNP level was 19,800. She had an acute kidney injury with a creatinine of 2.27 with a mean of 93. I think she does have an underlying chronic kidney disease. Her baseline creatinine is not known to me at this point in time. The patient had a bedside echocardiogram during this current hospital stay and the echo showed an ejection fraction of 20-25% and the patient had severe global hypokinesis of the LV. RV was not a critically visualized. The patient has a a possible bicuspid valve. There was severe calcification within the valves. There was also evidence of moderate to severe aortic stenosis. The degree of the aortic stenosis could not be estimated as the patient had a poor ejection fraction. Rest of the valves were adequate for now. There was a large left-sided pleural effusion that was also confirmed by a chest x-ray that was done at time of admission. Her cardiac rhythm was normal sinus. The patient had Q waves throughout the anterolateral leads indicating a previous NE. Ultrasound of the abdomen was essentially nonspecific. Upon further questioning, the patient states that she has received a recent thoracentesis of the left lung that was done in [facility] and the procedure itself did not give her much relief. Unfortunately, none of this information is available to me at a time of my evaluation. The patient herself is a poor historian. Some of the information is provided by the who is not detailed in his descriptions in terms of the patient's medical problems. For now, the patient is having some shortness of breath even at rest. She has orthopnea. She is profoundly fatigued and weak and lethargic and debilitated. LFTs were also abnormal with a AST of 1010 and ALT of 879. The patient's CRP was 13, LDH was 2081, ammonia level was less than 9. A routine coronavirus/Covid 19 nasal swab came back negative. Her serum albumin is at 2.9. Noted the patient's baseline performance and functional status is extremely poor. The patient is currently nonambulatory. She is 24 hour care and [facility] facility. 01/30/2020, the patient's condition essentially unchanged compared to yesterday. Extremely lethargic and somnolent. She is currently on a Lasix drip at 10 mg an hour. No significant improvement in the volume status. She is also on IV heparin per cardiology. No worsening in her shortness of breath. The patient i s currently on oxygen by nasal cannula at 4 L. No use of accessory muscle breathing. No signs of any significant respiratory distress. Follow-up chest x-ray is to follow today. 01/31/2020, the patient remains on Lasix drip at 10 mg an hour. He patient is in critical condition. Lethargic and somnolent. She is unresponsive. She has a Faust catheter in place. Urine output is also of over 100 mL an hour. Her net fluid balance has been negative and the patient is producing adequate amount of urine output. Exact measurements are not reliable. Meanwhile, the blood work shows remains stable with a creatinine of 2.42 and the BUN of 111. Rest of the electrodes are within normal limits. She is getting slightly alkalotic with a serum bicarb of 27. Her liver function tests continue to improve. She is on 4 L of oxygen by nasal cannula. Chest x-ray still showing complete opacification of the left lung with a left-sided pleural effusion. She is on IV heparin. Coagulation profile from today shows a PTT of 73.5. On 02/01/2020 patient seen in follow-up on selective care unit, she is resting comfortably in bed, denies any acute distress, currently on 3 L of oxygen per pulse ox is 97-99%, she's been afebrile, no complaint of chest pain, no worsening dyspnea, her follow-up chest x-ray today continues to show complete opacification of the left hemithorax, no sizable pneumothorax, stable in appearance, patient continues on diuretics, she has produced 2.4 L in urine output, and net fluid balance is -1.9 L, she continues to be very generally swollen, but no worsening dyspnea, renal profile is relatively stable with BUN of 118, and creatinine of 2.5, her coronavirus screen was negative. Blood culture from 01/29/2020 staph epidermidis, patient received a dose of vancomycin, which has since been discontinued, patient has had no fever or chills. Patient continues on Lasix infusion at 15 mg per hour in addition to metolazone at 2-1/2 mg twice daily. On 02/02/2020 patient seen in follow-up on selective care unit, today she feels more short of breath, although she still is on 2 L of oxygen per pulse ox is 93%, her been gave consent for left-sided thoracentesis today, she has been on diuretics, she continues to 2.6 net fluid balance. Today's labs have been reviewed, showing white blood cell count 7.0, hemoglobin is 9.6, electrodes were within normal limits, there is been slight worsening of her renal profile, with B1 of 111, and creatinine of 2.78. Lovenox is on hold, patient is also verbally consenting to left-sided thoracentesis, this was done at the bedside she tolerated procedure well, 2.4 L of dark, pleural fluid was removed, and sent for analysis cytology and cultures. Objective - Vital Signs Vital signs: Vital Signs Temp 97.5 F L 02/02/20 08:00 Pulse 80 02/02/20 08:00 Resp 16 02/02/20 08:00 BP 152/65 02/02/20 08:00 Pulse Ox 97 02/02/20 08:00 Intake & Output 02/01/20 02/02/2020 18:59 06:59 18:59 Intake Total 825.000 98.25 520 Output Total 1050 2500 850 Balance -225.000 -2401.75 -330 Weight 97.5 kg Intake: IV 115 Furosemide 100 mg In 115 Sodium Chloride 0.9% 90 ml @ 15 MG/HR 15 mls/hr IV .Q6H40M RUSSEL Rx#: [id number] Intake, IV Titration 100.000 98.25 100 Amount Furosemide 100 mg In 100.000 98.25 100 Sodium Chloride 0.9% 90 ml @ 15 MG/HR 15 mls/hr IV .Q6H40M RUSSEL Rx#: [id number] Oral 610 420 Output: Urine 1050 2500 850 Uretheral (Faust) 900 Other: Voiding Method Indwelling Catheter Indwelling Catheter Indwelling Catheter # Bowel Movements 1 - Exam GENERAL EXAM: Alert, pleasant, 64-year-old white female, 2 L of oxygen the pulse ox 97%, resting in bed, comfortable in no apparent distress. HEAD: Normocephalic/atraumatic. EYES: Normal reaction of pupils, equal size. Conjunctiva pink, sclera white. NOSE: Clear with pink turbinates. THROAT: No erythema or exudates. NECK: No masses, no JVD, no thyroid enlargement, no adenopathy. CHEST: No chest wall deformity. Symmetrical expansion. LUNGS: Equal air entry with diminished breath sounds over left upper, mid and lower lobes, with the dullness to percussion CVS: Regular rate and rhythm, normal S1 and S2, no gallops, no murmurs, no rubs ABDOMEN: Soft, nontender. No hepatosplenomegaly, normal bowel sounds, no guarding or rigidity. EXTREMITIES: No clubbing, 1+ lower extremity edema, no cyanosis, 2+ pulses and upper and lower extremities. MUSCULOSKELETAL: Muscle strength and tone normal. SPINE: No scoliosis or deformity SKIN: No rashes CENTRAL NERVOUS SYSTEM: Alert and oriented -3. No focal deficits, tone is normal in all 4 extremities. PSYCHIATRIC: Alert and oriented -3. Appropriate affect. Intact judgment and insight. - Labs CBC & Chem 7: 02/02/20 08:44 02/02/20 08:44 Labs: Abnormal Lab Results - Last 24 Hours (Table) 02/01/20 02/01/20 02/02/20 Range/Units 16:57 19:56 06:03 RBC (3.80-5.40) m/uL Hgb (11.4-16.0) gm/dL Hct (34.0-46.0) % MCV (80.0-100.0) fL MCHC (31.0-37.0) g/dL RDW (11.5-15.5) % BUN (7-17) mg/dL Creatinine (0.52-1.04) mg/dL Glucose (74-99) mg/dL POC Glucose (mg/dL) 129 H 149 H 145 H (75-99) mg/dL 02/02/20 02/02/20 02/02/20 Range/Units 08:44 08:44 11:54 RBC 3.21 L (3.80-5.40) m/uL Hgb 9.6 L (11.4-16.0) gm/dL Hct 32.6 L (34.0-46.0) % MCV 101.3 H (80.0-100.0) fL MCHC 29.5 L (31.0-37.0) g/dL RDW 18.1 H (11.5-15.5) % BUN 111 H* (7-17) mg/dL Creatinine 2.78 H (0.52-1.04) mg/dL Glucose 138 H (74-99) mg/dL POC Glucose (mg/dL) 184 H (75-99) mg/dL Microbiology - Last 24 Hours (Table) 01/30/20 10:05 Blood Culture - Preliminary Blood No Growth after 48 hours 01/30/20 10:05 Blood Culture - Preliminary Blood No Growth after 48 hours Assessment and Plan Plan: Assessment: 1 large left-sided pleural effusion, consistent with underlying CHF. The patie nt states that she has had previous thoracentesis and there has been reaccumulation of left-sided pleural effusion. Initially patient had declined thoracentesis, and was managed with IV diuretics, however she finally agreed to left-sided thoracentesis which was done today on 02/02/2020 would removal of 2.5 L in cloudy, dark pleural fluid which was sent for analysis, cytology and cultures 2 chronic dyspnea secondary to CHF and a large left-sided pleural effusion, she is stable for now. Repeat chest x-rays to follow tomorrow. 3 acute non-ST segment elevation myocardial infarction with elevated troponins which are downtrending, currently on IV heparin 4 CHF with systolic heart failure due to an ejection fraction of 20-25% 5 severe aortic stenosis with a possibility of a bicuspid aortic valve. The exact and the severity of the valve stenosis cannot be established at this point in time based on low ejection fraction and poor windows an echocardiogram 6 history of atrial fibrillation, current rhythm is sinus 7 coronary artery disease with Q waves involving the anterior and the lateral leads consistent with previous NE 8 chronic kidney disease with possibility of an acute kidney injury on top of chronic kidney disease, renal function is stable 9 chronic liver disease, probably related to CHF and congestive hepatopathy. LFTs are quite elevated. Correlation profile needs to be repeated. Ammonia level was nonelevated. The patient's LFTs are also improving. 10 diabetes mellitus 11 legal blindness secondary to diabetes mellitus 12 coagulopathy, likely secondary to chronic liver disease , currently on IV heparin and the patient would need a repeat coagulation profile. 13 coagulase-negative staph in the blood, likely contaminant Plan: Continue diuretics, patient tolerated this arthrocentesis well, 2.5 L of dark cloudy pleural fluid was removed from the left lung, postprocedure chest x-ray showed no sizable pneumothorax, and marked improvement in aeration in the left lung. Some worsening of her renal function was noted on today's labs, we will stop the IV Lasix infusion, and we'll switch the patient to Lasix 40 mg every 8 hours, follow-up labs in the morning, we'll continue to follow. I performed a history & physical examination of the patient and discussed their management with my nurse practitioner, Kimberly Puri. I reviewed the nurse practitioner's note and agree with the documented findings and plan of care. Lung sounds are positive for diminished breath sounds, with dullness to percussion over left lung. The findings and the impression was discussed with the patient. I attest to the documentation by the nurse practitioner. Time with Patient: Less than 30
[2020-02-02 12:54] VITALS: BP 75/59; PULSE 76
[2020-02-02] MEDS ORDERED: SODIUM CHLORIDE 0.9% 1,000 ML BAG ONE (13:09)
[2020-02-02] MEDS ORDERED: EPINEPHrine 10 ML SYRINGE (0.1 MG/ML) ONE (13:09)
[2020-02-02] MEDS ORDERED: SODIUM BICARB 8.4% 50 ML SYR (1 MEQ/ML) ONE (13:09)
[2020-02-02 13:17] LABS: Glucose,Whole Blood 153 mg/dL (75-99)
--- NOTE | 2020-02-02 14:20 | P.PN ---
Subjective Progress Note Date: 02/02/20 HISTORY OF PRESENT ILLNESS: Patient examined this morning at the bedside. Patient denies chest pain or pressure. She underwent thoracentesis today per pulmonary with removal of 2400 mL. She remains on a lasix drip at the time of examination. Creatinine 2.78. PHYSICAL EXAM: VITAL SIGNS: Reviewed. GENERAL: Well-developed in no acute distress. NECK: Supple. No JVD or thyromegaly LUNGS: Respirations even and unlabored. Lungs diminished. HEART: Regular rate and rhythm. S1 and S2 heard. EXTREMITIES: Normal range of motion. No clubbing or cyanosis. Peripheral pulses intact. 3+ bilateral lower extremity edema ASSESSMENT: Subacute non-ST elevated myocardial infarction Acute on chronic systolic heart failure Diabetes mellitus Transaminitis Hypertension Chronic kidney disease Myocardial infarction in November treated conservatively per the Paroxysmal atrial fibrillation with RVR, requiring cardioversion x 2, per records at [facility] from PLAN: Continue current cardiac medications Continue lasix per pulmonary Further recommendations pending patient course Nurse practitioner note has been reviewed by physician. Signing provider agrees with the documented findings, assessment, and plan of care. Objective - Vital Signs Vital signs: Vital Signs Temp 97.5 F L 02/02/20 08:00 Pulse 76 02/02/20 12:00 Resp 16 02/02/20 12:00 BP 75/59 02/02/20 12:00 Pulse Ox 97 02/02/20 12:00 Intake & Output 02/01/20 02/02/20 02/02/20 18:59 06:59 18:59 Intake Total 825.000 98.25 520 Output Total 1050 2500 850 Balance -225.000 -2401.75 -330 Weight 97.5 kg Intake: IV 115 Furosemide 100 mg In 115 Sodium Chloride 0.9% 90 ml @ 15 MG/HR 15 mls/hr IV .Q6H40M RUSSEL Rx#: [id number] Intake, IV Titration 100.000 98.25 100 Amount Furosemide 100 mg In 100.000 98.25 100 Sodium Chloride 0.9% 90 ml @ 15 MG/HR 15 mls/hr IV .Q6H40M RUSSEL Rx#: [id number] Oral 610 420 Output: Urine 1050 2500 850 Uretheral (Faust) 900 Other: Voiding Method Indwelling Catheter Indwelling Catheter Indwelling Catheter # Bowel Movements 1 - Labs CBC & Chem 7: 02/02/20 08:44 02/02/20 08:44 Labs: Abnormal Lab Results - Last 24 Hours (Table) 02/01/20 02/01/20 02/02/20 Range/Units 16:57 19:56 06:03 RBC (3.80-5.40) m/uL Hgb (11.4-16.0) gm/dL Hct (34.0-46.0) % MCV (80.0-100.0) fL MCHC (31.0-37.0) g/dL RDW (11.5-15.5) % BUN (7-17) mg/dL Creatinine (0.52-1.04) mg/dL Glucose (74-99) mg/dL POC Glucose (mg/dL) 129 H 149 H 145 H (75-99) mg/dL 02/02/20 02/02/20 02/02/20 Range/Units 08:44 08:44 11:54 RBC 3.21 L (3.80-5.40) m/uL Hgb 9.6 L (11.4-16.0) gm/dL Hct 32.6 L (34.0-46.0) % MCV 101.3 H (80.0-100.0) fL MCHC 29.5 L (31.0-37.0) g/dL RDW 18.1 H (11.5-15.5) % BUN 111 H* (7-17) mg/dL Creatinine 2.78 H (0.52-1.04) mg/dL Glucose 138 H (74-99) mg/dL POC Glucose (mg/dL) 184 H (75-99) mg/dL 02/02/20 Range/Units 13:12 RBC (3.80-5.40) m/uL Hgb (11.4-16.0) gm/dL Hct (34.0-46.0) % MCV (80.0-100.0) fL MCHC (31.0-37.0) g/dL RDW (11.5-15.5) % BUN (7-17) mg/dL Creatinine (0.52-1.04) mg/dL Glucose (74-99) mg/dL POC Glucose (mg/dL) 153 H (75-99) mg/dL Microbiology - Last 24 Hours (Table) 01/30/20 10:05 Blood Culture - Preliminary Blood No Growth after 72 hours 01/30/20 10:05 Blood Culture - Preliminary Blood No Growth after 72 hours
[2020-02-02 15:14] LABS: Appearance,BF Hazy; Nucleated Cells, Body Fluid 20 /uL; RBC, Body Fluid 14850 /uL
[2020-02-02 15:20] LABS: Mononuclear WBC,Body Fluid 74 %; Polynuclear WBC,Body Fluid 26 %; Total Cells Counted,Body Fluid 100
--- NOTE | 2020-02-02 15:41 | P.DS ---
Providers Date of admission: 01/29/20 06:05 Expected date of discharge: 02/02/20 Attending physician: Bianka Cruz MD Consults: 01/29/20 06:05 Consult Physician Routine Consulting Provider: Mohsen Varela Consult Reason/Comments: LlungEffusion Do you want consulting provider notified?: Yes Consult Physician Urgent Consulting Provider: Janneth Mccabe Consult Reason/Comments: nstemi Do you want consulting provider notified?: Yes 01/30/20 19:43 Consult Physician Routine Consulting Provider: Hayden Prince Consult Reason/Comments: FORREST on CKD with CHF on lasix gtt Do you want consulting provider notified?: Yes Primary care physician: Sophie Guevara Hospital Course: Discharge Diagnosis: Acute on chronic systolic congestive heart failure with ejection fraction 20-25% and severe aortic stenosis. Large left pleural effusion FORREST on CKD with baseline cr 2 Anemia DM 2 Non-ST segment elevated myocardial infarction P. Atrial fibrillation Transaminitis suspect secondary to hypoperfusion from congestive heart failure, coagulopathy Hypertension, controlled Obesity with BMI 45.2 Gram-positive bacteremia,ruled out contaminant as repeat was negative. Hospital Course: Patient is a 64-year-old female with a history of chronic kidney disease, diabetes mellitus type 2, liver disease, and congestive heart failure who presented from an outside facility after being transferred from her extended care facility. There she was noted to have a rapid heart rate, elevated troponin, transaminitis, and renal failure. Of note the patient was recently hospitalized in [facility] for approximately 3 weeks. On arrival here she was diagnosed with non-STEMI and case was discussed with Dr. Dickerson with plans for conservative management and IV heparin. She was also noted to have acute on chronic systolic congestive heart failure and was started on a Lasix drip. She was found have a large left pleural effusion and pulmonary was consulted. Patient and spouse declined repeat thoracentesis that she recently had one without much improvement. She underwent an echocardiogram which showed an ejec tion fraction of 20-25% with severe calcification and decreased excursion of the aortic valve systolic moderate to severe aortic stenosis. She underwent an abdominal ultrasound which was unable to visualize the sling of the left kidney, right kidney is no evidence of hydronephrosis, liver with no obvious masses. She was also noted to have acute hepatitis felt likely to be secondary to liver stasis from congestive heart failure. She was seen by GI who felt that her transaminitis was due to her hepatic congestion and this improved with diuresis. She was diuresising well on lasix gtt. Nephrology was consulted and started zaroxolyn. Her lasix gtt was uptitrated. She diuresised well but Cr was worsening slighty as anticipated. She had a Thoracentesis done on 02/01 with removal of 2L of bloodly fluid. Repat CXR showed improvement in Aeration with no pneumothorax. Her BP was noted to be low at 77/44. Notified by nursing and patient mentating well, no chest pain, no change in shortness of breath. Asked nurse to place in trendelenburg position, stop lasix gtt. Follow BP closely. Severe minutes later patient became apnic and lost pulses. Lyndsey Guevara was called and I arrived to find CPR in place with first round of epi being given. I followed this with 1 amp of bicarb. Patient was intubated by [employer]. Second round of epi was given. At this time she was noted to be a DNR and chest compression were stopped. She had a breif regain of pulses but BP was never detectable. Depsite IV fluid bolus being started she lost pulses again, and CPR was not restarted due to DNR status. SHe passed peacefully at 1324. notified by me. I offered to notify additional family. He declined. Absent Pulse, absent respiration, Pupils fixed and dilated, no cardiac activity A total of 35 minutes of time were spent preparing this complex discharge summary . Plan - Discharge Summary Discharge Rx Participant: No New Discharge Prescriptions: No Action Acetaminophen Tab [Tylenol] 650 mg PO Q6H PRN MDD 3000MG PRN Reason: Pain Amiodarone [Cordarone] 200 mg PO DAILY Ascorbic Acid [Vitamin C] 500 mg PO DAILY Aspirin 81 mg PO DAILY Bisoprolol [Zebeta] 5 mg PO BID@0800,1600 Calcium Carb-Vit D 500Mg-200Un [Oscal 500+D] 1 tab PO DAILY Epoetin Jeremias [Procrit] 10,000 unit SQ WE Ezetimibe [Zetia] 10 mg PO DAILY Ferrous Sulfate [Feosol] 325 mg PO DAILY Insuln Asp Prt/Insulin Aspart [NovoLOG MIX 70-30 VIAL] 20 unit SQ DAILY@0730 PRN PRN Reason: EATS 50% FOOD Insuln Asp Prt/Insulin Aspart [NovoLOG MIX 70-30 VIAL] 13 unit SQ HS@1900 PRN PRN Reason: EATS 50% FOOD Insuln Asp Prt/Insulin Aspart [NovoLOG MIX 70-30 VIAL] 30 unit SQ DAILY@1800 Multivitamins, Thera [Multivitamin (formulary)] 1 tab PO DAILY Omeprazole [PriLOSEC] 20 mg PO DAILY Torsemide [Demadex] 50 mg PO DAILY Ubidecarenone [Co Q-10] 200 mg PO DAILY Venlafaxine HCl [Effexor XR] 37.5 mg PO DAILY Discharge Medication List Acetaminophen Tab [Tylenol] 650 mg PO Q6H PRN MDD 3000MG 01/29/20 [History] Amiodarone [Cordarone] 200 mg PO DAILY 01/29/20 [History] Ascorbic Acid [Vitamin C] 500 mg PO DAILY 01/29/20 [History] Aspirin 81 mg PO DAILY 01/29/20 [History] Bisoprolol [Zebeta] 5 mg PO BID@0800,1600 01/29/20 [History] Calcium Carb-Vit D 500Mg-200Un [Oscal 500+D] 1 tab PO DAILY 01/29/20 [History] Epoetin Jeremias [Procrit] 10,000 unit SQ WE 01/29/20 [History] Ezetimibe [Zetia] 10 mg PO DAILY 01/29/20 [History] Ferrous Sulfate [Feosol] 325 mg PO DAILY 01/29/20 [History] Insuln Asp Prt/Insulin Aspart [NovoLOG MIX 70-30 VIAL] 13 unit SQ HS@1900 PRN 01/29/20 [History] Insuln Asp Prt/Insulin Aspart [NovoLOG MIX 70-30 VIAL] 20 unit SQ DAILY@0730 PRN 01/29/20 [History] Insuln Asp Prt/Insulin Aspart [NovoLOG MIX 70-30 VIAL] 30 unit SQ DAILY@1800 01/29/20 [History] Multivitamins, Thera [Multivitamin (formulary)] 1 tab PO DAILY 01/29/20 [History] Omeprazole [PriLOSEC] 20 mg PO DAILY 01/29/20 [History] Torsemide [Demadex] 50 mg PO DAILY 01/29/20 [History] Ubidecarenone [Co Q-10] 200 mg PO DAILY 01/29/20 [History] Venlafaxine HCl [Effexor XR] 37.5 mg PO DAILY 01/29/20 [History] Follow up Appointment(s)/Referral(s): Nonstaff,Physician [REFERRING] - 1-2 days - Preliminary Cause of Preliminary Cause of : Acute systolic congestive heart failure
[2020-02-02] MEDS ORDERED: FUROSEMIDE 10 MG/ML 4 ML VIAL IV SCH (16:00)
--- NOTE | 2020-02-02 17:35 | OP ---
OPERATIVE REPORT OPERATIVE REPORT: Left-sided thoracentesis. PREOPERATIVE DIAGNOSIS: Left pleural effusion. POSTOPERATIVE DIAGNOSIS: Left pleural effusion. ANESTHESIA USED: 2 mL of 1% lidocaine. PROCEDURE DESCRIPTION: The patient was placed in a sitting upright position. The area below the left scapula was prepared in a sterile fashion and drapes were applied. At the level of the eighth intercostal space and tip of the scapula, which is the area that was marked by ultrasound, the area was locally anesthetized. Then a 26-gauge needle was inserted at the same site, advanced into the pleural space, and the fluid was localized with the needle. Then a small tiny incision was made, and a standard thoracentesis catheter and needle were used, advanced at the same site into the pleural space. Fluid was obtained, and I drained the roughly 2400 mL of slightly serosanguineous fluid from the left pleural space. Fluid was sent for different diagnostic studies. Procedure was well tolerated. No evidence of any immediate complications. Chest x-ray was done postoperatively and was excellent. No complications. MMODL / IJN: [id number] /
[2020-02-02 23:12] LABS: Glucose, BF Source Pleural Fluid; Glucose, Body Fluid 146 mg/dL; LDH, Body Fluid Source Pleural Fluid
[2020-02-03 01:56] LABS: Total Protein, Body Fluid 1330 mg/dL
[2020-02-03] MEDS ORDERED: DARBEPOETIN ALFA 25 MCG/0.42 ML SYRINGE SQ SCH (10:16)
--- NOTE | 2020-02-05 08:51 | CDI ---
Documentation Clarification Form Date: 02/05/2020 08:28:35 AM From: Barbra DunnArriagaTREVOR hartman, CCDS Admit Date: 01/29/2020 06:05:00 AM Patient Name: Carie Pimentel Visit Number: [id number] Discharge Date: 02/02/2020 04:58:00 PM ATTENTION: The Clinical Documentation Specialists (CDI) and [facility] Coding Staff appreciate your assistance in clarifying documentation. Please respond to the clarification below the line at the bottom and electronically sign. The CDI & [facility] Coding staff will review the response and follow-up if needed. Please note: Queries are made part of the Legal Health Record. If you have any questions, please contact the author of this message via ITS. Dr. Judit Nugent: Chronic Kidney Disease is documented without further specificity or stage. Per the 01/30 Attending Progress Note: "Her baseline Cr 2. FORREST on CKD with baseline Cr 2. Unknown baseline, but on Procrit which infers that anemia is chronic." Per the 02/01 Discharge/ Summary: "FORREST on CKD with baseline Cr 2, Anemia." History/Risk Factors: Chronic Systolic CHF, CKD, Hypertension, DM II, CO in 2019, Paroxysmal Atrial Fibrillation. Clinical Indicators: "The patient is a 64-year-old female with a history of chronic kidney disease, diabetes type 2 was hospitalized in [facility] on December 17 and after a three-week hospitalization patient was transferred to extended care facility. The patient was managed conservatively, states on initial presentation she had a rapid heart rate. He states that at time of discharge patient was also diagnosed with liver failure. The patient was in rehab and her spouse stated that he was notified that she was looking yellow so she was taken to outside facility. In the hospital patient was diagnosed with a non-ST elevation CO, elevated troponin, transaminitis, renal failure, she was transferred for further care." LAB Values: BUN: 01/28: 93^, 01/29: 103^^, 01/30: 111^^, 01/31: 118^^, 01/31: 111^^ Creatinine: 01/28: 2.27^, 01/29: 2.42^, 01/30: 2.42^, 12/14: 2.50^, 02/01: 2.78^ GFR: 01/28: 22, 01/29: 20, 01/30: 20, 01/31: 19, 02/01: 17 Previous GFR: Unknown or not documented. Home Rx: Insulin sq, Aspirin, Demadex, Procrit, Vit C, Cordarone, Zebeta, Feosol, Zetia, Oscal 500 +D, Effexor, Omeprazole Treatment 01/28: IV fluid 500 mls @ 999 mls/hr, IV Solumedrol, IV Heparin, IV Lasix, NitroBid. IV Vancomycin, IV Rocephin added. 01/30 Nephrology Consult: FORREST secondary to cardiorenal syndrome. Baseline creatinine unknown. In order to capture the severity of condition, please clarify the stage of the CKD, if known: CKD Stage 4 (GFR 15-29) Other, please specify Unable to determine [Template Last reviewed: October 2019] Unable to determine, no known baseline GFR available MTDD
== END 2020-02-02 16:58 | disposition expired ==
LOC: SUPCPDRO 05:04 → EC 05:04 → 2SICU 06:05 → 3SCARD 16:04
PROVIDERS: ADMIT Internal Medicine; ATTEND Internal Medicine
DX: I21.4 Non-ST elevation (NSTEMI) myocardial infarction (principal); I50.23 Acute on chronic systolic (congestive) heart failure; K72.00 Acute and subacute hepatic failure without coma; N17.0 Acute kidney failure with tubular necrosis; J91.8 Pleural effusion in other conditions classified elsewhere; I42.9 Cardiomyopathy, unspecified; I13.0 Hypertensive heart and chronic kidney disease with heart failure and stage 1 through stage 4 chronic kidney disease, or unspecified chronic kidney disease; D68.4 Acquired coagulation factor deficiency; E87.3 Alkalosis; B17.9 Acute viral hepatitis, unspecified; Z68.42 Body mass index [BMI] 45.0-49.9, adult; I31.3 Pericardial effusion (noninflammatory); D63.1 Anemia in chronic kidney disease; I27.20 Pulmonary hypertension, unspecified; E11.22 Type 2 diabetes mellitus with diabetic chronic kidney disease; E66.01 Morbid (severe) obesity due to excess calories; I48.0 Paroxysmal atrial fibrillation; E11.39 Type 2 diabetes mellitus with other diabetic ophthalmic complication; Z79.4 Long term (current) use of insulin; I46.2 Cardiac arrest due to underlying cardiac condition; N18.9 Chronic kidney disease, unspecified; Z66 Do not resuscitate; Z20.828 Contact with and (suspected) exposure to other viral communicable diseases; R62.7 Adult failure to thrive; I08.3 Combined rheumatic disorders of mitral, aortic and tricuspid valves; K76.1 Chronic passive congestion of liver; I25.10 Atherosclerotic heart disease of native coronary artery without angina pectoris; I25.2 Old myocardial infarction; H54.8 Legal blindness, as defined in USA; K21.9 Gastro-esophageal reflux disease without esophagitis; K76.9 Liver disease, unspecified; T50.2X5A Adverse effect of carbonic-anhydrase inhibitors, benzothiadiazides and other diuretics, initial encounter; Z79.82 Long term (current) use of aspirin; Z79.899 Other long term (current) drug therapy; Z86.19 Personal history of other infectious and parasitic diseases; Z90.49 Acquired absence of other specified parts of digestive tract; Z87.19 Personal history of other diseases of the digestive system; Z87.01 Personal history of pneumonia (recurrent); Z72.89 Other problems related to lifestyle; Z98.890 Other specified postprocedural states; Z88.8 Allergy status to other drugs, medicaments and biological substances
CPT/HCPCS: 36415; 51702; 71045; 76604; 76700; 76770; 80048; 80053; 80061; 80074; 80202; 80306; 80320; 80329; 81001; 82043; 82140; 82550; 82570; 82728; 82803; 82945; 83036; 83520; 83605; 83615; 83690; 83735; 83880; 84100; 84156; 84157; 84300; 84443; 84484; 84540; 85025; 85027; 85610; 85730; 86140; 87040; 87070; 87077; 87102; 87116; 87186; 87205; 87206; 87252; 87496; 87498; 87502; 87529; 87634; 87635; 87798; 88305; 89050; 93005; 93306; 96365; 96366; 96368; 96375; 96376; 99291